=== PATIENT | male | born 2000 | race Caucasian/White ===

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

== ENCOUNTER 2022-10-23 01:16 | Emergency (ER) | payer BC ==
[2022-10-23 01:24] VITALS: TEMP 99.1
[2022-10-23] MEDS ORDERED: IBUPROFEN 400 MG TAB PO STA (02:36)
--- NOTE | 2022-10-23 02:42 | XR ---
EXAM: XR Right Hand Complete, 3 or More Views CLINICAL HISTORY: ITS.REASON XR Reason: pain TECHNIQUE: Frontal, lateral and oblique views of the right hand. COMPARISON: No relevant prior studies available. FINDINGS: Bones/joints: Transverse fracture of the proximal shaft of the first metacarpal with mild angulation. Soft tissues: Unremarkable. No radiopaque foreign body. IMPRESSION: Transverse fracture of the proximal shaft of the first metacarpal with mild angulation.
--- NOTE | 2022-10-23 03:04 | ED ---
Upper Extremity HPI - General Chief Complaint: Extremity Injury, Upper Stated Complaint: Right Hand Injury Time Seen by Provider: 10/23/22 02:26 Source: patient Mode of arrival: ambulatory - History of Present Illness Initial Comments: 22-year-old male presenting with chief complaint of right hand pain. Patient states that he was angry and punched a concrete wall. He is having pain at the base of the first metacarpal. No snuffbox tenderness. Pain with range of motion. He admits to swelling. - Related Data Allergies Allergy/AdvReac Type Severity Reaction Status Date / Time No Known Allergies Allergy Verified 10/23/22 01:24 Review of Systems ROS Statement: Those systems with pertinent positive or pertinent negative responses have been documented in the HPI. ROS Other: All systems not noted in ROS Statement are negative. Past Medical History Past Medical History: No Reported History History of Any Multi-Drug Resistant Organisms: None Reported Past Surgical History: No Surgical Hx Reported Past Psychological History: ADD/ADHD Smoking Status: Vaper Past Alcohol Use History: None Reported Past Drug Use History: None Reported General Exam Limitations: no limitations General appearance: alert, in no apparent distress Head exam: Present: atraumatic, normocephalic, normal inspection Eye exam: Present: normal appearance, EOMI Neck exam: Present: normal inspection, full ROM Right Forearm Wrist exam: Absent: tenderness over anatomical snuff box Hand Wrist exam: Present: full ROM, tenderness, swelling (base of the first metacarpal) Vascular: Absent: vascular compromise Neurological exam: Present: alert, oriented X3, CN II-XII intact Psychiatric exam: Present: normal affect, normal mood Skin exam: Present: warm, dry, intact, normal color. Absent: rash Course Vital Signs 10/23/22 10/23/22 01:22 03:16 Temperature 99.1 F Pulse Rate 71 75 Respiratory 16 18 Rate Blood Pressure 111/67 112/71 O2 Sat by Pulse 97 97 Oximetry Procedures - Orthopedic Splinting/Casting Injury #1 Side: right Upper Extremity Injury Location: hand Upper Extremity Immobilizer: thumb spica Medical Decision Making - Medical Decision Making Was pt. sent in by a medical professional or institution (, PA, NET TECHNICAL ARCHITECT, urgent care, hospital, or [place] [facility] facility...) When possible be specific @ -No Did you speak to anyone other than the patient for history (EMS, parent, family, police, friend...)? What history was obtained from this source @ -No Did you review nursing and triage notes (agree or disagree)? Why? @ -I reviewed and agree with nursing and triage notes Were old charts reviewed (outside hosp., previous admission, EMS record, old EKG, old radiological studies, urgent care reports/EKG's, [place] [facility] facility records)? Report findings @ -No old charts were reviewed Differential Diagnosis (chest pain, altered mental status, abdominal pain women, abdominal pain men, vaginal bleeding, weakness, fever, dyspnea, syncope, headache, dizziness, GI bleed, back pain, seizure, CVA, palpatations, mental health, musculoskeletal)? @ -Differential Musculoskeletal Muscular strain, contusion, ligament sprain, fracture, arthritis, septic arthr itis, bursitis, cellulitis, muscle spasm, nerve compression, DVT, arterial occlusion, herpes zoster, electrolyte abnormality, tumor.... This is not meant to be in all inclusive list EKG interpreted by me (3pts min.). @ -As above X-rays interpreted by me (1pt min.). @ -Transverse fracture of the proximal shaft of the first metacarpal with mild angulation CT interpreted by me (1pt min.). @ -None done U/S interpreted by me (1pt. min.). @ -None done What testing was considered but not performed or refused? (CT, X-rays, U/S, labs)? Why? @ -None What meds were considered but not given or refused? Why? @ -None Did you discuss the management of the patient with other professionals (professionals i.e. , PA, NET TECHNICAL ARCHITECT, lab, RT, psych nurse, social science instructor, diagnostic tech, teacher, corporate officer, employment evaluator/case manager)? Give summary @ -No Was smoking cessation discussed for >3mins.? @ -No Was critical care preformed (if so, how long)? @ -No Were there social determinants of health that impacted care today? How? (Homelessness, low income, unemployed, alcoholism, drug addiction, transportation, low edu. Level, literacy, decrease access to med. care, longterm, rehab)? @ -No Was there de-escalation of care discussed even if they declined (Discuss DNR or withdrawal of care, Hospice)? DNR status @ -No What co-morbidities impacted this encounter? (DM, HTN, Smoking, COPD, CAD, Cancer, CVA, ARF, Chemo, Hep., AIDS, mental health diagnosis, sleep apnea, morbid obesity)? @ -None Was patient admitted / discharged? Hospital course, mention meds given and route, prescriptions, significant lab abnormalities, going to OR and other pertinent info. @ -22-year-old male presenting with chief complaint of right hand pain after punching a wall out of anger. X-ray shows fracture at the base of the first metacarpal. Patient is placed in thumb spica splint and educated on supportive management. Instructed to follow up with orthopedics. Follow-up with PCP. Report back to ER with any new or worsening symptoms. Discussed return parameters and answered all questions. Patient conveyed verbal understanding and agreed to the plan. I discussed this case in detail with my attending Dr. Rankin Undiagnosed new problem with uncertain prognosis? @ -No Drug Therapy requiring intensive monitoring for toxicity (Heparin, Nitro, Insulin, Cardizem)? @ -No Were any procedures done? @ -Thumb spica splint applied Diagnosis/symptom? @ -Thumb fracture Acute, or Chronic, or Acute on Chronic? @ -Acute Uncomplicated (without systemic symptoms) or Complicated (systemic symptoms)? @ -Uncomplicated Side effects of treatment? @ -No Exacerbation, Progression, or Severe Exacerbation? @ -No Poses a threat to life or bodily function? How? (Chest pain, [place], [place], pneumonia, PE, COPD, DKA, ARF, appy, cholecystitis, CVA, Diverticulitis, Homicidal, Suicidal, threat to staff... and all critical care pts) @ -No Disposition Clinical Impression: First metacarpal bone fracture Disposition: HOME SELF-CARE Condition: Good Instructions (If sedation given, give patient instructions): Thumb Fracture (ED) Additional Instructions: Follow up with orthopedics. Report back to ER with any new or worsening symptoms. Take Motrin and Tylenol as needed for pain control. Is patient prescribed a controlled substance at d/c from ED?: No Referrals: Curt Maurer MD [Primary Care Provider] - 1-2 days Norberto Tate DO [Doctor of Osteopathic Medicine] - 1-2 days Time of Disposition: 03:04
[2022-10-23 03:17] VITALS: BP 112/71; PULSE 75; RESP 18
== END 2022-10-23 03:55 | disposition home or self-care (01) ==
LOC: EC 01:16
DX: S62.241A Displaced fracture of shaft of first metacarpal bone, right hand, initial encounter for closed fracture (principal); F17.290 Nicotine dependence, other tobacco product, uncomplicated; Z86.59 Personal history of other mental and behavioral disorders; W22.09XA Striking against other stationary object, initial encounter
CPT/HCPCS: 29125; 99283

== ENCOUNTER 2023-08-15 06:35 | Emergency (ER) | payer BC, OTHER ==
[2023-08-15] MEDS: SODIUM CHLORIDE 0.9% 1,000 ML IV STA (06:58)
[2023-08-15 07:00] VITALS: TEMP 98
[2023-08-15] MEDS: levETIRAcetam IV 500 MG/5 ML VIAL IVP STA (07:00)
--- NOTE | 2023-08-15 07:11 | ED ---
General Adult HPI - General Source: patient, RN notes reviewed, old records reviewed Mode of arrival: EMS Limitations: no limitations <Silvio Keith - Last Filed: 08/15/23 07:08> <Sidney Monroy - Last Filed: 08/15/23 09:03> - General Chief complaint: Seizure Stated complaint: Seizure Time Seen by Provider: 08/15/23 06:38 - History of Present Illness Initial comments: Patient is a 23-year-old male who presents emergency department for seizure. Apparently had 2 seizures at home this morning. Patient is a poor historian regarding this. He was postictal afterwards. He woke up "seizing in bed." He was violent at the scene initially but he is alert and oriented x 4 at this time. No history of seizures. No recent trauma. Is not on blood thinners. Endorses drinking alcohol last night as well as frequent marijuana use. No other drugs. Presents for further evaluation at this time.Denies any loss of bowel or bladder. Denies biting his tongue. (Silvio Keith) - Related Data Previous Rx's Medication Instructions Recorded levETIRAcetam [Keppra] 500 mg PO Q12HR #60 tab 08/15/23 Allergies Allergy/AdvReac Type Severity Reaction Status Date / Time red dye AdvReac inflammatio Verified 08/15/23 08:18 n Review of Systems ROS Other: All systems not noted in ROS Statement are negative. <Silvio Keith - Last Filed: 08/15/23 07:08> ROS Other: All systems not noted in ROS Statement are negative. <Sidney Monroy - Last Filed: 08/15/23 09:03> ROS Statement: Those systems with pertinent positive or pertinent negative responses have been documented in the HPI. Review of Systems: CONST: Denies fever EYES: Denies blurry vision ENT: Denies nasal congestion C/V: Denies Chest pain RESP: Denies shortness of breath GI: Denies abdominal pain : Denies dysuria SKIN: Denies rash. MSK: Denies joint pain. 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 HEAD: Normal with no signs of head trauma. EYES: PERRLA, EOMI, conjunctiva normal, no discharge. Pupils are 3 mm and equal bilaterally. ENT: Hearing grossly intact, normal oropharynx. RESPIRATORY: Clear breath sounds bilaterally. No wheezes, rales, or rhonchi. C/V: Regular rate and rhythm. S1 and S2 auscultated, no edema, peripheral pulses 2+ and intact throughout ABD: Abd is soft, nontender, nondistended EXT: Normal range of motion, no obvious deformity SKIN: No rashes or lesions observed on exposed skin. NEURO: Alert and oriented x 4. Cranial nerves II-XII intact. No focal sensory or strength deficits. GCS 15. NIH is 0. (Silvio Keith) Course Vital Signs 08/15/23 08/15/23 06:36 07:35 Temperature 98 F Pulse Rate 73 65 Respiratory 18 16 Rate Blood Pressure 117/74 112/78 O2 Sat by Pulse 96 97 Oximetry Medical Decision Making - EKG Data -: EKG Interpreted by Me <Silvio Keith - Last Filed: 08/15/23 07:08> - Lab Data Result diagrams: 08/15/23 06:55 08/15/23 06:55 <MonroySidney - Last Filed: 08/15/23 09:03> - Medical Decision Making Was pt. sent in by a medical professional or institution (, PA, AIRFLIGHT ATTENDANTS SUPERVISOR, urgent care, hospital, or residential...) When possible be specific @ -No Did you speak to anyone other than the patient for history (EMS, parent, family, police, friend...)? What history was obtained from this source @ -No Did you review nursing and triage notes (agree or disagree)? Why? @ -I reviewed and agree with nursing and triage notes Were old charts reviewed (outside hosp., previous admission, EMS record, old EKG, old radiological studies, urgent care reports/EKG's, residential records)? Report findings @ -No old charts were reviewed Differential Diagnosis (chest pain, altered mental status, abdominal pain women, abdominal pain men, vaginal bleeding, weakness, fever, dyspnea, syncope, headache, dizziness, GI bleed, back pain, seizure, CVA, palpatations, mental health, musculoskeletal)? @ -Differential Seizure: Recurrent seizure disorder, febrile seizure, alcohol withdrawal, stimulants, meningitis, encephalitis, intercranial hemorrhage, intracranial tumor, stroke, eclampsia, thyrotoxicosis, hypocalcemia, hyponatremia, hypernatremia, hypomagnesemia, psychogenic, this is not meant to be an all-inclusive list. EKG interpreted by me (3pts min.). @ -As above X-rays interpreted by me (1pt min.). @ -None done CT interpreted by me (1pt min.). @ -Pending U/S interpreted by me (1pt. min.). @ -None done What testing was considered but not performed or refused? (CT, X-rays, U/S, labs)? Why? @ -None What meds were considered but not given or refused? Why? @ -None Did you discuss the management of the patient with other professionals (professionals i.e. , PA, AIRFLIGHT ATTENDANTS SUPERVISOR, lab, RT, psych nurse, healthcare social worker, bartender manager, teacher, air defence officer, case investigator)? Give summary @ -No Was smoking cessation discussed for >3mins.? @ -No Was critical care preformed (if so, how long)? @ -No Were there social determinants of health that impacted care today? How? (Homelessness, low income, unemployed, alcoholism, drug addiction, trans portation, low edu. Level, literacy, decrease access to med. care, long-term, rehab)? @ -No Was there de-escalation of care discussed even if they declined (Discuss DNR or withdrawal of care, Hospice)? DNR status @ -No What co-morbidities impacted this encounter? (DM, HTN, Smoking, COPD, CAD, Cancer, CVA, ARF, Chemo, Hep., AIDS, mental health diagnosis, sleep apnea, morbid obesity)? @ -None Was patient admitted / discharged? Hospital course, mention meds given and route, prescriptions, significant lab abnormalities, going to OR and other pertinent info. @ -Patient presents with 2 seizures from home. Would be new onset seizure. Apparently witnessed in bed. Patient currently has no acute complaints is not postictal at this time but apparently was postictal at the scene. Presents for further evaluation. Vital signs currently within acceptable limits. Will obtain seizure workup including CT brain. Patient in agreement this plan. He is administered IV Keppra at this time as well. EKG shows no signs of acute ischemia. Remainder the workup pending at this time. Patient signed out to Dr. Monroy pending results of workup. Undiagnosed new problem with uncertain prognosis? @ -No Drug Therapy requiring intensive monitoring for toxicity (Heparin, Nitro, Insulin, Cardizem)? @ -No Were any procedures done? @ -No (Silvio Keith) CT brain interpreted by myself shows no acute process. Patient reevaluated. Patient is updated on results. Patient was recommended admission secondary to 2 seizures. Case was also discussed with neurology Dr. Vidal who agrees with admission secondary to second seizure. He will evaluate today. Patient was recommended admission for purposes of neurology evaluation and possible medication. Patient refuses this. Patient does demonstrate medical decision-making. Patient is alert and appropriate. Patient refuses admission and will leave AGAINST MEDICAL ADVICE. Patient is agreeable to follow-up with his doctor for neurology consult. Patient is made aware of state law of no driving 6 months Patient also advised on avoiding anything with potential injury at work. (Sidney Monroy) - Lab Data Lab Results 08/15/23 08/15/23 08/15/23 Range/Units 06:55 06:55 07:00 WBC 6.9 (3.8-10.6) k/uL RBC 4.93 (4.30-5.90) m/uL Hgb 15.3 (13.0-17.5) gm/dL Hct 45.8 (39.0-53.0) % MCV 93.0 (80.0-100.0) fL MCH 31.0 (25.0-35.0) pg MCHC 33.3 (31.0-37.0) g/dL RDW 11.7 (11.5-15.5) % Plt Count 261 (150-450) k/uL MPV 7.0 Neutrophils % 48 % Lymphocytes % 40 % Monocytes % 7 % Eosinophils % 2 % Basophils % 1 % Neutrophils # 3.3 (1.3-7.7) k/uL Lymphocytes # 2.8 (1.0-4.8) k/uL Monocytes # 0.5 (0-1.0) k/uL Eosinophils # 0.2 (0-0.7) k/uL Basophils # 0.0 (0-0.2) k/uL Sodium 139 (137-145) mmol/L Potassium 4.5 (3.5-5.1) mmol/L Chloride 108 H (98-107) mmol/L Carbon Dioxide 22 (22-30) mmol/L Anion Gap 9 mmol/L BUN 12 (9-20) mg/dL Creatinine 0.81 (0.66-1.25) mg/dL Est GFR (CKD-EPI)AfAm >90 (>60 ml/min/1.73 sqM) Est GFR (CKD-EPI)NonAf >90 (>60 ml/min/1.73 sqM) Glucose 93 (74-99) mg/dL Calcium 9.2 (8.4-10.2) mg/dL Magnesium 1.9 (1.6-2.3) mg/dL Total Bilirubin 0.5 (0.2-1.3) mg/dL AST 33 (17-59) U/L ALT 19 (4-49) U/L Alkaline Phosphatase 77 (38-126) U/L Total Protein 6.9 (6.3-8.2) g/dL Albumin 4.4 (3.5-5.0) g/dL Urine Color Yellow Urine Appearance Clear (Clear) Urine pH 5.5 (5.0-8.0) Ur Specific [place] 1.022 (1.001-1.035) Urine Protein Trace H (Negative) Urine Glucose (UA) Negative (Negative) Urine Ketones Trace H (Negative) Urine Blood Negative (Negative) Urine Nitrite Negative (Negative) Urine Bilirubin Negative (Negative) Urine Urobilinogen <2.0 (<2.0) mg/dL Ur Leukocyte Esterase Negative (Negative) Urine Opiates Screen Not Detected (NotDetected) Ur Oxycodone Screen Not Detected (NotDetected) Urine Methadone Screen Not Detected (NotDetected) Ur Barbiturates Screen Not Detected (NotDetected) U Tricyclic Antidepress Not Detected (NotDetected) Ur Phencyclidine Scrn Not Detected (NotDetected) Ur Amphetamines Screen Not Detected (NotDetected) U Methamphetamines Scrn Not Detected (NotDetected) U Benzodiazepines Scrn Not Detected (NotDetected) Urine Cocaine Screen Not Detected (NotDetected) U Marijuana (THC) Screen Detected H (NotDetected) Serum Alcohol <10 mg/dL - EKG Data EKG Comments: 12-lead Electrocardiogram Interpretation Note EKG was reviewed and interpreted by myself. 12-lead ECG performed at 0644 is interpreted by me as revealing normal sinus rhythm at a rate of 76 beats per minute. Constantia is normal. TN interval is 151 ms, QRS durations 99 ms, QTc is 447 ms.. There were no ST or T wave abnormalities to suggest myocardial ischemia or injury. R wave progression across the precordium was satisfactory. By my interpretation this EKG is non-diagnostic for acute ischemia. (Silvio Keith) Disposition <Silvio Keith - Last Filed: 08/15/23 07:08> Is patient prescribed a controlled substance at d/c from ED?: No Time of Disposition: 09:02 <Sidney Monroy - Last Filed: 08/15/23 09:03> Clinical Impression: New onset seizure Disposition: LEFT AGAINST MEDICAL ADVICE Instructions (If sedation given, give patient instructions): Seizure/Epilepsy Discharge Instructions & Follow-Up Additional Instructions: No driving until 6 months seizure-free. Please do follow-up with your primary care physician in the next day or 2 and consider neurology evaluation. Return for recurrent seizures, worsening symptoms or other concerns. Prescription sent to pharmacy Prescriptions: levETIRAcetam [Keppra] 500 mg PO Q12HR #60 tab Referrals: Curt Maurer MD [Primary Care Provider] - 1-2 days
[2023-08-15 07:15] LABS: Basophils % (A) 1 %; Eosinophils # (A) 0.2 k/uL (0-0.7); Eosinophils % (A) 2 %; HCT 45.8 % (39.0-53.0); HGB 15.3 gm/dL (13.0-17.5); Lymphocytes # (A) 2.8 k/uL (1.0-4.8); Lymphocytes % (A) 40 %; MCHC 33.3 g/dL (31.0-37.0); Monocytes # (A) 0.5 k/uL (0-1.0); Monocytes % (A) 7 %; Neutrophils # (A) 3.3 k/uL (1.3-7.7); Neutrophils % (A) 48 %; Platelet Count 261 k/uL (150-450); RBC 4.93 m/uL (4.30-5.90); RDW 11.7 % (11.5-15.5); WBC 6.9 k/uL (3.8-10.6)
[2023-08-15 07:27] LABS: Appearance,Urine Clear (Clear); Bilirubin,Urine Negative (Negative); Blood,Urine Negative (Negative); Color,Urine Yellow; Glucose,Urine (UA) Negative (Negative); Ketones,Urine Trace (Negative); Leukocyte Esterase,Urine Negative (Negative); Nitrite,Urine Negative (Negative); PH, Urine 5.5 (5.0-8.0); Protein,Urine Trace (Negative); Specific Gravity,Urine 1.022 (1.001-1.035); Urobilinogen,Urine <2.0 mg/dL (<2.0)
[2023-08-15 07:35] LABS: ALT 19 U/L (4-49); AST 33 U/L (17-59); African American GFR (CKD) >90 (>60 ml/min/1.73 sqM); Albumin 4.4 g/dL (3.5-5.0); Alcohol <10 mg/dL; Alkaline Phosphatase 77 U/L (38-126); Anion Gap 9 mmol/L; Blood Urea Nitrogen 12 mg/dL (9-20); Calcium 9.2 mg/dL (8.4-10.2); Carbon Dioxide 22 mmol/L (22-30); Chloride 108 mmol/L (98-107); Glucose 93 mg/dL (74-99); Magnesium 1.9 mg/dL (1.6-2.3); Non-African American GFR(CKD) >90 (>60 ml/min/1.73 sqM); Potassium 4.5 mmol/L (3.5-5.1); Sodium 139 mmol/L (137-145); Total Bilirubin 0.5 mg/dL (0.2-1.3); Total Protein 6.9 g/dL (6.3-8.2)
[2023-08-15 07:53] LABS: Amphetamine Screen,Urine Not Detected (NotDetected); Barbiturate Screen,Urine Not Detected (NotDetected); Benzodiazepines Screen,Urine Not Detected (NotDetected); Cocaine Screen,Urine Not Detected (NotDetected); Methadone Screen, Urine Not Detected (NotDetected); Opiate Screen,Urine Not Detected (NotDetected); Oxycodone Screen, Urine Not Detected (NotDetected); Phencyclidine Screen,Urine Not Detected (NotDetected); Tricyclic Antidepressant,Urine Not Detected (NotDetected); Urn Cannabinoid Scrn Detected (NotDetected)
--- NOTE | 2023-08-15 08:11 | CT ---
EXAMINATION TYPE: CT brain wo con DATE OF EXAM: 08/15/2023 COMPARISON: None INDICATION: Seizure activity DLP: 1064.4 mGycm, Automated exposure control for dose reduction was used. CONTRAST: None CT of the brain is performed utilizing 3 mm thick sections through the posterior fossa and 3 mm thick sections through the remaining calvarium. Study is performed within 24 hours of arrival to the hosp [place]. No abnormal hyperdensity is present to suggest an acute intracranial hemorrhage. No mass lesion is evident. No acute infarcts are evident. Ventricles and sulci are appropriate for the patient age. Paranasal sinuses and mastoid air cells within the [id number] are clear. IMPRESSION: 1. No acute intracranial process. MRI can be performed as clinically indicated.
[2023-08-15] MEDS ORDERED: levETIRAcetam 500 MG TAB PO STA (09:03)
[2023-08-15 09:43] VITALS: BP 114/75; PULSE 63; RESP 20
== END 2023-08-15 09:08 | disposition left against medical advice (07) ==
LOC: SUPCPDRO 06:35 → EC 06:35
DX: R56.9 Unspecified convulsions (principal); F17.290 Nicotine dependence, other tobacco product, uncomplicated; Z91.041 Radiographic dye allergy status; Z53.29 Procedure and treatment not carried out because of patient's decision for other reasons
CPT/HCPCS: 36415; 93005; 80053; 83735; 85025; 81003; 80306; 80320; 70450; 99285; 96374; 96361; J1953

== ENCOUNTER 2023-09-01 15:47 | Emergency (ER) | payer OTHER ==
[2023-09-01 15:53] VITALS: TEMP 98.9
--- NOTE | 2023-09-01 16:18 | ED ---
General Adult HPI - General Chief complaint: Shortness of Breath Stated complaint: L lung hurts Time Seen by Provider: 09/01/23 15:57 Source: patient Mode of arrival: ambulatory Limitations: no limitations - History of Present Illness Initial comments: Dictation was produced using orangutrans dictation software. please excuse any grammatical, word or spelling errors. Chief Complaint: 23-year-old male with rib pain History of Present Illness: 23-year-old male presents to the emergency department with left lateral rib pain. Patient states that his symptoms have been ongoing for the last couple days. He was cutting grass started to feel like he was having a allergic reaction to environmental allergens. States that it felt like his pain was worse then. Patient states it is worse when he takes a deep breath. Denies any fever. No shortness of breath. The ROS documented in this emergency department record has been reviewed and confirmed by me. Those systems with pertinent positive or negative responses have been documented in the HPI. All other systems are other negative and/or noncontributory. - Related Data Previous Rx's Medication Instructions Recorded levETIRAcetam [Keppra] 500 mg PO Q12HR #60 tab 08/15/23 Allergies Allergy/AdvReac Type Severity Reaction Status Date / Time red dye AdvReac inflammatio Verified 08/15/23 08:18 n Review of Systems ROS Statement: Those systems with pertinent positive or pertinent negative responses have been documented in the HPI. ROS Other: All systems not noted in ROS Statement are negative. Past Medical History Past Medical History: No Reported History, Seizure Disorder History of Any Multi-Drug Resistant Organisms: None Reported Past Surgical History: No Surgical Hx Reported Past Psychological History: ADD/ADHD Smoking Status: Vaper Past Alcohol Use History: None Reported Past Drug Use History: None Reported, Marijuana General Exam - General Exam Comments Initial Comments: PHYSICAL EXAM: General Impression: Alert and oriented x3, not in acute distress HEENT: Normocephalic atraumatic, extra-ocular movements intact, pupils equal and reactive to light bilaterally, mucous membranes moist. Cardiovascular: Heart regular rate and rhythm Chest: Able to complete full sentences, no retractions, no tachypnea, reproducible palpatory tenderness to the left lateral rib Abdomen: abdomen soft, non-tender, non-distended, no organomegaly Musculoskeletal: Pulses present and equal in all extremities, no peripheral edema Motor: no focal deficits noted Neurological: CN II-XII grossly intact, no focal motor or sensory deficits noted Skin: Intact with no visualized rashes Psych: Normal affect and mood Limitations: no limitations Course Vital Signs 09/01/23 09/01/23 09/01/23 15:50 16:47 17:30 Temperature 98.9 F Pulse Rate 58 L 62 Respiratory 20 16 16 Rate Blood Pressure 104/63 111/70 O2 Sat by Pulse 98 98 Oximetry Medical Decision Making - Medical Decision Making Was pt. sent in by a medical professional or institution (, SABINE, ROTOGRAVURE PRESS OPERATOR, urgent care, hospital, or fdc...) When possible be specific @ -No Did you speak to anyone other than the patient for history (EMS, parent, family, police, friend...)? What history was obtained from this source @ -No Did you review nursing and triage notes (agree or disagree)? Why? @ -I reviewed and agree with nursing and triage notes Were old charts reviewed (outside hosp., previous admission, EMS record, old EKG, old radiological studies, urgent care reports/EKG's, fdc records)? Report findings @ -No old charts were reviewed Differential Diagnosis (chest pain, altered mental status, abdominal pain women, abdominal pain men, vaginal bleeding, musculoskeletal, weakness, fever, dyspnea, syncope, headache, dizziness, GI bleed, back pain, seizure, CVA, palpatations, mental health)? @ -Differential Chest Pain: Stable Angina, Unstable Angina, STEMI, NSTEMI Aortic Dissection, Pneumothorax, Musculoskeletal, Esophageal Spasm GERD, Cholecystitis, Pancreatitis, Zoster, this is not meant to be an all-inclusive list. EKG interpreted by me (3pts min.). @ -None done X-rays interpreted by me (1pt min.). @ -Chest x-ray is nonacute CT interpreted by me (1pt min.). @ -None done U/S interpreted by me (1pt. min.). @ -None done What testing was considered but not performed or refused? (CT, X-rays, U/S, labs)? Why? @ -None What meds were considered but not given or refused? Why? @ -None Did you discuss the management of the patient with other professionals (professionals i.e. , SABINE, ROTOGRAVURE PRESS OPERATOR, lab, RT, psych nurse, social work nurse, commissioning specialist, teacher, lodge officer, case advocate)? Give summary @ -No Was smoking cessation discussed for >3mins.? @ -No Was critical care preformed (if so, how long)? @ -No Were there social determinants of health that impacted care today? How? (Homelessness, low income, unemployed, alcoholism, drug addiction, transportation, low edu. Level, literacy, decrease access to med. care, retirement, rehab)? @ -No Was there de-escalation of care discussed even if they declined (Discuss DNR or withdrawal of care, Hospice)? DNR status @ -No What co-morbidities impacted this encounter? (DM, HTN, Smoking, COPD, CAD, Cancer, CVA, ARF, Chemo, Hep., AIDS, mental health diagnosis, sleep apnea, morbid obesity)? @ -None Was patient admitted / discharged? Hospital course, mention meds given and route, prescriptions, significant lab abnormalities, going to OR and other pertinent info. @ -23-year-old male presents emergency department clinical presentation consistent with rib strain. Vital signs stable. Physical examination is benign. X-ray is nonacute. Patient given Lidoderm patch discharge told to take [id number] analgesics. Undiagnosed new problem with uncertain prognosis? @ -No Drug Therapy requiring intensive monitoring for toxicity (Heparin, Nitro, Insulin, Cardizem)? @ -No Were any procedures done? @ -No Diagnosis/symptom? Acute, or Chronic, or Acute on Chronic? Uncomplicated (w ithout systemic symptoms) or Complicated (systemic symptoms)? @ -Strain Side effects of treatment? @ -No Exacerbation, Progression, or Severe Exacerbation? @ -No Poses a threat to life or bodily function? How? (Chest pain, [place], [place], pneumonia, PE, COPD, DKA, ARF, appy, cholecystitis, CVA, Diverticulitis, Homicidal, Suicidal, threat to staff... and all critical care pts) @ -No Disposition Clinical Impression: Chest wall muscle strain Disposition: HOME SELF-CARE Condition: Good Instructions (If sedation given, give patient instructions): Chest Wall Pain (ED) Is patient prescribed a controlled substance at d/c from ED?: No Referrals: Curt Maurer MD [Primary Care Provider] - 1-2 days Time of Disposition: 18:02
[2023-09-01] MEDS: LIDOCAINE 4% PATCH TOPICAL ONE (16:34)
[2023-09-01 16:49] VITALS: RESP 16
[2023-09-01] MEDS: IBUPROFEN 600 MG TAB PO STA (17:49)
--- NOTE | 2023-09-01 18:05 | XR ---
EXAMINATION TYPE: XR chest 2V DATE OF EXAM: 09/01/2023 5:12 PM CLINICAL INDICATION:Male, 23 years old with history of rib pain; [facility] COMPARISON: None TECHNIQUE: XR chest 2V. Frontal and lateral views of the chest.. FINDINGS: Lines/Tubes/Devices: No indwelling lines are seen. Heart/mediastinum: Heart size is normal. Mediastinum appears normal. Pulmonary vascularity: Not increased, Lungs/Pleura: There is a small vague patch of opacity in the left midlung zone suggestive of small in filtrate. Lungs and pleural spaces are otherwise clear. Musculoskeletal: No acute osseous abnormality demonstrated in the limits of the exam. Other findings: None. IMPRESSION: Small focal opacity in the left midlung zone, may represent evolving pneumonia. Correlate clinically, and follow-up to resolution.
[2023-09-01 18:08] VITALS: BP 118/82; PULSE 91
== END 2023-09-01 18:07 | disposition home or self-care (01) ==
LOC: EC 15:47
DX: S29.011A Strain of muscle and tendon of front wall of thorax, initial encounter (principal); F17.290 Nicotine dependence, other tobacco product, uncomplicated; Z91.041 Radiographic dye allergy status; X58.XXXA Exposure to other specified factors, initial encounter
CPT/HCPCS: 71046; 99285

== ENCOUNTER 2023-09-09 20:46 | Emergency (ER) | payer OTHER ==
[2023-09-09 20:53] VITALS: RESP 18; TEMP 98.8
--- NOTE | 2023-09-09 21:12 | ED ---
Chest Pain HPI - General Source: patient, RN notes reviewed Mode of arrival: ambulatory Limitations: no limitations <Octavia Aguilar - Last Filed: 09/09/23 23:20> <Chong Desir - Last Filed: 09/10/23 15:32> - General Chief Complaint: Chest Pain Stated Complaint: Rib pain Time Seen by Provider: 09/09/23 21:06 - History of Present Illness Initial Comments: 23-year-old male with no significant past medical history presenting to the ER with chief complaint of left-sided chest pain x 1 week. Reports he was cutting the lawn last week when he started to feel the pain on the left side. He describes the pain as a 9 out of 10, sharp in quality, and he feels like he cannot take a full breath because the pain is so severe. He reports it feels as though there is something inside of his left lung that is preventing him from taking a deep breath. The pain radiates to the back. He was seen in the ER for this last week where a chest x-ray was performed and he was told he had a muscle strain. He has been taking ibuprofen and using the lidocaine patches with little relief. Denies midsternal chest pain, cough, wheezing, fever, nasal congestion, sore throat, abdominal pain, vomiting. He has never had this before. (Octavia Aguilar) - Related Data Home Medications Medication Instructions Recorded Confirmed Azithromycin [Zithromax] See Taper PO DIRECTED 09/10/23 09/10/23 Previous Rx's Medication Instructions Recorded traMADol HCl [Ultram] 50 mg PO Q6H PRN #12 tab 09/10/23 Allergies Allergy/AdvReac Type Severity Reaction Status Date / Time gluten AdvReac Unknown Verified 09/10/23 11:56 lactose AdvReac Diarrhea Verified 09/10/23 11:56 red dye AdvReac inflammatio Verified 09/10/23 11:56 n Review of Systems ROS Other: All systems not noted in ROS Statement are negative. <Octavia Aguilar - Last Filed: 09/09/23 23:20> ROS Other: All systems not noted in ROS Statement are negative. <Chong Desir - Last Filed: 09/10/23 15:32> ROS Statement: Those systems with pertinent positive or pertinent negative responses have been documented in the HPI. Past Medical History Past Medical History: No Reported History, Seizure Disorder History of Any Multi-Drug Resistant Organisms: None Reported Past Surgical History: No Surgical Hx Reported Past Psychological History: ADD/ADHD Smoking Status: Current every day smoker, Vaper Past Alcohol Use History: None Reported Past Drug Use History: None Reported <Octavia Aguilar - Last Filed: 09/09/23 23:20> General Exam Limitations: no limitations General appearance: alert, in no apparent distress Head exam: Present: atraumatic, normocephalic, normal inspection Eye exam: Present: normal appearance, PERRL, EOMI. Absent: scleral icterus, conjunctival injection, periorbital swelling ENT exam: Present: normal exam, mucous membranes moist Neck exam: Present: normal inspection. Absent: tenderness, meningismus, lymphadenopathy Respiratory exam: Present: normal lung sounds bilaterally, chest wall tenderness (Reproducible tenderness on lateral left ribs). Absent: respiratory distress, wheezes, rales, rhonchi, stridor Cardiovascular Exam: Present: regular rate, normal rhythm, normal heart sounds. Absent: systolic murmur, diastolic murmur, rubs, gallop, clicks GI/Abdominal exam: Present: soft, normal bowel sounds. Absent: distended, tenderness, guarding, rebound, rigid Extremities exam: Present: normal inspection, full ROM, normal capillary refill. Absent: tenderness, pedal edema, joint swelling, calf tenderness Back exam: Present: normal inspection Neurological exam: Present: alert, oriented X3, CN II-XII intact Psychiatric exam: Present: normal affect, normal mood Skin exam: Present: warm, dry, intact, normal color. Absent: rash <Octavia Aguilar - Last Filed: 09/09/23 23:20> Course Vital Signs 09/09/23 09/10/23 20:51 02:40 Temperature 98.8 F Pulse Rate 95 89 Respiratory 18 18 Rate Blood Pressure 126/75 118/69 O2 Sat by Pulse 97 97 Oximetry Chest Pain [facility] <Octavia Aguilar - Last Filed: 09/09/23 23:20> <Chong Desir - Last Filed: 09/10/23 15:32> - [facility] EKG reveals normal sinus rhythm with no ST changes. Ventricular rate 80 bpm, NV interval 125, QRS duration 94, QT/QTc 356/391. Was pt. sent in by a medical professional or institution (Dr., PA, FRUIT OR NUT GROWER, urgent care, hospital, or detention...) When possible be specific @ -[No] Did you speak to anyone other than the patient for history (EMS, parent, family, police, friend...)? What history was obtained from this source @ -[No] Did you review nursing and triage notes (agree or disagree)? Why? @ -[I reviewed and agree with nursing and triage notes] Were old charts reviewed (outside hosp., previous admission, EMS record, old EKG, old radiological studies, urgent care reports/EKG's, detention records)? Report findings @ -Previous ER visit from 1 week ago reviewed, patient was discharged with muscular strain at this time Differential Diagnosis (chest pain, altered mental status, abdominal pain women, abdominal pain men, vaginal bleeding, weakness, fever, dyspnea, syncope, headache, dizziness, GI bleed, back pain, seizure, CVA, palpatations, mental health, musculoskeletal)? @ -Differential Chest Pain: Stable Angina, Unstable Angina, STEMI, NSTEMI Aortic Dissection, Pneumothorax, Musculoskeletal, Esophageal Spasm GERD, Cholecystitis, Pancreatitis, Zoster, this is not meant to be an all-inclusive list. EKG interpreted by me (3pts min.). @ -[As above] X-rays interpreted by me (1pt min.). @ -Chest x-ray reveals new small left pleural effusion with scattered airspace opacities CT interpreted by me (1pt min.). @ -[None done] U/S interpreted by me (1pt. min.). @ -[None done] What testing was considered but not performed or refused? (CT, X-rays, U/S, labs)? Why? @ -[None] What meds were considered but not given or refused? Why? @ -[None] Did you discuss the management of the patient with other professionals (professionals i.e. SABINE Che, FRUIT OR NUT GROWER, lab, RT, psych nurse, social contact worker, internal controls analyst, teacher, gifts officer, hospice case manager)? Give summary @ -[No] Was smoking cessation discussed for >3mins.? @ -[No] Was critical care preformed (if so, how long)? @ -[No] Were there social determinants of health that impacted care today? How? (Homelessness, low income, unemployed, alcoholism, drug addiction, transportation, low edu. Level, literacy, decrease access to med. care, prison, rehab)? @ -[No] Was there de-escalation of care discussed even if they declined (Discuss DNR or withdrawal of care, Hospice)? DNR status @ -[No] What co-morbidities impacted this encounter? (DM, HTN, Smoking, COPD, CAD, Cancer, CVA, ARF, Chemo, Hep., AIDS, mental health diagnosis, sleep apnea, morbid obesity)? @ -[None] Was patient admitted / discharged? Hospital course, mention meds given and route, prescriptions, significant lab abnormalities, going to OR and other pertinent info. @ -Patient was seen and evaluated for left-sided rib pain x 1 week. Vitals upon arrival are unremarkable, heart rate is 95 bpm, he is afebrile, satting 97% on room air. Physical examination is remarkable for reproducible pain of left lateral ribs. Patient is given IM Toradol for pain. EKG was performed and reveals normal sinus rhythm with no ST changes. Chest x-ray reveals new small left pleural effusion with scattered airspace opacities. Lab work including CBC, CMP, troponin, magnesium is remarkable for white blood cell count of 14.4 with left shift, otherwise unremarkable. Case discussed with my attending Dr. Desir and decided to perform a D-dimer at this time to rule out PE. Upon reevaluation, patient is agreeable to the plan. Patient reports pain is unchanged since Toradol injection. Patient is given oral Tylenol. Case signed out to Dr. Desir at 11:15 PM pending D-dimer. (Octavia Aguilar) The patient's D-dimer was mildly elevated and he went for CT scan of the chest which I interpreted as showing presence of left-sided pleural effusion with suspected small infiltrate. There is no evident pulmonary embolism. These findings discussed with the patient and started antibiotics here. They are given follow-up with pulmonology, return parameters discussed Was patient admitted / discharged? Hospital course, mention meds given and route, prescriptions, significant lab abnormalities, going to OR and other pertinent info. @ -[hospital course] Undiagnosed new problem with uncertain prognosis? @ -[No] Drug Therapy requiring intensive monitoring for toxicity (Heparin, Nitro, Insulin, Cardizem)? @ -[No] Were any procedures done? @ -[No] Diagnosis/symptom? @ -[Acute pneumonia Acute pleural effusion Acute, or Chronic, or Acute on Chronic? @ -[Acute Uncomplicated (without systemic symptoms) or Complicated (systemic symptoms)? @ -[Pneumonia complicated by pleural effusion Side effects of treatment? @ -[No] Exacerbation, Progression, or Severe Exacerbation? @ -[No] Poses a threat to life or bodily function? How? (Chest pain, [place], [place], pneumonia, PE, COPD, DKA, ARF, appy, cholecystitis, CVA, Diverticulitis, Homicidal, Suicidal, threat to staff... and all critical care pts) @ -[Yes there is small threat, patient to have close follow-up with pulmonology and return parameters discussed (Chong Desir) Disposition <Octavia Aguilar - Last Filed: 09/09/23 23:20> Is patient prescribed a controlled substance at d/c from ED?: No <Chong Desir - Last Filed: 09/10/23 15:32> Clinical Impression: Pneumonia, Pleural effusion Disposition: HOME SELF-CARE Condition: Good Instructions (If sedation given, give patient instructions): Pleural Effusion (DC), Bacterial Pneumonia (DC) Prescriptions: traMADol HCl [Ultram] 50 mg PO Q6H PRN #12 tab PRN Reason: Pain Referrals: Curt Maurer MD [Primary Care Provider] - 1-2 days Nohemy Antunez MD [STAFF PHYSICIAN] - 1-2 days
--- NOTE | 2023-09-09 21:46 | XR ---
EXAMINATION TYPE: XR chest 2V DATE OF EXAM: 09/09/2023 9:32 PM CLINICAL INDICATION:Male, 23 years old with history of chest pain; [facility] COMPARISON: Chest radiographs from TECHNIQUE: XR chest 2V Frontal and lateral views of the chest. FINDINGS: Lungs/Pleura: New left blunting costophrenic angle. There our scattered airspace opacities in the lef t lung. There is no evidence of right pleural effusion, right focal consolidation, or pneumothorax. Pulmonary vascularity: Unremarkable. Heart/mediastinum: Cardiomediastinal silhouette is unremarkable. Musculoskeletal: No acute osseous pathology. Other findings: None IMPRESSION: New small left pleural effusion scattered airspace opacities. Correlate for pneumonia.
[2023-09-09] MEDS: KETOROLAC 15 MG/ML 1 ML VIAL IM STA (21:55)
[2023-09-09 22:08] LABS: ALT 20 U/L (4-49); AST 18 U/L (17-59); African American GFR (CKD) >90 (>60 ml/min/1.73 sqM); Albumin 4.2 g/dL (3.5-5.0); Alkaline Phosphatase 81 U/L (38-126); Anion Gap 8 mmol/L; Blood Urea Nitrogen 10 mg/dL (9-20); Carbon Dioxide 27 mmol/L (22-30); Chloride 103 mmol/L (98-107); Glucose 101 mg/dL (74-99); Magnesium 1.8 mg/dL (1.6-2.3); Non-African American GFR(CKD) >90 (>60 ml/min/1.73 sqM); Potassium 4.3 mmol/L (3.5-5.1); Sodium 138 mmol/L (137-145); Total Bilirubin 0.9 mg/dL (0.2-1.3)
[2023-09-09 22:45] LABS: Basophils % (A) 0 %; Eosinophils # (A) 0.1 k/uL (0-0.7); Eosinophils % (A) 1 %; HCT 44.9 % (39.0-53.0); HGB 14.9 gm/dL (13.0-17.5); Lymphocytes # (A) 0.8 k/uL (1.0-4.8); Lymphocytes % (A) 6 %; MCH 30.4 pg (25.0-35.0); MCHC 33.3 g/dL (31.0-37.0); MCV 91.3 fL (80.0-100.0); Mean Platelet Volume 7.3; Monocytes # (A) 1.2 k/uL (0-1.0); Monocytes % (A) 8 %; Neutrophils # (A) 12.2 k/uL (1.3-7.7); Neutrophils % (A) 84 %; Platelet Count 358 k/uL (150-450); RBC 4.92 m/uL (4.30-5.90); RDW 11.7 % (11.5-15.5); WBC 14.4 k/uL (3.8-10.6)
[2023-09-09] MEDS: ACETAMINOPHEN TAB 325 MG TAB PO STA (23:19)
--- NOTE | 2023-09-10 02:06 | CT ---
EXAM: CT Angiography Chest With Intravenous Contrast CLINICAL HISTORY: ITS.REASON CT Reason: pleuritic chest pain, possible PE TECHNIQUE: Axial computed tomographic angiography images of the chest with intravenous contrast. CTDI is 11 mGy and DLP is 265.4 mGy-cm. This CT exam was performed using one or more of the following dose reduction techniques: automated exposure control, adjustment of the mA and/or kV according to patient size, and/or use of iterative reconstruction technique. MIP reconstructed images were created and reviewed. COMPARISON: X-ray chest: 09/09/2023 FINDINGS: Motion-induced image degradation. Pulmonary arteries: Unremarkable. No pulmonary embolism. Aorta: No acute findings. No thoracic aortic aneurysm. Lungs: Lingular ill-defined nodular consolidation. Left lower lobe laterally a pleural-based triangular-shaped consolidation continuous posteriorly along the moderate volume left pleural effusion. Pleural space: There is also a loculated pleural fluid seen in the left lung fissure. No pneumothorax. Heart: Unremarkable. No cardiomegaly. No significant pericardial effusion. No evidence of RV dysfunction. Bones/joints: No acute fracture. No dislocation. Soft tissues: Unremarkable. Lymph nodes: Small subcarinal and hilar lymphadenopathy LT>RT. Other findings: Fatty hepatic infiltration.. IMPRESSION: No pulmonary embolism, aortic aneurysm or dissection. Moderate volume left pleural effusion. Loculated pleural fluid in the left lung fissure. Nodular consolidation of the lingula. In the left lower lobe laterally triangular-shaped pleural-based consolidation . Consolidation/atelectasis in the left lower lobe posteriorly adjacent to the pleural effusion. .
[2023-09-10] MEDS: cefTRIAXone 1,000 MG VIAL (IM USE) IM STA (02:30)
[2023-09-10] MEDS: cefTRIAXone IN SWFI 1,000 MG/10 ML SYRINGE IVP STA (02:33)
[2023-09-10] MEDS: AZITHROMYCIN 500 MG TAB PO STA (02:33)
[2023-09-10 02:41] VITALS: BP 118/69; PULSE 89
== END 2023-09-10 02:41 | disposition home or self-care (01) ==
LOC: EC 20:46
DX: J18.9 Pneumonia, unspecified organism (principal); J90 Pleural effusion, not elsewhere classified; F17.290 Nicotine dependence, other tobacco product, uncomplicated; Z91.041 Radiographic dye allergy status; Z91.018 Allergy to other foods; Z91.011 Allergy to milk products
CPT/HCPCS: 36415; 93005; 85379; 80053; 83735; 84484; 85025; 71046; 71275; 99285; 96374; 96372; J0696; J1885; Q9967

== ENCOUNTER 2023-09-10 11:36 | Inpatient (IN) | payer OTHER ==
--- NOTE | 2023-09-10 12:44 | ED ---
General Adult HPI - General Chief complaint: Shortness of Breath Stated complaint: Abd Pain Time Seen by Provider: 09/10/23 12:00 Source: patient, RN notes reviewed, old records reviewed Mode of arrival: wheelchair Limitations: no limitations - History of Present Illness Initial comments: 23-year-old male presents emergency department chief complaint increasing shortness of breath. Patient has had 2 prior ER visits for similar complaints symptoms are worsening. Patient has CT recently showing evidence of moderate effusion and probable pneumonia. Patient states he started on some antibiotics. Patient denies any significant nasal congestion, prior lung illness states he has no send past medical history no recent traveling. He states he has had night sweats, sweating episodes but is unsure of of known fever. Patient denies any trauma no rashes no GI symptoms. - Related Data Previous Rx's Medication Instructions Recorded levETIRAcetam [Keppra] 500 mg PO Q12HR #60 tab 08/15/23 Azithromycin [Zithromax] 0 mg PO DIRECTED #6 tab 09/10/23 traMADol HCl [Ultram] 50 mg PO Q6H PRN #12 tab 09/10/23 Allergies Allergy/AdvReac Type Severity Reaction Status Date / Time gluten AdvReac Unknown Verified 09/10/23 11:56 lactose AdvReac Diarrhea Verified 09/10/23 11:56 red dye AdvReac inflammatio Verified 09/10/23 11:56 n Review of Systems ROS Statement: Those systems with pertinent positive or pertinent negative responses have been documented in the HPI. ROS Other: All systems not noted in ROS Statement are negative. Past Medical History Past Medical History: No Reported History, Seizure Disorder History of Any Multi-Drug Resistant Organisms: None Reported Past Surgical History: No Surgical Hx Reported Past Psychological History: ADD/ADHD Smoking Status: Current every day smoker, Vaper Past Alcohol Use History: None Reported Past Drug Use History: None Reported General Exam General appearance: alert, in no apparent distress Head exam: Present: atraumatic, normocephalic, normal inspection Eye exam: Present: normal appearance, PERRL, EOMI. Absent: scleral icterus, conjunctival injection, periorbital swelling Respiratory exam: Present: decreased breath sounds (left). Absent: normal lung sounds bilaterally, respiratory distress, wheezes, rales, rhonchi, stridor Cardiovascular Exam: Present: regular rate, normal rhythm, normal heart sounds. Absent: systolic murmur, diastolic murmur, rubs, gallop, clicks GI/Abdominal exam: Present: soft, normal bowel sounds. Absent: distended, tenderness, guarding, rebound, rigid Back exam: Absent: CVA tenderness (R), CVA tenderness (L) Course Vital Signs 09/10/23 11:50 Temperature 98.5 F Pulse Rate 90 Respiratory 22 Rate Blood Pressure 113/64 O2 Sat by Pulse 95 Oximetry Medical Decision Making - Medical Decision Making Was pt. sent in by a medical professional or institution (, PA, TRAY SERVER, urgent care, hospital, or residential...) When possible be specific @ -No Did you speak to anyone other than the patient for history (EMS, parent, family, police, friend...)? What history was obtained from this source @ -No Did you review nursing and triage notes (agree or disagree)? Why? @ -I reviewed and agree with nursing and triage notes Were old charts reviewed (outside hosp., previous admission, EMS record, old EKG, old radiological studies, urgent care reports/EKG's, residential records)? Report findings @ -Reviewed CT angio from 09/08, prior chest x-ray of 09/07 and prior CBC and comp Differential Diagnosis (chest pain, altered mental status, abdominal pain women, abdominal pain men, vaginal bleeding, weakness, fever, dyspnea, syncope, headache, dizziness, GI bleed, back pain, seizure, CVA, palpatations, mental health, musculoskeletal)? @ -Differential Dyspnea: Coronary syndrome, arrhythmia, tamponade, asthma, COPD, pulmonary embolism, pneumonia, pneumothorax, pulmonary effusion, anaphylaxis, diabetic ketoacidosis, flailed chest, pulmonary contusion, diaphragmatic rupture, anemia, neuromuscular, this is not meant to be an all-inclusive list. EKG interpreted by me (3pts min.). @ -As above X-rays interpreted by me (1pt min.). @ -[Chest ray shows pneumonia, pleural effusion increasing compared to prior CT interpreted by me (1pt min.). @ -None done U/S interpreted by me (1pt. min.). @ -None done What testing was considered but not performed or refused? (CT, X-rays, U/S, labs)? Why? @ -None What meds were considered but not given or refused? Why? @ -None Did you discuss the management of the patient with other professionals (professionals i.e. , PA, TRAY SERVER, lab, RT, psych nurse, social group worker, certified first assistant, teacher, agricultural extension officer, clinical case manager)? Give summary @ -Dr. Maurer for admission for pneumonia, pleural effusion worsening on antibiotics requiring pulmonary and ID evaluation Was smoking cessation discussed for >3mins.? @ -No Was critical care preformed (if so, how long)? @ -No Were there social determinants of health that impacted care today? How? (Homelessness, low income, unemployed, alcoholism, drug addiction, transportation, low edu. Level, literacy, decrease access to med. care, detention, rehab)? @ -No Was there de-escalation of care discussed even if they declined (Discuss DNR or withdrawal of care, Hospice)? DNR status @ -No What co-morbidities impacted this encounter? (DM, HTN, Smoking, COPD, CAD, Cancer, CVA, ARF, Chemo, Hep., AIDS, mental health diagnosis, sleep apnea, mo rbid obesity)? @ -None Was patient admitted / discharged? Hospital course, mention meds given and ro lorraine, prescriptions, significant lab abnormalities, going to OR and other pertinent info. @ -Admitted patient found to have worsening pneumonia, pleural effusion was started on Rocephin, vancomycin for concerns for pneumonia, will have ID and pulmonary evaluation Undiagnosed new problem with uncertain prognosis? @ -No Drug Therapy requiring intensive monitoring for toxicity (Heparin, Nitro, Insulin, Cardizem)? @ -No Were any procedures done? @ -No Diagnosis/symptom? @ -Pneumonia, Pleural effusion Acute, or Chronic, or Acute on Chronic? @ -Acute Uncomplicated (without systemic symptoms) or Complicated (systemic symptoms)? @ -Complicated Side effects of treatment? @ -No Exacerbation, Progression, or Severe Exacerbation? @ -No Poses a threat to life or bodily function? How? (Chest pain, [place], [place], pneumonia, PE, COPD, DKA, ARF, appy, cholecystitis, CVA, Diverticulitis, Homicidal, Suicidal, threat to staff... and all critical care pts) @ -Yes pneumonia, possible respiratory failure - Lab Data Result diagrams: 09/10/23 12:46 09/10/23 12:46 Lab Results 09/10/23 09/10/23 09/10/23 Range/Units 12:46 12:46 12:46 WBC 20.7 H (3.8-10.6) k/uL RBC 4.76 (4.30-5.90) m/uL Hgb 14.8 (13.0-17.5) gm/dL Hct 43.7 (39.0-53.0) % MCV 91.9 (80.0-100.0) fL MCH 31.1 (25.0-35.0) pg MCHC 33.8 (31.0-37.0) g/dL RDW 11.5 (11.5-15.5) % Plt Count 364 (150-450) k/uL MPV 7.0 Neutrophils % 88 % Lymphocytes % 3 % Monocytes % 7 % Eosinophils % 1 % Basophils % 0 % Neutrophils # 18.3 H (1.3-7.7) k/uL Lymphocytes # 0.6 L (1.0-4.8) k/uL Monocytes # 1.5 H (0-1.0) k/uL Eosinophils # 0.2 (0-0.7) k/uL Basophils # 0.0 (0-0.2) k/uL PT 11.3 (10.0-12.5) sec INR 1.0 (<1.2) APTT 27.6 (22.0-30.0) sec Sodium 135 L (137-145) mmol/L Potassium 4.5 (3.5-5.1) mmol/L Chloride 104 (98-107) mmol/L Carbon Dioxide 21 L (22-30) mmol/L Anion Gap 10 mmol/L BUN 11 (9-20) mg/dL Creatinine 0.68 (0.66-1.25) mg/dL Est GFR (CKD-EPI)AfAm >90 (>60 ml/min/1.73 sqM) Est GFR (CKD-EPI)NonAf >90 (>60 ml/min/1.73 sqM) Glucose 113 H (74-99) mg/dL Plasma Lactic Acid Francois (0.7-2.0) mmol/L Calcium 9.2 (8.4-10.2) mg/dL Magnesium 1.7 (1.6-2.3) mg/dL Total Bilirubin 1.3 (0.2-1.3) mg/dL AST 58 (17-59) U/L ALT 49 (4-49) U/L Alkaline Phosphatase 84 (38-126) U/L Total Protein 7.1 (6.3-8.2) g/dL Albumin 4.2 (3.5-5.0) g/dL 09/10/23 Range/Units 12:46 WBC (3.8-10.6) k/uL RBC (4.30-5.90) m/uL Hgb (13.0-17.5) gm/dL Hct (39.0-53.0) % MCV (80.0-100.0) fL MCH (25.0-35.0) pg MCHC (31.0-37.0) g/dL RDW (11.5-15.5) % Plt Count (150-450) k/uL MPV Neutrophils % % Lymphocytes % % Monocytes % % Eosinophils % % Basophils % % Neutrophils # (1.3-7.7) k/uL Lymphocytes # (1.0-4.8) k/uL Monocytes # (0-1.0) k/uL Eosinophils # (0-0.7) k/uL Basophils # (0-0.2) k/uL PT (10.0-12.5) sec INR (<1.2) APTT (22.0-30.0) sec Sodium (137-145) mmol/L Potassium (3.5-5.1) mmol/L Chloride (98-107) mmol/L Carbon Dioxide (22-30) mmol/L Anion Gap mmol/L BUN (9-20) mg/dL Creatinine (0.66-1.25) mg/dL Est GFR (CKD-EPI)AfAm (>60 ml/min/1.73 sqM) Est GFR (CKD-EPI)NonAf (>60 ml/min/1.73 sqM) Glucose (74-99) mg/dL Plasma Lactic Acid Francois 1.0 (0.7-2.0) mmol/L Calcium (8.4-10.2) mg/dL Magnesium (1.6-2.3) mg/dL Total Bilirubin (0.2-1.3) mg/dL AST (17-59) U/L ALT (4-49) U/L Alkaline Phosphatase (38-126) U/L Total Protein (6.3-8.2) g/dL Albumin (3.5-5.0) g/dL Disposition Clinical Impression: Pneumonia, Pleural effusion Disposition: ADMITTED IP TO THIS HOSP Condition: Fair Referrals: Curt Maurer MD [Primary Care Provider] - 1-2 days Time of Disposition: 13:50
[2023-09-10 13:00] LABS: Basophils % (A) 0 %; Eosinophils # (A) 0.2 k/uL (0-0.7); Eosinophils % (A) 1 %; HCT 43.7 % (39.0-53.0); HGB 14.8 gm/dL (13.0-17.5); Lymphocytes # (A) 0.6 k/uL (1.0-4.8); Lymphocytes % (A) 3 %; MCH 31.1 pg (25.0-35.0); MCHC 33.8 g/dL (31.0-37.0); MCV 91.9 fL (80.0-100.0); Monocytes # (A) 1.5 k/uL (0-1.0); Monocytes % (A) 7 %; Neutrophils # (A) 18.3 k/uL (1.3-7.7); Neutrophils % (A) 88 %; Platelet Count 364 k/uL (150-450); RBC 4.76 m/uL (4.30-5.90); RDW 11.5 % (11.5-15.5); WBC 20.7 k/uL (3.8-10.6)
[2023-09-10 13:09] LABS: ALT 49 U/L (4-49); African American GFR (CKD) >90 (>60 ml/min/1.73 sqM); Albumin 4.2 g/dL (3.5-5.0); Anion Gap 10 mmol/L; Blood Urea Nitrogen 11 mg/dL (9-20); Calcium 9.2 mg/dL (8.4-10.2); Carbon Dioxide 21 mmol/L (22-30); Chloride 104 mmol/L (98-107); Glucose 113 mg/dL (74-99); Non-African American GFR(CKD) >90 (>60 ml/min/1.73 sqM); Partial Thromboplastin Time 27.6 sec (22.0-30.0); Prothrombin Time 11.3 sec (10.0-12.5); Sodium 135 mmol/L (137-145); Total Bilirubin 1.3 mg/dL (0.2-1.3); Total Protein 7.1 g/dL (6.3-8.2)
[2023-09-10 13:11] LABS: AST 58 U/L (17-59); Alkaline Phosphatase 84 U/L (38-126); Magnesium 1.7 mg/dL (1.6-2.3); Potassium 4.5 mmol/L (3.5-5.1)
--- NOTE | 2023-09-10 13:29 | XR ---
EXAMINATION TYPE: XR chest 2V DATE OF EXAM: 09/10/2023 COMPARISON: 09/09/2023 INDICATION: Difficulty breathing and short of breath TECHNIQUE: Frontal and lateral views of the chest are obtained. FINDINGS: The heart size is normal. The pulmonary vasculature is normal. Patchy infiltrates in the left lower lobe. Small left pleural effusion is present. Findings are worse kira from comparison. IMPRESSION: 1. Worsening left lower lobe infiltrate. Small left pleural effusion is present. Continued follow-up is recommended
[2023-09-10] MEDS ORDERED: VANCOMYCIN IV PER PHARMACY 1 EACH MISC MISCELLANE PRN (13:32)
[2023-09-10] MEDS ORDERED: PNEUMONIA PROTOCOL UTILIZED 1 EACH MISC PO PRN (13:43)
[2023-09-10 14:31] LABS: Amphetamine Screen,Urine Not Detected (NotDetected); Barbiturate Screen,Urine Not Detected (NotDetected); Benzodiazepines Screen,Urine Not Detected (NotDetected); Cocaine Screen,Urine Not Detected (NotDetected); Methadone Screen, Urine Not Detected (NotDetected); Opiate Screen,Urine Not Detected (NotDetected); Oxycodone Screen, Urine Not Detected (NotDetected); Phencyclidine Screen,Urine Not Detected (NotDetected); Tricyclic Antidepressant,Urine Not Detected (NotDetected); Urn Cannabinoid Scrn Detected (NotDetected)
[2023-09-10] MEDS: VANCOMYCIN 1,250 MG in SODIUM CHLORIDE 0.9% 250 ML IVPB ONE (14:39)
[2023-09-10] MEDS: ACETAMINOPHEN TAB 500 MG TAB PO PRN (14:45)
--- NOTE | 2023-09-10 16:31 | P.CNPUL ---
History of Present Illness Consult date: 09/10/23 Requesting physician: Curt Maurer Reason for consult: dyspnea, chest pain, pleural effusion, abnormal CXR/CT Chief complaint: Left-sided chest pain, shortness of breath History of present illness: This is a pleasant 23-year-old male patient with no significant medical history. He does smoke tobacco as well as smoking marijuana. He presented here to the emergency room yesterday with complaints of left-sided chest discomfort. Chest x-ray revealed a left-sided infiltrate/effusion. CT scan of the chest revealed a moderate volume left pleural effusion. Loculated pleural fluid in the left l sam fissure. Nodular consolidation of the lingula. Triangular shaped pleural- based consolidation in the left lower lobe. Consolidation/atelectasis in the left lower lobe posterior adjacent to the pleural effusion. He was treated with Toradol and antibiotics and discharged home. He presented back to the emergency room today with worsening left-sided chest discomfort. Chest x-ray does reveal worsening left lower lobe infiltrate. Small left pleural effusion. He did have a Tmax of 99.7. White count of 20.7. Hemoglobin 14.8. Platelets 364. Sodium 135. Potassium 4.5. Bicarb 21. BUN 11. Creatinine 0.68. Lactic acid 1.0. Urine drug screen positive for marijuana. He is seen today in consultation in the emergency room. He is currently sitting up on a stretcher. Awake and alert in no acute distress. He does have significant left-sided chest discomfort with minimal exertion and repositioning. He has pain on deep inhalation. He denies any significant cough. No phlegm. No hemoptysis. He denies any sick contacts. No recent travel. Review of Systems REVIEW OF SYSTEMS: CONSTITUTIONAL: Denies any recent significant weight loss or weight gain. EYES: Denies change in vision. EARS, NOSE, MOUTH, THROAT: Denies headaches, denies sore throat. CARDIOVASCULAR: Positive for left-sided chest pain, no palpitations or syncopal episodes. RESPIRATORY: Positive for shortness of breath, no cough, congestion or hemoptysis. GASTROINTESTINAL: Denies change in appetite, denies abdominal pain GENITOURINARY: Denies hematuria, denies infections. MUSKULOSKELETAL: Denies pain, denies swelling. INTEGUMENTARY: Denies rash, denies eczema. NEUROLOGICAL: Denies recent memory loss, no recent seizure activity. PSYCHIATRIC: Denies anxiety, denies depression. HEMATOLOGIC/LYMPHATIC: Denies anemia, denies enlarged lymph nodes. Past Medical History Past Medical History: No Reported History, Seizure Disorder History of Any Multi-Drug Resistant Organisms: None Reported Past Surgical History: No Surgical Hx Reported Past Psychological History: ADD/ADHD Smoking Status: Current every day smoker, Vaper Past Alcohol Use History: None Reported Past Drug Use History: None Reported Medications and Allergies Home Medications Medication Instructions Recorded Confirmed Type Azithromycin [Zithromax] See Taper PO DIRECTED 09/10/23 09/10/23 History traMADol HCl [Ultram] 50 mg PO Q6H PRN #12 tab 09/10/23 09/10/23 Rx Allergies Allergy/AdvReac Type Severity Reaction Status Date / Time gluten AdvReac Unknown Verified 09/10/23 11:56 lactose AdvReac Diarrhea Verified 09/10/23 11:56 red dye AdvReac inflammatio Verified 09/10/23 11:56 n Physical Exam Vitals: Vital Signs Temp Pulse Resp BP Pulse Ox 09/10/23 15:43 68 16 124/71 95 09/10/23 14:45 99.7 F H 09/10/23 14:05 99.5 F 82 17 113/64 96 09/10/23 11:50 98.5 F 90 22 113/64 95 Intake and Output 09/10/23 09/10/23 09/10/23 06:59 14:59 22:59 Other: Weight 63.503 kg GENERAL EXAM: Alert, pleasant 23-year-old male, on room air, fairly comfortable in no apparent distress. HEAD: Normocephalic. EYES: Normal reaction of pupils, equal size. NOSE: Clear with pink turbinates. THROAT: No erythema or exudates. NECK: No masses, no JVD. CHEST: No chest wall deformity. LUNGS: Equal air entry with crackles, rhonchi in the left lung base diminished. CVS: S1 and S2 normal with no audible murmur, regular rhythm. ABDOMEN: No hepatosplenomegaly, normal bowel sounds, no guarding or rigidity. SPINE: No scoliosis or deformity SKIN: No rashes CENTRAL NERVOUS SYSTEM: No focal deficits, tone is normal in all 4 extremities. EXTREMITIES: There is no peripheral edema. No clubbing, no cyanosis. Peripheral pulses are intact. Results - Laboratory Findings CBC and BMP: 09/10/23 12:46 09/10/23 12:46 PT/INR, D-dimer PT 11.3 sec (10.0-12.5) 09/10/23 12:46 INR 1.0 (<1.2) 09/10/23 12:46 Abnormal lab findings: Abnormal Labs 09/10/23 09/10/23 09/10/23 12:46 12:46 14:05 WBC 20.7 H Neutrophils # 18.3 H Lymphocytes # 0.6 L Monocytes # 1.5 H Sodium 135 L Carbon Dioxide 21 L Glucose 113 H U Marijuana (THC) Screen Detected H - Diagnostic Findings Chest x-ray: image reviewed CT scan - chest: image reviewed Assessment and Plan Assessment: Left-sided chest discomfort/pleurisy secondary to a left lower lobe infiltrate, effusion. Suspect community-acquired pneumonia Leukocytosis secondary to above Febrile illness secondary to above Urine drug screen positive for marijuana Chronic tobacco dependence Plan: The patient was seen and evaluated CT scan of the chest, chest x-rays, labs and medications reviewed Continue vancomycin and ceftriaxone Procalcitonin pending, C-reactive protein pending Add a Medrol Dosepak Ultrasound of the left chest May require thoracentesis if significant fluid Obtain a sputum culture if possible Add an incentive spirometer We will continue to follow and make further recommendations based on his clinical status I have personally seen and examined the patient, performed the documentation and the assessment and plan as written. Number of minutes spent on the visit: 20.
[2023-09-10] MEDS: methylPREDNISolone 4 MG TAB TAPER PO SCH (17:00)
--- NOTE | 2023-09-10 17:26 | US ---
EXAMINATION TYPE: US chest DATE OF EXAM: 09/10/2023 COMPARISON: CT CLINICAL INDICATION: Male, 23 years old with history of Left pleural effusion; left effusion TECHNIQUE: Targeted ultrasound of the posterior lower left hemithorax EXAM MEASUREMENTS: Left Pleural Effusion pocket size: 2.0 cm Left skin surface to fluid distance: 2.3 cm left chest scanned. fluid present but there is lung tissue close to the chest wall. Not marked for th oracentesis. Pulmonologists are able to review the images in the patient?s EMR. IMPRESSIONS: Small left pleural effusion.
[2023-09-10] MEDS: VANCOMYCIN 1,250 MG in SODIUM CHLORIDE 0.9% 250 ML IVPB SCH (23:38)
[2023-09-11] MEDS: IBUPROFEN 400 MG TAB PO STA (03:53)
--- NOTE | 2023-09-11 07:32 | P.CONS ---
History of Present Illness - Reason for Consult Consult date: 09/10/23 Pneumonia Requesting physician: Spencer Quiroga - Chief Complaint Left-sided chest pain shortness of breath x few days - History of Present Illness Patient is a 23-year-old male with a past medical history significant for seizure disorder ADHD current everyday smoker patient was brought into the hospital for evaluation of increasing shortness of breath patient symptom has been getting worse for about a week and also complaining of left-sided chest pain especially with taking a deep breath describing the pain to be mild to moderate intensity without limitation he did have a cough moderate intensity but not bring up any sputum denies having any significant URI symptoms no nausea no vomiting no abdominal pain or any diarrhea patient also have night sweats with the symptoms the patient has been evaluated on presentation to the hospital he did have a low-grade fever of 99.7 F patient was nontachycardic hypotensive or hypoxic and no need for supplemental oxygen he did have a white count of 20,000 with a left shift creatinine 0.68 liver enzymes are normal urine to screen is positive for marijuana influenza RSV COVID testing negative patient did have a chest x-ray left lower lobe infiltrate small left effusion subsequently did have a chest ultrasound left full effusion pocket size is 2 cm as there was lung tissue close to the chest wall thoracocentesis was not done patient has been started on ceftriaxone and vancomycin infectious disease has been consulted for further management of antibiotic therapy patient also have a CT angiogram of the chest on the previous ER visit we did shows moderate left effusion loculated pleural fluid in the left lung fissure noted consolidation of the lingula Review of Systems Positive point and negatives has been mentioned in the HPI, complete review of systems was performed and all other systems are negative Past Medical History Past Medical History: No Reported History, Seizure Disorder History of Any Multi-Drug Resistant Organisms: None Reported Past Surgical History: No Surgical Hx Reported Past Psychological History: ADD/ADHD Smoking Status: Current every day smoker, Vaper Past Alcohol Use History: None Reported Past Drug Use History: None Reported Medications and Allergies Home Medications Medication Instructions Recorded Confirmed Type cefUROXime axetiL [Ceftin] 500 mg PO BID 7 Days #14 tab 09/13/23 Rx methylPREDNISolone Dose Pack 16 mg PO DAILY 5 Days #1 pack 09/13/23 Rx [Medrol Dose Pack] Allergies Allergy/AdvReac Type Severity Reaction Status Date / Time gluten AdvReac Unknown Verified 09/10/23 11:56 lactose AdvReac Diarrhea Verified 09/10/23 11:56 red dye AdvReac inflammatio Verified 09/10/23 11:56 n Physical Exam Vitals: Vital Signs Temp Pulse Resp BP Pulse Ox 09/10/23 15:43 68 16 124/71 95 09/10/23 14:45 99.7 F H 09/10/23 14:05 99.5 F 82 17 113/64 96 09/10/23 11:50 98.5 F 90 22 113/64 95 Intake and Output 09/10/23 09/10/23 09/10/23 06:59 14:59 22:59 Other: Weight 63.503 kg GENERAL DESCRIPTION: Young male lying in bed, no distress. No tachypnea or accessory muscle of respiration use. HEENT: Shows Pallor , no scleral icterus. Oral mucous membrane is dry. No pharyngeal erythema or thrush NECK: Trachea central, no thyromegaly. LUNGS: Unlabored breathing. Decreased breath sounds left base HEART: S1, S2, regular rate and rhythm. No loud murmur ABDOMEN: Soft, no tenderness , guarding or rigidity, no organomegaly EXTREMITIES: No edema of feet. SKIN: No rash, no masses palpable. NEUROLOGICAL: The patient is awake, alert, oriented x3, mood and affect normal. Results CBC & Chem 7: 09/13/23 05:24 09/13/23 05:24 Labs: Abnormal Lab Results - Last 24 Hours (Table) 09/10/23 09/10/23 09/10/23 Range/Units 12:46 12:46 14:05 WBC 20.7 H (3.8-10.6) k/uL Neutrophils # 18.3 H (1.3-7.7) k/uL Lymphocytes # 0.6 L (1.0-4.8) k/uL Monocytes # 1.5 H (0-1.0) k/uL Sodium 135 L (137-145) mmol/L Carbon Dioxide 21 L (22-30) mmol/L Glucose 113 H (74-99) mg/dL U Marijuana (THC) Screen Detected H (NotDetected) Assessment and Plan (1) Pleural effusion Status: Acute Code(s): J90 - PLEURAL EFFUSION, NOT ELSEWHERE CLASSIFIED SNOMED Code(s): 25685349 (2) Pneumonia Status: Acute Code(s): J18.9 - PNEUMONIA, UNSPECIFIED ORGANISM SNOMED Code(s): 116047295 Plan: 1patient presented to hospital with increasing shortness of breath cough left- sided chest pain and this patient has been diagnosed with a left-sided pneumonia with a parapneumonic effusion with concern for possible loculated/empyema not entirely excluded, we will need to call for the community-acquired pathogen as well as resistant gram-positive 2-try to obtain a sputum for Gram stain culture check a CRP and a procalcitonin level 3-patient will be treated with Rocephin and vancomycin pending workup completion We will follow on clinical condition and cultures to further adjust medication if needed Thank you for this consultation we will follow the patient along with you Dictation was produced using [email or web address] dictation software. please excuse any grammatical, word or spelling errors. Time with Patient: Greater than 30
[2023-09-11 08:03] LABS: African American GFR (CKD) >90 (>60 ml/min/1.73 sqM); Non-African American GFR(CKD) >90 (>60 ml/min/1.73 sqM)
[2023-09-11 08:51] LABS: Basophils % (A) 0 %; Eosinophils % (A) 0 %; HCT 45.8 % (39.0-53.0); HGB 14.9 gm/dL (13.0-17.5); Lymphocytes % (A) 6 %; MCH 30.6 pg (25.0-35.0); MCHC 32.5 g/dL (31.0-37.0); MCV 94.2 fL (80.0-100.0); Mean Platelet Volume 7.2; Monocytes # (A) 1.6 k/uL (0-1.0); Monocytes % (A) 8 %; Neutrophils # (A) 15.9 k/uL (1.3-7.7); Neutrophils % (A) 85 %; Platelet Count 406 k/uL (150-450); RBC 4.86 m/uL (4.30-5.90); RDW 11.6 % (11.5-15.5); WBC 18.8 k/uL (3.8-10.6)
--- NOTE | 2023-09-11 09:05 | P.HPIM ---
History of Present Illness H&P Date: 09/11/23 Chief Complaint: pneumonia This is a 23 year old male who presented to the emergency room with complaints of shortness of breath. Patient had recently been in the ER twice for the same symptoms. Patient had apparently been on outpatient antibiotics. Patient reports recent night sweats, denies any nasal congestion. Chest XR on admission showed left sided inflitrate/effusion. Chest ultrasound showed small left pleural effusion which per pulmonary is not large enough for a thoracentesis. Infectious disease is also consulted and patient remains on rocephin and vancomycin. He is a current smoker and also was positive for marijuana on admission. Patient is seen this morning sitting up in bed, he reports he is starting to feel better. He is tolerating diet. Vitals are stable. Review of Systems Constitutional: Reports sweats, Denies chills, Denies fever Cardiovascular: Denies chest pain, Denies dyspnea on exertion Respiratory: Reports dyspnea, Denies congestion Musculoskeletal: Denies arm numbness/tingling, Denies leg numbness/tingling Neurological: Denies headaches, Denies weakness Past Medical History Past Medical History: No Reported History, Seizure Disorder History of Any Multi-Drug Resistant Organisms: None Reported Past Surgical History: No Surgical Hx Reported Past Anesthesia/Blood Transfusion Reactions: No Reported Reaction Past Psychological History: ADD/ADHD Smoking Status: Current every day smoker, Vaper Past Alcohol Use History: None Reported Past Drug Use History: None Reported Medications and Allergies Home Medications Medication Instructions Recorded Confirmed Type Azithromycin [Zithromax] See Taper PO DIRECTED 09/10/23 09/10/23 History traMADol HCl [Ultram] 50 mg PO Q6H PRN #12 tab 09/10/23 09/10/23 Rx Allergies Allergy/AdvReac Type Severity Reaction Status Date / Time gluten AdvReac Unknown Verified 09/10/23 11:56 lactose AdvReac Diarrhea Verified 09/10/23 11:56 red dye AdvReac inflammatio Verified 09/10/23 11:56 n Physical Exam Vitals: Vital Signs Temp Pulse Pulse Resp BP BP Pulse Ox 09/11/23 07:24 97.9 F 70 16 105/63 97 09/11/23 06:41 98.6 F 09/11/23 00:44 98.9 F 93 16 108/44 97 09/10/23 22:02 99.5 F 91 17 100/48 95 09/10/23 20:48 80 16 98 09/10/23 19:22 98.2 F 81 17 135/72 97 09/10/23 18:25 98.9 F 79 16 118/68 96 09/10/23 17:03 98.5 F 75 16 114/61 95 09/10/23 16:18 98.9 F 82 16 146/82 96 09/10/23 15:43 68 16 124/71 95 09/10/23 14:45 99.7 F H 09/10/23 14:05 99.5 F 82 17 113/64 96 09/10/23 13:30 18 09/10/23 11:50 98.5 F 90 22 113/64 95 Intake and Output 09/10/23 09/11/23 09/11/23 22:59 06:59 14:59 Other: Voiding Method Toilet # Voids 3 Weight 63.503 kg - Constitutional General appearance: cooperative, no acute distress - EENT Eyes: PERRLA - Neck Neck: no lymphadenopathy, normal ROM, no rigidity - Respiratory Respiratory: bilateral: rales - Cardiovascular Rhythm: regular Heart sounds: normal: S1, S2 - Gastrointestinal General gastrointestinal: soft, no tenderness - Integumentary Integumentary: normal, normal turgor - Psychiatric Psychiatric: A&O x's 3, appropriate affect, intact judgment & insight Results CBC & Chem 7: 09/10/23 12:46 09/11/23 07:02 Labs: Abnormal Lab Results - Last 24 Hours (Table) 09/10/23 09/10/23 09/10/23 Range/Units 12:46 12:46 12:46 WBC 20.7 H (3.8-10.6) k/uL Neutrophils # 18.3 H (1.3-7.7) k/uL Lymphocytes # 0.6 L (1.0-4.8) k/uL Monocytes # 1.5 H (0-1.0) k/uL Sodium 135 L (137-145) mmol/L Carbon Dioxide 21 L (22-30) mmol/L Glucose 113 H (74-99) mg/dL C-Reactive Protein 10.10 H (0.00-0.80) mg/dL Procalcitonin (0.02-0.09) ng/mL U Marijuana (THC) Screen (NotDetected) 09/10/23 09/10/23 Range/Units 12:46 14:05 WBC (3.8-10.6) k/uL Neutrophils # (1.3-7.7) k/uL Lymphocytes # (1.0-4.8) k/uL Monocytes # (0-1.0) k/uL Sodium (137-145) mmol/L Carbon Dioxide (22-30) mmol/L Glucose (74-99) mg/dL C-Reactive Protein (0.00-0.80) mg/dL Procalcitonin 0.32 H (0.02-0.09) ng/mL U Marijuana (THC) Screen Detected H (NotDetected) Thrombosis Risk Factor Assmnt - Choose All That Apply Any of the Below Risk Factors Present?: No Other Risk Factors: No Other congenital or acquired thrombophilia - If yes, enter type in comment: No Thrombosis Risk Factor Assessment Level: Very Low Risk Assessment and Plan (1) Pneumonia Current Visit: Yes Status: Acute Code(s): J18.9 - PNEUMONIA, UNSPECIFIED ORGANISM SNOMED Code(s): 631736964 (2) Currently smokes tobacco Current Visit: Yes Status: Acute Code(s): F17.200 - NICOTINE DEPENDENCE, UNSPECIFIED, UNCOMPLICATED SNOMED Code(s): 20240081 Plan: Continue IV antibiotics per infectious disease. Appreciate multiple consultants. Check CBC and CMP in the morning Patient seen and evaluated by nurse practitioner, physician in agreement with plan.
--- NOTE | 2023-09-11 12:11 | XR ---
EXAMINATION TYPE: XR chest 2V DATE OF EXAM: 09/11/2023 COMPARISON: 09/10/2023 INDICATION: Pneumonia TECHNIQUE: Frontal and lateral views of the chest are obtained. FINDINGS: The heart size is normal. The pulmonary vasculature is normal. There is a small left pleural effusion. Some mild adjacent atelectasis may be present. Findings are s imilar to comparison.. IMPRESSION: 1. Small stable left pleural effusion
--- NOTE | 2023-09-11 12:25 | P.PN ---
Subjective Progress Note Date: 09/11/23 This is a pleasant 23-year-old male patient with no significant medical history. He does smoke tobacco as well as smoking marijuana. He presented here to the emergency room yesterday with complaints of left-sided chest discomfort. Chest x-ray revealed a left-sided infiltrate/effusion. CT scan of the chest revealed a moderate volume left pleural effusion. Loculated pleural fluid in the left lung fissure. Nodular consolidation of the lingula. Triangular shaped pleural- based consolidation in the left lower lobe. Consolidation/atelectasis in the left lower lobe posterior adjacent to the pleural effusion. He was treated with Toradol and antibiotics and discharged home. He presented back to the emergency room today with worsening left-sided chest discomfort. Chest x-ray does reveal worsening left lower lobe infiltrate. Small left pleural effusion. He did have a Tmax of 99.7. White count of 20.7. Hemoglobin 14.8. Platelets 364. Sodium 135. Potassium 4.5. Bicarb 21. BUN 11. Creatinine 0.68. Lactic acid 1.0. Urine drug screen positive for marijuana. He is seen today in consultation in the emergency room. He is currently sitting up on a stretcher. Awake and alert in no acute distress. He does have significant left-sided chest discomfort with minimal exertion and repositioning. He has pain on deep inhalation. He denies any significant cough. No phlegm. No hemoptysis. He denies any sick contacts. No recent travel. The patient is seen today September 11, 2023 in follow-up on the regular medical floor. He is currently sitting up in bed. Awake and alert in no acute distress. Breathing quite a bit easier today compared to yesterday. Less pleuritic chest pain as well. Continues to maintain good O2 saturations in the 90s on room air. He has been afebrile. Hemodynamically stable. ReSound of the left chest revealed only a 2.0 cm pocket. No plans for thoracentesis. Today's chest x-ray reveals a small stable left pleural effusion with adjacent atelectasis. White count 18.8. Hemoglobin 14.9. Platelets 406. Creatinine 0.73. Influenza screen negative. RSV negative. COVID-19 negative. Urine Legionella antigen negative. Procalcitonin was 0.32. He is continued on vancomycin and ceftriaxone. Objective - Vital Signs Vital signs: Vital Signs Temp 97.9 F 06/18/24 07:24 Pulse 70 09/11/23 07:24 Resp 16 09/11/23 07:24 BP 105/63 09/11/23 07:24 Pulse Ox 97 09/11/23 07:24 FiO2 Intake & Output 09/10/23 09/11/23 09/11/23 18:59 06:59 18:59 Weight 63.503 kg 63.503 kg Other: Voiding Method Toilet Toilet # Voids 3 - Exam GENERAL EXAM: Alert, 23-year-old male, on room air, comfortable in no apparent distress. HEAD: Normocephalic. EYES: Normal reaction of pupils, equal size. NOSE: Clear with pink turbinates. THROAT: No erythema or exudates. NECK: No masses, no JVD. CHEST: No chest wall deformity. LUNGS: Equal air entry with crackles, rhonchi in the left lung base diminished. CVS: S1 and S2 normal with no audible murmur, regular rhythm. ABDOMEN: No hepatosplenomegaly, normal bowel sounds, no guarding or rigidity. SPINE: No scoliosis or deformity SKIN: No rashes CENTRAL NERVOUS SYSTEM: No focal deficits, tone is normal in all 4 extremities. EXTREMITIES: There is no peripheral edema. No clubbing, no cyanosis. Peripheral pulses are intact. - Labs CBC & Chem 7: 09/11/23 07:02 09/11/23 07:02 Labs: Abnormal Lab Results - Last 24 Hours (Table) 09/10/23 09/10/23 09/10/23 Range/Units 12:46 12:46 12:46 WBC 20.7 H (3.8-10.6) k/uL Neutrophils # 18.3 H (1.3-7.7) k/uL Lymphocytes # 0.6 L (1.0-4.8) k/uL Monocytes # 1.5 H (0-1.0) k/uL Sodium 135 L (137-145) mmol/L Carbon Dioxide 21 L (22-30) mmol/L Glucose 113 H (74-99) mg/dL C-Reactive Protein 10.10 H (0.00-0.80) mg/dL Procalcitonin (0.02-0.09) ng/mL U Marijuana (THC) Screen (NotDetected) 09/10/23 09/10/23 09/11/23 Range/Units 12:46 14:05 07:02 WBC 18.8 H (3.8-10.6) k/uL Neutrophils # 15.9 H (1.3-7.7) k/uL Lymphocytes # (1.0-4.8) k/uL Monocytes # 1.6 H (0-1.0) k/uL Sodium (137-145) mmol/L Carbon Dioxide (22-30) mmol/L Glucose (74-99) mg/dL C-Reactive Protein (0.00-0.80) mg/dL Procalcitonin 0.32 H (0.02-0.09) ng/mL U Marijuana (THC) Screen Detected H (NotDetected) Assessment and Plan Assessment: Left-sided chest discomfort/pleurisy secondary to a left lower lobe infiltrate, effusion. Suspect community-acquired pneumonia. Ultrasound of the left chest did not reveal a significant effusion for thoracentesis Leukocytosis secondary to above Febrile illness secondary to above Urine drug screen positive for marijuana Chronic tobacco dependence Plan: The patient was seen and evaluated Chest x-ray, labs and medications reviewed Ultrasound of the chest reviewed No significant fluid. No plans for thoracentesis Continue vancomycin and ceftriaxone Infectious disease is on the case Continue Medrol Dosepak Pleuritic pain is improved Continue to work with the incentive spirometer We will continue to follow I have personally seen and examined the patient, performed the documentation and the assessment and plan as written. Number of minutes spent on the visit: 10.
[2023-09-11] MEDS: VANCOMYCIN TROUGH DUE 1 EACH MISC MISCELLANE ONE (22:36)
[2023-09-12 08:41] LABS: BUN/Creat Ratio 9.14 Ratio (12.00-20.00); Blood Urea Nitrogen 6.4 mg/dL (9.0-27.0); Glucose 100 mg/dL (70-110)
[2023-09-12 08:42] LABS: ALT 53 U/L (10-49); AST 29 U/L (14-35); Albumin 3.6 g/dL (3.8-4.9); Albumin/Globulin Ratio 1.44 Ratio (1.60-3.17); Alkaline Phosphatase 85 U/L (41-126); Calcium 8.7 mg/dL (8.7-10.3); Carbon Dioxide 21.8 mmol/L (21.6-31.8); Chloride 106 mmol/L (96-109); Globulin 2.5 g/dL (1.6-3.3); Potassium 4.3 mmol/L (3.5-5.5); Sodium 142 mmol/L (135-145); Total Bilirubin 0.3 mg/dL (0.3-1.2); Total Protein 6.1 g/dL (6.2-8.2)
[2023-09-12 08:46] LABS: HCT 37.8 % (39.6-50.0); MCH 30.7 pg (27.0-32.0); MCHC 34.4 g/dL (32.0-37.0); MCV 89.4 FL (80.0-97.0); NRBC Per 100 WBC 0 X 10*3/uL (0.00-0.01); Platelet Count 360 X 10*3/uL (140-440); RBC 4.23 X 10*6/uL (4.40-5.60); RDW 11.6 % (11.5-14.5); WBC 14.34 X 10*3/uL (4.50-10.00)
--- NOTE | 2023-09-12 08:53 | P.PN ---
Subjective Progress Note Date: 09/12/23 Principal diagnosis: Pneumonia. Pleural effusion The patient is a 23-year-old white male who is admitted for left pleural effusion with pneumonia. He is significantly improved. Appreciate pulmonology and infectious disease consult. He states he is going through some legal issues related to the fact that his parents do not like relationship with his current friend and are seeking guardianship. He is going to have to do some type of family probate court hearing tomorrow. I do feel he is of sound mind. Objective - Vital Signs Vital signs: Vital Signs Temp 99.5 F 09/12/23 07:24 Pulse 94 09/12/23 07:24 Resp 16 09/12/23 07:24 BP 116/65 09/12/23 07:24 Pulse Ox 97 09/12/23 07:24 FiO2 Intake & Output 09/11/23 09/12/23 09/12/23 18:59 06:59 18:59 Intake Total 300 590 Output Total 700 Balance -400 590 Intake: Intake, IV Titration 300 Amount Vancomycin 1,250 mg In 250 Sodium Chloride 0.9% 250 ml @ 125 mls/hr IVPB Q8H [facility] Rx#:[id number] cefTRIAXone 2 gm In 50 Sodium Chloride 0.9% 50 ml @ 100 mls/hr IVPB Q24HR [facility] Rx#:[id number] Oral 590 Output: Urine 700 Other: Voiding Method Toilet Toilet # Voids 2 - Constitutional General appearance: Present: average body habitus, cooperative, no acute distr ess - EENT Eyes: Absent: abnormal pupil - Neck Neck: Absent: lymphadenopathy - Respiratory Respiratory: left: diminished - Cardiovascular Rhythm: regular Heart sounds: normal: S1, S2 Abnormal Heart Sounds: Absent: S3 Gallop - Gastrointestinal General gastrointestinal: Present: soft. Absent: tenderness - Integumentary Integumentary: Absent: cellulitis - Labs CBC & Chem 7: 09/12/23 05:31 09/12/23 05:31 Labs: Abnormal Lab Results - Last 24 Hours (Table) 09/11/23 09/12/23 09/12/23 Range/Units 07:02 05:31 05:31 WBC 18.8 H 14.34 H (3.8-10.6) k/uL RBC 4.23 L (4.40-5.60) X 10*6/uL Hct 37.8 L (39.6-50.0) % MPV 9.0 L (9.5-12.2) FL Neutrophils # 15.9 H (1.3-7.7) k/uL Monocytes # 1.6 H (0-1.0) k/uL Anion Gap 14.20 H (4.00-12.00) mmol/L BUN 6.4 L (9.0-27.0) mg/dL BUN/Creatinine Ratio 9.14 L (12.00-20.00) Ratio ALT 53 H (10-49) U/L Total Protein 6.1 L (6.2-8.2) g/dL Albumin 3.6 L (3.8-4.9) g/dL Albumin/Globulin Ratio 1.44 L (1.60-3.17) Ratio Microbiology - Last 24 Hours (Table) 09/10/23 12:46 Blood Culture - Preliminary Blood 09/10/23 12:40 Blood Culture - Preliminary Blood 09/10/23 13:49 Nasal Screen MRSA/MSSA - Final Nasal Swab Assessment and Plan (1) Pleural effusion Current Visit: Yes Status: Acute Code(s): J90 - PLEURAL EFFUSION, NOT ELSEWHERE CLASSIFIED SNOMED Code(s): 12627102 (2) Pneumonia Current Visit: Yes Status: Acute Code(s): J18.9 - PNEUMONIA, UNSPECIFIED ORGANISM SNOMED Code(s): 909625720 Plan: Check CBC and CMP in the a.m. Continue current regimen of antibiotics. Anticipate discharge in next 24-48 hours if his leukocytosis is resolved. Family stress. Time with Patient: Greater than 30
[2023-09-12 09:57] LABS: Basophils # (A) 0.02 X 10*3/uL (0.00-0.10); Basophils % (A) 0.1 %; Eosinophils % (A) 0.7 %; Lymphocytes # (A) 1.66 X 10*3/uL (0.90-5.00); Lymphocytes % (A) 11.6 %; Monocytes # (A) 1.56 X 10*3/uL (0.20-1.00); Monocytes % (A) 10.9 %; Neutrophils # (A) 10.92 X 10*3/uL (1.80-7.70); Neutrophils % (A) 76.1 %
[2023-09-12 09:58] LABS: RBC Morphology Normal (Normal)
--- NOTE | 2023-09-12 11:06 | P.PN ---
Subjective Progress Note Date: 09/12/23 This is a pleasant 23-year-old male patient with no significant medical history. He does smoke tobacco as well as smoking marijuana. He presented here to the emergency room yesterday with complaints of left-sided chest discomfort. Chest x-ray revealed a left-sided infiltrate/effusion. CT scan of the chest revealed a moderate volume left pleural effusion. Loculated pleural fluid in the left lung fissure. Nodular consolidation of the lingula. Triangular shaped pleural- based consolidation in the left lower lobe. Consolidation/atelectasis in the left lower lobe posterior adjacent to the pleural effusion. He was treated with Toradol and antibiotics and discharged home. He presented back to the emergency room today with worsening left-sided chest discomfort. Chest x-ray does reveal worsening left lower lobe infiltrate. Small left pleural effusion. He did have a Tmax of 99.7. White count of 20.7. Hemoglobin 14.8. Platelets 364. Sodium 135. Potassium 4.5. Bicarb 21. BUN 11. Creatinine 0.68. Lactic acid 1.0. Urine drug screen positive for marijuana. He is seen today in consultation in the emergency room. He is currently sitting up on a stretcher. Awake and alert in no acute distress. He does have significant left-sided chest discomfort with minimal exertion and repositioning. He has pain on deep inhalation. He denies any significant cough. No phlegm. No hemoptysis. He denies any sick contacts. No recent travel. The patient is seen today September 11, 2023 in follow-up on the regular medical floor. He is currently sitting up in bed. Awake and alert in no acute distress. Breathing quite a bit easier today compared to yesterday. Less pleuritic chest pain as well. Continues to maintain good O2 saturations in the 90s on room air. He has been afebrile. Hemodynamically stable. ReSound of the left chest revealed only a 2.0 cm pocket. No plans for thoracentesis. Today's chest x-ray reveals a small stable left pleural effusion with adjacent atelectasis. White count 18.8. Hemoglobin 14.9. Platelets 406. Creatinine 0.73. Influenza screen negative. RSV negative. COVID-19 negative. Urine Legionella antigen negative. Procalcitonin was 0.32. He is continued on vancomycin and ceftriaxone. The patient is seen today September 12, 2023 in follow-up on the regular medical floor. He is awake and alert in no acute distress. Denies any worsening shor tness of breath, cough or congestion. Denies any left-sided chest discomfort this morning. Maintaining O2 saturations in the 90s on room air. He did develop another fever last night with a temperature of 101.9. Currently 99.5. White count 14.3. Hemoglobin 13.0. Platelets 360. Sodium 142. Potassium 4.3. Bicarb 22. BUN 6. Creatinine 0.7. Glucose 100. Vancomycin trough 11.3. Blood cultures revealed no growth. He is continued on vancomycin and ceftriaxone currently. Remains on a Medrol Dosepak. Objective - Vital Signs Vital signs: Vital Signs Temp 99.5 F 09/12/23 07:24 Pulse 94 09/12/23 07:24 Resp 16 09/12/23 07:24 BP 116/65 09/12/23 07:24 Pulse Ox 97 09/12/23 07:24 FiO2 Intake & Output 09/11/23 09/12/23 09/12/23 18:59 06:59 18:59 Intake Total 300 590 Output Total 700 Balance -400 590 Intake: Intake, IV Titration 300 Amount Vancomycin 1,250 mg In 250 Sodium Chloride 0.9% 250 ml @ 125 mls/hr IVPB Q8H [facility] Rx#:[id number] cefTRIAXone 2 gm In 50 Sodium Chloride 0.9% 50 ml @ 100 mls/hr IVPB Q24HR [facility] Rx#:[id number] Oral 590 Output: Urine 700 Other: Voiding Method Toilet Toilet # Voids 2 - Exam GENERAL EXAM: Alert, pleasant 23-year-old male, on room air, ambulating in room, in no apparent distress. HEAD: Normocephalic. EYES: Normal reaction of pupils, equal size. NOSE: Clear with pink turbinates. THROAT: No erythema or exudates. NECK: No masses, no JVD. CHEST: No chest wall deformity. LUNGS: Equal air entry with crackles, rhonchi in the left lung base diminished. CVS: S1 and S2 normal with no audible murmur, regular rhythm. ABDOMEN: No hepatosplenomegaly, normal bowel sounds, no guarding or rigidity. SPINE: No scoliosis or deformity SKIN: No rashes CENTRAL NERVOUS SYSTEM: No focal deficits, tone is normal in all 4 extremities. EXTREMITIES: There is no peripheral edema. No clubbing, no cyanosis. Perip heral pulses are intact. - Labs CBC & Chem 7: 09/12/23 05:31 09/12/23 05:31 Labs: Abnormal Lab Results - Last 24 Hours (Table) 09/12/23 09/12/23 Range/Units 05:31 05:31 WBC 14.34 H (4.50-10.00) X 10*3/uL RBC 4.23 L (4.40-5.60) X 10*6/uL Hct 37.8 L (39.6-50.0) % MPV 9.0 L (9.5-12.2) FL Immature Gran # 0.08 H (0.00-0.04) X 10*3/uL Neutrophils # 10.92 H (1.80-7.70) X 10*3/uL Monocytes # 1.56 H (0.20-1.00) X 10*3/uL Anion Gap 14.20 H (4.00-12.00) mmol/L BUN 6.4 L (9.0-27.0) mg/dL BUN/Creatinine Ratio 9.14 L (12.00-20.00) Ratio ALT 53 H (10-49) U/L Total Protein 6.1 L (6.2-8.2) g/dL Albumin 3.6 L (3.8-4.9) g/dL Albumin/Globulin Ratio 1.44 L (1.60-3.17) Ratio Microbiology - Last 24 Hours (Table) 09/10/23 12:46 Blood Culture - Preliminary Blood 09/10/23 12:40 Blood Culture - Preliminary Blood 09/10/23 13:49 Nasal Screen MRSA/MSSA - Final Nasal Swab Assessment and Plan Assessment: Left-sided chest discomfort/pleurisy secondary to a left lower lobe infiltrate, effusion. Suspect community-acquired pneumonia. Ultrasound of the left chest did not reveal a significant effusion for thoracentesis Leukocytosis secondary to above, trending down Febrile illness secondary to above Urine drug screen positive for marijuana Chronic tobacco dependence Plan: The patient was seen and evaluated Labs and medications reviewed Continue vancomycin and ceftriaxone Continue Medrol Dosepak Pleuritic pain is improved Follow-up chest x-ray in a.m. Possible discharge in a.m. We will continue to follow I have personally seen and examined the patient, performed the documentation and the assessment and plan as written. Number of minutes spent on the visit: 10.
[2023-09-12] MEDS ORDERED: VANCOMYCIN 1,500 MG in SODIUM CHLORIDE 0.9% 500 ML 500 ML IVPB SCH (15:00)
[2023-09-13 06:26] LABS: African American GFR (CKD) >90 (>60 ml/min/1.73 sqM); Non-African American GFR(CKD) >90 (>60 ml/min/1.73 sqM)
[2023-09-13 07:32] VITALS: BP 129/76; PULSE 80; RESP 17; TEMP 99
--- NOTE | 2023-09-13 08:32 | P.DS ---
Providers Date of admission: 09/10/23 13:32 Attending physician: Curt Maurer Consults: 09/10/23 13:43 Consult Physician Routine Consulting Provider: Aida Rodriguez Consult Reason/Comments: Pneumonia, pleural effusion Do you want consulting provider notified?: Yes 09/10/23 13:44 Consult Physician Routine Consulting Provider: Brayan Thomson Consult Reason/Comments: Pneumonia Do you want consulting provider notified?: Yes Primary care physician: Curt Maurer - Discharge Diagnosis(es) (1) Pleural effusion Current Visit: Yes Status: Acute (2) Pneumonia Current Visit: Yes Status: Acute Hospital Course: The patient is a 23-year-old white male essentially admitted for pneumonia refractory to outpatient treatment. The patient is stabilized. Pulmonology was consulted. He was placed on appropriate antibiotic treatment and is now improving. We will DC in stable condition to follow-up in about a week. Patient Condition at Discharge: Fair Plan - Discharge Summary Discharge Rx Participant: No New Discharge Prescriptions: New methylPREDNISolone Dose Pack [Medrol Dose Pack] 16 mg PO DAILY 5 Days #1 pack cefUROXime axetiL [Ceftin] 500 mg PO BID 7 Days #14 tab Discontinued traMADol HCl [Ultram] 50 mg PO Q6H PRN #12 tab PRN Reason: Pain Azithromycin [Zithromax] See Taper PO DIRECTED Discharge Medication List cefUROXime axetiL [Ceftin] 500 mg PO BID 7 Days #14 tab 09/13/23 [Rx] methylPREDNISolone Dose Pack [Medrol Dose Pack] 16 mg PO DAILY 5 Days #1 pack 09/13/23 [Rx] Follow up Appointment(s)/Referral(s): Curt Maurer MD [Primary Care Provider] - 3 Days Discharge Disposition: HOME SELF-CARE
[2023-09-13 08:51] LABS: Basophils # (A) 0.05 X 10*3/uL (0.00-0.10); Basophils % (A) 0.4 %; Eosinophils % (A) 1.5 %; HCT 38.5 % (39.6-50.0); HGB 12.7 g/dL (13.0-17.0); Lymphocytes # (A) 2.56 X 10*3/uL (0.90-5.00); MCH 30.4 pg (27.0-32.0); MCV 92.1 FL (80.0-97.0); Mean Platelet Volume 8.9 FL (9.5-12.2); Monocytes # (A) 1.36 X 10*3/uL (0.20-1.00); Monocytes % (A) 10.1 %; NRBC Per 100 WBC 0 X 10*3/uL (0.00-0.01); Neutrophils # (A) 9.24 X 10*3/uL (1.80-7.70); Neutrophils % (A) 68.6 %; Platelet Count 378 X 10*3/uL (140-440); RBC 4.18 X 10*6/uL (4.40-5.60); RDW 11.7 % (11.5-14.5); WBC 13.46 X 10*3/uL (4.50-10.00)
--- NOTE | 2023-09-13 16:00 | P.PN ---
Subjective Progress Note Date: 09/11/23 Principal diagnosis: Reason for follow-up is pneumonia Patient is a 23-year-old male with a past medical history significant for seizure disorder ADHD current everyday smoker patient was brought into the hospital for evaluation of increasing shortness of breath and left-sided chest pain has been diagnosed with pneumonia concerning for possible parapneumonic effusion. On today's evaluation that is 09/11/2023, Patient is afebrile patient is currently on room air and denies having any shortness of breath, the patient left-sided chest chest pain and cough has decreased intensity remains to be dry in nature, the patient denies any nausea vomiting did not have any abdominal pain and no diarrhea. Patient white count is down to 18.8 creatinine 0.73, cultures pending Objective - Vital Signs Vital signs: Vital Signs Temp 98.5 F 09/11/23 12:12 Pulse 79 09/11/23 12:12 Resp 16 09/11/23 12:12 BP 126/70 09/11/23 12:12 Pulse Ox 95 09/11/23 12:12 FiO2 Intake & Output 09/10/23 09/11/23 09/11/23 18:59 06:59 18:59 Output Total 700 Balance -700 Weight 63.503 kg 63.503 kg Output: Urine 700 Other: Voiding Method Toilet Toilet # Voids 3 - Exam GENERAL DESCRIPTION: Young male lying in bed in no distress RESPIRATORY SYSTEM: Unlabored breathing , decreased breath sounds at left base no wheeze HEART: S1 S2 regular rate and rhythm , ABDOMEN: Soft , no tenderness EXTREMITIES: No edema feet - Labs CBC & Chem 7: 09/13/23 05:24 09/13/23 05:24 Labs: Abnormal Lab Results - Last 24 Hours (Table) 09/10/23 09/10/23 09/10/23 Range/Units 12:46 12:46 14:05 WBC (3.8-10.6) k/uL Neutrophils # (1.3-7.7) k/uL Monocytes # (0-1.0) k/uL C-Reactive Protein 10.10 H (0.00-0.80) mg/dL Procalcitonin 0.32 H (0.02-0.09) ng/mL U Marijuana (THC) Screen Detected H (NotDetected) 06/18/24 Range/Units 07:02 WBC 18.8 H (3.8-10.6) k/uL Neutrophils # 15.9 H (1.3-7.7) k/uL Monocytes # 1.6 H (0-1.0) k/uL C-Reactive Protein (0.00-0.80) mg/dL Procalcitonin (0.02-0.09) ng/mL U Marijuana (THC) Screen (NotDetected) Assessment and Plan (1) Pneumonia Status: Acute Code(s): J18.9 - PNEUMONIA, UNSPECIFIED ORGANISM SNOMED Code(s): 701238723 Plan: 1patient presented to hospital with increasing shortness of breath cough left- sided chest pain and this patient has been diagnosed with a left-sided pneumonia with a parapneumonic effusion with concern for possible loculated/empyema not entirely excluded, we will need to call for the community-acquired pathogen as well as resistant gram-positive 2-try to obtain a sputum for Gram stain culture. 3-patient did have some clinical improvement will be treated with Rocephin and vancomycin while waiting for the culture to finalize Dictation was produced using [employer] dictation software. please excuse any grammatical, word or spelling errors. Time with Patient: Less than 30
--- NOTE | 2023-09-13 16:01 | P.PN ---
Subjective Progress Note Date: 09/12/23 Principal diagnosis: Reason for follow-up is pneumonia Patient is a 23-year-old male with a past medical history significant for seizure disorder ADHD current everyday smoker patient was brought into the hospital for evaluation of increasing shortness of breath and left-sided chest pain has been diagnosed with pneumonia concerning for possible parapneumonic effusion. On today's evaluation that is 09/12/2023, patient has been afebrile, patient is breathing comfortably and is currently on room air, patient cough is decreased in intensity denies any left-sided chest pain no nausea vomiting no abdominal pain and no diarrhea feeling better. Patient white count is 14.34 creatinine 0.7 MRSA nasal screen came back negative sputum culture pending Objective - Vital Signs Vital signs: Vital Signs Temp 99.5 F 09/12/23 07:24 Pulse 94 09/12/23 07:24 Resp 16 09/12/23 07:24 BP 116/65 09/12/23 07:24 Pulse Ox 97 09/12/23 07:24 FiO2 Intake & Output 09/11/23 09/12/23 09/12/23 18:59 06:59 18:59 Intake Total 300 590 Output Total 700 Balance -400 590 Intake: Intake, IV Titration 300 Amount Vancomycin 1,250 mg In 250 Sodium Chloride 0.9% 250 ml @ 125 mls/hr IVPB Q8H [facility] Rx#:[id number] cefTRIAXone 2 gm In 50 Sodium Chloride 0.9% 50 ml @ 100 mls/hr IVPB Q24HR [facility] Rx#:[id number] Oral 590 Output: Urine 700 Other: Voiding Method Toilet Toilet # Voids 2 - Exam GENERAL DESCRIPTION: Young male lying in bed in no distress RESPIRATORY SYSTEM: Unlabored breathing , decreased breath sounds at left base no wheeze HEART: S1 S2 regular rate and rhythm , ABDOMEN: Soft , no tenderness EXTREMITIES: No edema feet - Labs CBC & Chem 7: 09/13/23 05:24 09/13/23 05:24 Labs: Abnormal Lab Results - Last 24 Hours (Table) 09/12/23 09/12/23 Range/Units 05:31 05:31 WBC 14.34 H (4.50-10.00) X 10*3/uL RBC 4.23 L (4.40-5.60) X 10*6/uL Hct 37.8 L (39.6-50.0) % MPV 9.0 L (9.5-12.2) FL Anion Gap 14.20 H (4.00-12.00) mmol/L BUN 6.4 L (9.0-27.0) mg/dL BUN/Creatinine Ratio 9.14 L (12.00-20.00) Ratio ALT 53 H (10-49) U/L Total Protein 6.1 L (6.2-8.2) g/dL Albumin 3.6 L (3.8-4.9) g/dL Albumin/Globulin Ratio 1.44 L (1.60-3.17) Ratio Microbiology - Last 24 Hours (Table) 09/10/23 12:46 Blood Culture - Preliminary Blood 09/10/23 12:40 Blood Culture - Preliminary Blood 09/10/23 13:49 Nasal Screen MRSA/MSSA - Final Nasal Swab Assessment and Plan (1) Pneumonia Status: Acute Code(s): J18.9 - PNEUMONIA, UNSPECIFIED ORGANISM SNOMED Code(s): 853691194 Plan: 1patient presented to hospital with increasing shortness of breath cough left- sided chest pain and this patient has been diagnosed with a left-sided pneumonia with a parapneumonic effusion with concern for possible loculated/empyema not entirely excluded, we will need to call for the community-acquired pathogen as well as resistant gram-positive 2-sputum culture obtained this morning blood cultures are pending MRSA nasal swab negative 3-patient to continue with Rocephin however discontinue vancomycin as less risk of MRSA pneumonia with the MRSA nasal swab negative Dictation was produced using [employer] dictation software. please excuse any grammatical, word or spelling errors. Time with Patient: Less than 30
== END 2023-09-13 10:51 | disposition home or self-care (01) | DRG 194 ==
LOC: EC 11:36 → 4SSUR 13:32 → 5NMEDONC 19:35
PROVIDERS: ADMIT Family Medicine; ATTEND Family Medicine
DX: J18.9 Pneumonia, unspecified organism (principal); J90 Pleural effusion, not elsewhere classified; J98.11 Atelectasis; Z28.310 Unvaccinated for COVID-19; F90.9 Attention-deficit hyperactivity disorder, unspecified type; Z28.21 Immunization not carried out because of patient refusal; F17.290 Nicotine dependence, other tobacco product, uncomplicated; Z20.822 Contact with and (suspected) exposure to COVID-19; G40.909 Epilepsy, unspecified, not intractable, without status epilepticus
CPT/HCPCS: 36415; 71046; 76604; 80053; 80202; 80306; 82565; 83605; 83735; 84145; 85025; 85610; 85730; 86140; 87040; 87070; 87205; 87449; 87636; 93005; 96365; 96366; 96367; 99285

== ENCOUNTER 2023-11-18 00:27 | Emergency (ER) | payer OTHER ==
[2023-11-18] MEDS ORDERED: ACETAMINOPHEN TAB 500 MG TAB ONE (01:38)
--- NOTE | 2023-12-27 18:04 | XR ---
EXAM: XR Right Forearm, 2 Views CLINICAL HISTORY: fell off ruiz of truck while fixing engine TECHNIQUE: Frontal and lateral views of the right forearm. COMPARISON: No relevant prior studies available. FINDINGS: Bones/joints:Unremarkable. No acute fracture. No dislocation. Soft tissues:Unremarkable. IMPRESSION: Normal right forearm x-rays. EXAM: XR Right Hand Complete, 3 or More Views CLINICAL HISTORY: fell off ruiz of truck while fixing engine TECHNIQUE: Frontal, lateral and oblique views of the right hand. COMPARISON: No relevant prior studies available. FINDINGS: Bones/joints:Unremarkable. No acute fracture. No dislocation. Soft tissues:Unremarkable. No radiopaque foreign body. IMPRESSION: Normal right hand x-rays. Radiologist: Aldo Rice MD Electronically Signed: 11/18/23 03:39 Study first marked ready to read at 01:33, study last marked ready to read at 01:33, initial results transmitted at 03:39 [facility]
== END 2023-11-18 01:38 | disposition home or self-care (01) ==
LOC: EC 00:27
CPT/HCPCS: 99283

== ENCOUNTER 2023-11-26 08:32 | Emergency (ER) | payer OTHER ==
[2023-11-26 08:40] VITALS: TEMP 97.8
--- NOTE | 2023-11-26 08:43 | ED ---
General Adult HPI - General Chief complaint: Seizure Stated complaint: Seizure Time Seen by Provider: 11/26/23 08:40 Source: patient, EMS, RN notes reviewed, old records reviewed Mode of arrival: EMS Limitations: no limitations - History of Present Illness Initial comments: This is a 23-year-old male who presents to the emergency department planing of h aving a seizure. According to the witness he shook for about 5 minutes and then according to EMS he was postictal for about 10 minutes. Patient states he had a seizure back in July and that was his first 1. Patient states he followed up with a neurologist he was not put on any medications and he was given an EEG and he was told it was normal. Patient states he did not drink last night he did no t do any drugs except marijuana. Patient states last night he was upset but today he was not and he was up and around and felt fine. Patient denies any recent illness denies any fever chills or cough denies any chest pain shortness of breath or difficulty breathing. Patient denies any nausea vomiting diarrhea - Related Data Previous Rx's Medication Instructions Recorded cefUROXime axetiL [Ceftin] 500 mg PO BID 7 Days #14 tab 09/13/23 methylPREDNISolone Dose Pack 16 mg PO DAILY 5 Days #1 pack 09/13/23 [Medrol Dose Pack] Allergies Allergy/AdvReac Type Severity Reaction Status Date / Time gluten AdvReac Unknown Verified 11/26/23 08:40 lactose AdvReac Diarrhea Verified 11/26/23 08:40 red dye AdvReac inflammatio Verified 11/26/23 08:40 n Review of Systems ROS Statement: Those systems with pertinent positive or pertinent negative responses have been documented in the HPI. ROS Other: All systems not noted in ROS Statement are negative. Past Medical History Past Medical History: No Reported History, Seizure Disorder History of Any Multi-Drug Resistant Organisms: None Reported Past Surgical History: No Surgical Hx Reported Past Anesthesia/Blood Transfusion Reactions: No Reported Reaction Past Psychological History: ADD/ADHD Smoking Status: Current every day smoker, Vaper Past Alcohol Use History: None Reported Past Drug Use History: None Reported General Exam - General Exam Comments Initial Comments: GENERAL: Patient is well-developed and well-nourished. Patient is nontoxic and well- hydrated and is in no acute distress. ENT: Neck is soft and supple. No significant lymphadenopathy is noted. Oropharynx is clear. Moist mucous membranes. Neck has full range of motion without eliciting any pain. EYES: The sclera were anicteric and conjunctiva were pink and moist. Extraocular movements were intact and pupils were equal round and reactive to light. Eyelids were unremarkable. PULMONARY: Unlabored respirations. Good breath sounds bilaterally. No audible rales rhonchi or wheezing was noted. CARDIOVASCULAR: There is a regular rate and rhythm without any murmurs gallops or rubs. ABDOMEN: Soft and nontender with normal bowel sounds. SKIN: Skin is clear with no lesions or rashes and otherwise unremarkable. NEUROLOGIC: Patient is alert and oriented x3. Cranial nerves II through XII are grossly intact. Motor and sensory are also intact. Normal speech, volume and content. Symmetrical smile. MUSCULOSKELETAL: Normal extremities with adequate strength and full range of motion. LYMPHATICS: No significant lymphadenopathy is noted PSYCHIATRIC: Normal psychiatric evaluation. Limitations: no limitations Course Vital Signs 11/26/23 08:38 Temperature 97.8 F Pulse Rate 79 Respiratory 20 Rate Blood Pressure 129/74 O2 Sat by Pulse 99 Oximetry Medical Decision Making - Medical Decision Making Was pt. sent in by a medical professional or institution (, PA, [employer], urgent care, hospital, or prison...) When possible be specific @ -No Did you speak to anyone other than the patient for history (EMS, parent, family, police, friend...)? What history was obtained from this source @ -Patient's significant other gave us some of the past medical history of prior seizures Did you review nursing and triage notes (agree or disagree)? Why? @ -I reviewed and agree with nursing and triage notes Were old charts reviewed (outside hosp., previous admission, EMS record, old EKG, old radiological studies, urgent care reports/EKG's, prison records)? Report findings @ -I reviewed the patient's prior chart in July and the CAT scan results which showed no acute abnormality on the CT. Differential Diagnosis? @ -Differential Seizure: Recurrent seizure disorder, febrile seizure, alcohol withdrawal, stimulants, meningitis, encephalitis, intercranial hemorrhage, intracranial tumor, stroke, eclampsia, thyrotoxicosis, hypocalcemia, hyponatremia, hypernatremia, hypomagnesemia, psychogenic, this is not meant to be an all-inclusive list. EKG interpreted by me (3pts min.). @ -As above X-rays interpreted by me (1pt min.). @ -None done CT interpreted by me (1pt min.). @ -None done U/S interpreted by me (1pt. min.). @ -None done What testing was considered but not performed or refused? (CT, X-rays, U/S, labs)? Why? @ -None What meds were considered but not given or refused? Why? @ -None Did you discuss the management of the patient with other professionals (professionals i.e. , PA, [employer], lab, RT, psych nurse, social studies teacher, seafood clerk, teacher, chief media officer, pillowcase turner)? Give summary @ -No Was smoking cessation discussed for >3mins.? @ -No Was critical care preformed (if so, how long)? @ -No Were there social determinants of health that impacted care today? How? (Homelessness, low income, unemployed, alcoholism, drug addiction, transportati on, low edu. Level, literacy, decrease access to med. care, snf, rehab)? @ -No Was there de-escalation of care discussed even if they declined (Discuss DNR or withdrawal of care, Hospice)? DNR status @ -No What co-morbidities impacted this encounter? (DM, HTN, Smoking, COPD, CAD, Cancer, CVA, ARF, Chemo, Hep., AIDS, mental health diagnosis, sleep apnea, morbid obesity)? @ -None Was patient admitted / discharged? Hospital course, mention meds given and route, prescriptions, significant lab abnormalities, going to OR and other pertinent info. @ -Patient was alert and oriented x 4 the whole time he was in the emergency department he did complain of a little bit of a headache. Patient was given Motrin for the headache. Patient did not want to stay for lab work or further evaluation however he did agree to wait for the lab work to come back eventually. Patient then was requesting to be discharged. Patient states he will follow-up with neurology Undiagnosed new problem with uncertain prognosis? @ -No Drug Therapy requiring intensive monitoring for toxicity (Heparin, Nitro, Insulin, Cardizem)? @ -No Were any procedures done? @ -No Diagnosis/symptom? @ -Generalized seizure Acute, or Chronic, or Acute on Chronic? @ -Acute Uncomplicated (without systemic symptoms) or Complicated (systemic symptoms)? @ -Complicated Side effects of treatment? @ -No Exacerbation, Progression, or Severe Exacerbation? @ -No Poses a threat to life or bodily function? How? (Chest pain, [place], [place], pneumonia, PE, COPD, DKA, ARF, appy, cholecystitis, CVA, Diverticulitis, Homicidal, Suicidal, threat to staff... and all critical care pts) @ -No - Lab Data Result diagrams: 11/26/23 08:49 11/26/23 08:49 Lab Results 11/26/23 11/26/23 11/26/23 Range/Units 08:49 08:49 08:49 WBC 5.2 (3.8-10.6) k/uL RBC 5.12 (4.30-5.90) m/uL Hgb 15.8 (13.0-17.5) gm/dL Hct 46.7 (39.0-53.0) % MCV 91.2 (80.0-100.0) fL MCH 30.8 (25.0-35.0) pg MCHC 33.8 (31.0-37.0) g/dL RDW 12.4 (11.5-15.5) % Plt Count 263 (150-450) k/uL MPV 6.9 Neutrophils % 53 % Lymphocytes % 34 % Monocytes % 7 % Eosinophils % 3 % Basophils % 1 % Neutrophils # 2.8 (1.3-7.7) k/uL Lymphocytes # 1.8 (1.0-4.8) k/uL Monocytes # 0.4 (0-1.0) k/uL Eosinophils # 0.2 (0-0.7) k/uL Basophils # 0.0 (0-0.2) k/uL Sodium 139 (137-145) mmol/L Potassium 4.3 (3.5-5.1) mmol/L Chloride 109 H (98-107) mmol/L Carbon Dioxide 21 L (22-30) mmol/L Anion Gap 9 mmol/L BUN 9 (9-20) mg/dL Creatinine 0.81 (0.66-1.25) mg/dL Est GFR (CKD-EPI)AfAm >90 (>60 ml/min/1.73 sqM) Est GFR (CKD-EPI)NonAf >90 (>60 ml/min/1.73 sqM) Glucose 113 H (74-99) mg/dL Calcium 9.4 (8.4-10.2) mg/dL Magnesium 1.9 (1.6-2.3) mg/dL Total Bilirubin 0.5 (0.2-1.3) mg/dL AST 30 (17-59) U/L ALT 19 (4-49) U/L Alkaline Phosphatase 82 (38-126) U/L Total Protein 6.8 (6.3-8.2) g/dL Albumin 4.3 (3.5-5.0) g/dL Urine Opiates Screen Not Detected (NotDetected) Ur Oxycodone Screen Not Detected (NotDetected) Urine Methadone Screen Not Detected (NotDetected) Ur Barbiturates Screen Not Detected (NotDetected) U Tricyclic Antidepress Not Detected (NotDetected) Ur Phencyclidine Scrn Not Detected (NotDetected) Ur Amphetamines Screen Not Detected (NotDetected) U Methamphetamines Scrn Not Detected (NotDetected) U Benzodiazepines Scrn Not Detected (NotDetected) Urine Cocaine Screen Not Detected (NotDetected) U Marijuana (THC) Screen Detected H (NotDetected) Disposition Clinical Impression: Generalized seizure Disposition: HOME SELF-CARE Condition: Good Instructions (If sedation given, give patient instructions): Seizure/Epilepsy Discharge Instructions & Follow-Up Additional Instructions: Patient is not allowed to drive until he is cleared by neurology Is patient prescribed a controlled substance at d/c from ED?: No Referrals: Curt Maurer MD [Primary Care Provider] - 1-2 days Time of Disposition: 10:44
[2023-11-26 09:11] LABS: Basophils % (A) 1 %; Eosinophils # (A) 0.2 k/uL (0-0.7); Eosinophils % (A) 3 %; HCT 46.7 % (39.0-53.0); HGB 15.8 gm/dL (13.0-17.5); Lymphocytes # (A) 1.8 k/uL (1.0-4.8); Lymphocytes % (A) 34 %; MCH 30.8 pg (25.0-35.0); MCHC 33.8 g/dL (31.0-37.0); MCV 91.2 fL (80.0-100.0); Mean Platelet Volume 6.9; Monocytes # (A) 0.4 k/uL (0-1.0); Monocytes % (A) 7 %; Neutrophils # (A) 2.8 k/uL (1.3-7.7); Neutrophils % (A) 53 %; Platelet Count 263 k/uL (150-450); RBC 5.12 m/uL (4.30-5.90); RDW 12.4 % (11.5-15.5); WBC 5.2 k/uL (3.8-10.6)
[2023-11-26 09:23] LABS: ALT 19 U/L (4-49); AST 30 U/L (17-59); African American GFR (CKD) >90 (>60 ml/min/1.73 sqM); Albumin 4.3 g/dL (3.5-5.0); Alkaline Phosphatase 82 U/L (38-126); Anion Gap 9 mmol/L; Blood Urea Nitrogen 9 mg/dL (9-20); Calcium 9.4 mg/dL (8.4-10.2); Carbon Dioxide 21 mmol/L (22-30); Chloride 109 mmol/L (98-107); Glucose 113 mg/dL (74-99); Magnesium 1.9 mg/dL (1.6-2.3); Non-African American GFR(CKD) >90 (>60 ml/min/1.73 sqM); Potassium 4.3 mmol/L (3.5-5.1); Sodium 139 mmol/L (137-145); Total Bilirubin 0.5 mg/dL (0.2-1.3); Total Protein 6.8 g/dL (6.3-8.2)
[2023-11-26 09:28] LABS: Amphetamine Screen,Urine Not Detected (NotDetected); Barbiturate Screen,Urine Not Detected (NotDetected); Benzodiazepines Screen,Urine Not Detected (NotDetected); Cocaine Screen,Urine Not Detected (NotDetected); Methadone Screen, Urine Not Detected (NotDetected); Opiate Screen,Urine Not Detected (NotDetected); Oxycodone Screen, Urine Not Detected (NotDetected); Phencyclidine Screen,Urine Not Detected (NotDetected); Tricyclic Antidepressant,Urine Not Detected (NotDetected); Urn Cannabinoid Scrn Detected (NotDetected)
[2023-11-26] MEDS: IBUPROFEN 600 MG TAB PO STA (10:48)
[2023-11-26 10:52] VITALS: BP 124/84; PULSE 74; RESP 18
== END 2023-11-26 10:52 | disposition home or self-care (01) ==
LOC: EC 08:32
CPT/HCPCS: 36415; 80053; 80306; 83735; 85025; 99283

== ENCOUNTER 2023-11-26 13:25 | Observation (INO) | payer OTHER ==
--- NOTE | 2023-11-26 14:04 | ED ---
General Adult HPI - General Chief complaint: Seizure Stated complaint: seizure Time Seen by Provider: 11/26/23 13:30 Source: patient, EMS, RN notes reviewed, old records reviewed Mode of arrival: EMS Limitations: no limitations - History of Present Illness Initial comments: This is a 23-year-old male who complains that he had another seizure. According to the patient he was here earlier today after having had a seizure and about a 10-minute postictal period. Patient was seen in the emergency department and he was asymptomatic and was requesting to leave so patient was discharged home to follow-up with his neurologist. Patient went home was in his bedroom and had nothing to eat or drink. Patient states he did not do any drugs or doing drinking and according to his roommate he had a seizure that lasted about 2 minutes and then he was postictal for about 10 minutes according to EMS. Patient currently is complaining of a mild headache he denies any numbness or weakness. Patient [place] any fever chills. Patient has any chest pain or shortness of breath or patient has abdominal pain patient has nausea vomiting. - Related Data Previous Rx's Medication Instructions Recorded cefUROXime axetiL [Ceftin] 500 mg PO BID 7 Days #14 tab 09/13/23 methylPREDNISolone Dose Pack 16 mg PO DAILY 5 Days #1 pack 09/13/23 [Medrol Dose Pack] Allergies Allergy/AdvReac Type Severity Reaction Status Date / Time gluten AdvReac Unknown Verified 11/26/23 13:31 lactose AdvReac Diarrhea Verified 11/26/23 13:31 red dye AdvReac inflammatio Verified 11/26/23 13:31 n Review of Systems ROS Statement: Those systems with pertinent positive or pertinent negative responses have been documented in the HPI. ROS Other: All systems not noted in ROS Statement are negative. Past Medical History Past Medical History: No Reported History, Seizure Disorder History of Any Multi-Drug Resistant Organisms: None Reported Past Surgical History: No Surgical Hx Reported Past Anesthesia/Blood Transfusion Reactions: No Reported Reaction Past Psychological History: ADD/ADHD Smoking Status: Current every day smoker, Vaper Past Alcohol Use History: None Reported Past Drug Use History: Marijuana General Exam - General Exam Comments Initial Comments: GENERAL: Patient is well-developed and well-nourished. Patient is nontoxic and well- hydrated and is in mild distress. ENT: Neck is soft and supple. No significant lymphadenopathy is noted. Oropharynx is clear. Moist mucous membranes. Neck has full range of motion without eliciting any pain. EYES: The sclera were anicteric and conjunctiva were pink and moist. Extraocular movements were intact and pupils were equal round and reactive to light. Eyelids were unremarkable. PULMONARY: Unlabored respirations. Good breath sounds bilaterally. No audible rales rhonchi or wheezing was noted. CARDIOVASCULAR: There is a regular rate and rhythm without any murmurs gallops or rubs. ABDOMEN: Soft and nontender with normal bowel sounds. SKIN: Skin is clear with no lesions or rashes and otherwise unremarkable. NEUROLOGIC: Patient is alert and oriented x3. Cranial nerves II through XII are grossly intact. Motor and sensory are also intact. Normal speech, volume and content. Symmetrical smile. MUSCULOSKELETAL: Normal extremities with adequate strength and full range of motion. LYMPHATICS: No significant lymphadenopathy is noted PSYCHIATRIC: Normal psychiatric evaluation. Limitations: no limitations Course Vital Signs 11/26/23 13:27 Temperature 98.5 F Pulse Rate 85 Respiratory 16 Rate Blood Pressure 139/71 O2 Sat by Pulse 95 Oximetry Medical Decision Making - Medical Decision Making EKG is interpreted by myself but EKG shows a sinus rhythm at 73 bpm [place] 146 QRS 103 QT interval is 4 6 QTc is 431. Patient's EKG shows no ST segment ovation or depression. Was pt. sent in by a medical professional or institution (SABINE Che, ENTRY ANALYST, urgent care, hospital, or alf...) When possible be specific @ -No Did you speak to anyone other than the patient for history (EMS, parent, family, police, friend...)? What history was obtained from this source @ -No Did you review nursing and triage notes (agree or disagree)? Why? @ -I reviewed and agree with nursing and triage notes Were old charts reviewed (outside hosp., previous admission, EMS record, old EKG, old radiological studies, urgent care reports/EKG's, alf records)? Report findings @ -No old charts were reviewed Differential Diagnosis? @ -Differential Seizure: Recurrent seizure disorder, febrile seizure, alcohol withdrawal, stimulants, meningitis, encephalitis, intercranial hemorrhage, intracranial tumor, stroke, eclampsia, thyrotoxicosis, hypocalcemia, hyponatremia, hypernatremia, hypomagnesemia, psychogenic, this is not meant to be an all-inclusive list. EKG interpreted by me (3pts min.). @ -As above X-rays interpreted by me (1pt min.). @ -None done CT interpreted by me (1pt min.). @ -CT scan showed no acute abnormality U/S interpreted by me (1pt. min.). @ -None done What testing was considered but not performed or refused? (CT, X-rays, U/S, labs)? Why? @ -None What meds were considered but not given or refused? Why? @ -None Did you discuss the management of the patient with other professionals (professionals i.e. , PA, ENTRY ANALYST, lab, RT, psych nurse, social service manager, insecticide supervisor, teacher, chairman and chief executive officer, case reviewer)? Give summary @ -I spoke with Dr. Pierson he agreed to admit the patient Was smoking cessation discussed for >3mins.? @ -No Was critical care preformed (if so, how long)? @ -No Were there social determinants of health that impacted care today? How? (Homelessness, low income, unemployed, alcoholism, drug addiction, transportation, low edu. Level, literacy, decrease access to med. care, long term, rehab)? @ -No Was there de-escalation of care discussed even if they declined (Discuss DNR or withdrawal of care, Hospice)? DNR status @ -No What co-morbidities impacted this encounter? (DM, HTN, Smoking, COPD, CAD, Cancer, CVA, ARF, Chemo, Hep., AIDS, mental health diagnosis, sleep apnea, morbid obesity)? @ -None Was patient admitted / discharged? Hospital course, mention meds given and route, prescriptions, significant lab abnormalities, going to OR and other pertinent info. @ -Patient had no further seizures in the emergency department. Patient will be admitted to Dr. Joiner with a consult to the neurologist. Undiagnosed new problem with uncertain prognosis? @ -No Drug Therapy requiring intensive monitoring for toxicity (Heparin, Nitro, Insulin, Cardizem)? @ -No Were any procedures done? @ -No Diagnosis/symptom? @ -Generalized seizure Acute, or Chronic, or Acute on Chronic? @ -Acute Uncomplicated (without systemic symptoms) or Complicated (systemic symptoms)? @ -Complicated Side effects of treatment? @ -No Exacerbation, Progression, or Severe Exacerbation? @ -No Poses a threat to life or bodily function? How? (Chest pain, [place], [place], pneumonia, PE, COPD, DKA, ARF, appy, cholecystitis, CVA, Diverticulitis, Homicidal, Suicidal, threat to staff... and all critical care pts) @ -Yes this can lead to prolonged seizures and status epilepticus Disposition Clinical Impression: Generalized seizure Disposition: ADMITTED IP TO THIS [facility] Instructions (If sedation given, give patient instructions): Seizure/Epilepsy Discharge Instructions & Follow-Up Referrals: Curt Maurer MD [Primary Care Provider] - 1-2 days Time of Disposition: 14:59
--- NOTE | 2023-11-26 14:05 | CT ---
EXAMINATION TYPE: CT brain wo con DATE OF EXAM: 11/26/2023 COMPARISON: 08/15/2023 INDICATION: Seizures x 2 DLP: 1095.4 mGycm, Automated exposure control for dose reduction was used. CONTRAST: None CT of the brain is performed utilizing 3 mm thick sections through the posterior fossa and 3 mm thick sections through the remaining calvarium. Study is performed within 24 hours of arrival to the hosp ital. No abnormal hyperdensity is present to suggest an acute intracranial hemorrhage. No mass lesion is evident. No acute infarcts are evident. Ventricles and sulci are appropriate for the patient age. Paranasal sinuses and mastoid air cells within the [id number] are clear. IMPRESSION: 1. No acute intracranial process. Follow up MRI can be performed as clinically indicated.
[2023-11-26] MEDS: ACETAMINOPHEN TAB 500 MG TAB PO STA (14:07)
[2023-11-26] MEDS ORDERED: LORazepam 2 MG/ML INJ IV PRN (15:02)
[2023-11-26] MEDS: SODIUM CHLORIDE 0.9% 1,000 ML IV ONE (15:09)
--- NOTE | 2023-11-26 16:24 | P.HPIM ---
History of Present Illness This is a pleasant 23 years old male with no significant past medical history Presents because of seizure-like activity Information was obtained from his partner at bedside. 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 Patient came to the emergency room and had workup including CT of the brain which was unremarkable. He was discharged home, at home he was asleep again and his partner noticed a second episode similar to above but this time lasted for about a minute followed by confusion, patient woke up in the hospital He had similar episode about few months ago. Total he had 3 this year. He is not on antiseizure medication at home He denies any headache dizziness weakness or numbness. No chest pain or dyspnea. No GI/ symptoms no fever or chills He vapes and he was counseled to quit the nicotine but he declines. No alcohol or illicit drugs Review of Systems Review of systems CONSTITUTIONAL: No fever, no malaise, no fatigue. HEENT: No recent visual problems or hearing problems. Denied any sore throat. CARDIOVASCULAR: No orthopnea, PND, no palpitations, no syncope. PULMONARY: No shortness of breath, no cough, no hemoptysis. GASTROINTESTINAL: No diarrhea, no nausea, no vomiting, no abdominal pain. Normoactive bowel sounds. NEUROLOGICAL: No headaches, no weakness, no numbness. HEMATOLOGICAL: Denies any bleeding or petechiae. GENITOURINARY: Denies any burning micturition, frequency, or urgency. MUSCULOSKELETAL/RHEUMATOLOGICAL: Denies any joint pain, swelling, or any muscle pain. ENDOCRINE: Denies any polyuria or polydipsia. Past Medical History Past Medical History: No Reported History, Seizure Disorder History of Any Multi-Drug Resistant Organisms: None Reported Past Surgical History: No Surgical Hx Reported Past Anesthesia/Blood Transfusion Reactions: No Reported Reaction Past Psychological History: ADD/ADHD Smoking Status: Current every day smoker, Vaper Past Alcohol Use History: None Reported Additional Past Alcohol Use History / Comment(s): patient vapes, and occassionally smokes ciggarettes. Past Drug Use History: Marijuana Medications and Allergies Home Medications Medication Instructions Recorded Confirmed Type No Known Home Medications 11/26/23 11/26/23 History Allergies Allergy/AdvReac Type Severity Reaction Status Date / Time gluten AdvReac Unknown Verified 11/26/23 15:25 lactose AdvReac Diarrhea Verified 11/26/23 15:25 red dye AdvReac inflammatio Verified 11/26/23 15:25 n Physical Exam Vitals: Vital Signs Temp Pulse Resp BP Pulse Ox 11/26/23 15:46 51 L 16 94/52 96 11/26/23 13:27 98.5 F 85 16 139/71 95 Intake and Output 11/26/23 11/26/23 11/26/23 06:59 14:59 22:59 Other: Weight 63.503 kg 63.503 kg GENERAL: The patient is alert and oriented x3, not in any acute distress. Well developed, well nourished. HEENT: Pupils are round and equally reacting to light. EOMI. No scleral icterus. No conjunctival pallor. Normocephalic, atraumatic. No pharyngeal erythema. No thyromegaly. CARDIOVASCULAR: S1 and S2 present. No murmurs, rubs, or gallops. PULMONARY: Chest is clear to auscultation, no wheezing , no crackles. ABDOMEN: Soft, nontender, nondistended, normoactive bowel sounds. No palpable organomegaly. MUSCULOSKELETAL: No joint swelling or deformity. EXTREMITIES: No cyanosis, clubbing, or pedal edema. NEUROLOGICAL: Gross neurological examination did not reveal any focal deficits. SKIN: No rashes. no petechiae. Thrombosis Risk Factor Assmnt - Choose All That Apply Any of the Below Risk Factors Present?: No Other Risk Factors: No Thrombosis Risk Factor Assessment Level: Very Low Risk Assessment and Plan Assessment: Seizure x 2 present on admission Nicotine dependence Plan: [facility] Continue seizure precautions Neurology consult Patient was counseled to quit smoking but he Is not ready Low risk for DVT. No need for anticoagulation.
[2023-11-26] MEDS: ACETAMINOPHEN TAB 325 MG TAB PO PRN (20:57)
--- NOTE | 2023-11-27 09:15 | P.PN ---
Subjective Progress Note Date: 11/27/23 This is a 23-year-old male who presented to the emergency department with complaints of seizure-like activity. Patient was sleeping and had a witnessed possible seizure by his partner in which he was grunting and clenching his jaw and foaming at the mouth. Patient denies any history of seizures. He is seen this morning sitting up in bed. He denies any further seizure-like activity overnight. Neurology has been consulted. Objective - Vital Signs Vital signs: Vital Signs Temp 97.9 F 11/27/23 06:50 Pulse 65 11/27/23 06:50 Resp 15 11/27/23 06:50 BP 120/65 11/27/23 06:50 Pulse Ox 97 11/27/23 06:50 FiO2 Intake & Output 11/26/23 11/27/23 11/27/23 18:59 06:59 18:59 Weight 63.503 kg Other: # Voids 3 - Constitutional General appearance: Present: cooperative, no acute distress - EENT Eyes: Present: PERRLA - Neck Neck: Present: normal ROM. Absent: lymphadenopathy, rigidity - Respiratory Respiratory: bilateral: CTA - Cardiovascular Rhythm: regular Heart sounds: normal: S1, S2 - Gastrointestinal General gastrointestinal: Present: soft. Absent: tenderness - Integumentary Integumentary: Present: normal, normal turgor - Psychiatric Psychiatric: Present: A&O x's 3 Assessment and Plan (1) Generalized seizure Current Visit: Yes Status: Acute Code(s): R56.9 - UNSPECIFIED CONVULSIONS SNOMED Code(s): 438526650 (2) Currently smokes tobacco Current Visit: No Status: Acute Code(s): F17.200 - NICOTINE DEPENDENCE, UNSPECIFIED, UNCOMPLICATED SNOMED Code(s): 74124987 Plan: Await recommendations from neurology. Patient seen and evaluated by nurse practitioner, physician in agreement with plan
[2023-11-27 10:25] LABS: BUN/Creat Ratio 11.78 Ratio (12.00-20.00); Blood Urea Nitrogen 10.6 mg/dL (9.0-27.0); Calcium 8.6 mg/dL (8.7-10.3); Carbon Dioxide 23.5 mmol/L (21.6-31.8); Chloride 106 mmol/L (96-109); Glucose 100 mg/dL (70-110); Potassium 4.1 mmol/L (3.5-5.5); Sodium 139 mmol/L (135-145)
[2023-11-27 12:46] VITALS: BP 114/66; PULSE 75; RESP 16; TEMP 98.3
--- NOTE | 2023-11-27 13:33 | P.CNNES ---
History of Present Illness Consult date: 11/27/23 Requesting physician: Panda Melchor Reason for Consult: Seizure x 2 History of Present Illness: Patient is a 23-year-old right-handed male came to the hospital by ambulance yesterday at 1:25 PM for a seizure. Patient's significant other was also present and they provided with a history. 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 It lasted for about 20 seconds. There was no tongue bite or loss of control of urine. Patient's caregiver called the ambulance. As per EMS flowsheet, when they arrived, patient was laying in bed altered. Patient was hot to touch, flushed and diaphoretic. Patient was mildly combative. Patient was noted to have a to adeel-clonic seizure. Patient was postictal when EMS arrived. Patient noted to have previous had a seizure just over a month ago. Patient's blood pressure was 122/76. Patient was brought to the hospital, evaluated by ED, underwent CT of the head which was normal. Patient was noted to be alert and oriented, complaining of mild headache. Patient was given Motrin for the headache. Patient was sent home, but had another seizure at around 1 PM yesterday. This time it lasted for about 1 to 2 minutes. EMS was again called and was brought to the hospital. Patient's blood pressure was 128/65 pulse rate 90 respiration 20. Saturation 92%. Blood sugar 109. He was postictal. Vital signs arrival blood pressure 139/71, pulse 85, temperature is 98.5. Blood test shows normal electrolytes, and renal functions. CBC is normal. Urine drug screen positive for marijuana. Hepatic panel normal. CBC is normal. CT head showed no acute intracranial process. I personally reviewed CT head, agree with the findings. EKG showed sinus rhythm. Patient states that he had history of seizure about a month ago. Patient had 2 seizures at home. On reviewing records, it was actually on 08/15/2023. He did not bite his tongue with any of his seizures. Patient was recommended neurological evaluation, but he signed out AGAINST MEDICAL ADVICE. Patient states that he subsequently was seen by Dr. Matute, who performed an EEG and MRI brain was normal. He was not placed on any seizure medication. There is no family history of epilepsy. Patient states that when he was age [age] years of age, he had a possible concussion, when he ran under a tire swing, and he was knocked out. He was checked out at the hospital. No history of childhood seizures or febrile seizures. No history of meningitis, encephalitis. Patient vapes nicotine and vapes marijuana. Patient states that he does drink high energy monster drink almost every day. He does not do any other drugs or any alcohol. Patient admits to being under a lot of stress. Patient denies headache. Patient and his significant other believes that he is back to baseline. No evidence of altered mental status. Review of Systems All pertinent positive and negatives mentioned in HPI. Past Medical History Past Medical History: No Reported History, Seizure Disorder History of Any Multi-Drug Resistant Organisms: None Reported Past Surgical History: No Surgical Hx Reported Past Anesthesia/Blood Transfusion Reactions: No Reported Reaction Past Psychological History: ADD/ADHD Smoking Status: Current every day smoker, Vaper Past Alcohol Use History: None Reported Additional Past Alcohol Use History / Comment(s): patient vapes, and occassionally smokes ciggarettes. Past Drug Use History: Marijuana Medications and Allergies Home Medications Medication Instructions Recorded Confirmed Type No Known Home Medications 11/26/23 11/26/23 History Allergies Allergy/AdvReac Type Severity Reaction Status Date / Time gluten AdvReac Unknown Verified 11/26/23 15:25 lactose AdvReac Diarrhea Verified 11/26/23 15:25 red dye AdvReac inflammatio Verified 11/26/23 15:25 n Physical Examination - Vital Signs Vital Signs: Vital Signs Temp Pulse Pulse Resp BP BP Pulse Ox 11/27/23 06:50 97.9 F 65 15 120/65 97 11/27/23 02:34 97.9 F 55 L 15 93/51 97 11/26/23 20:00 98.5 F 69 16 105/58 98 11/26/23 16:16 97.8 F 54 L 18 108/68 97 11/26/23 15:46 51 L 16 94/52 96 11/26/23 13:27 98.5 F 85 16 139/71 95 Intake and Output 11/26/23 11/27/23 11/27/23 22:59 06:59 14:59 Intake Total 240 Balance 240 Intake: Oral 240 Other: # Voids 3 Weight 63.503 kg Patient is a young male, in no acute distress. Patient is alert awake oriented to time place and person. Speech and language functions are normal. Patient can name and repeat very well. No aphasia or dysarthria. Attention, concentration and fund of knowledge is adequate. On cranial nerve examination, pupils are equal, round and reacting to light, visual [place] are full on confrontation, with no neglect on double simultaneous stimulation. Extraocular muscles are intact with no nystagmus. Face is symm etric, tongue protrudes to the midline. Palatal elevation and sensation normal, hearing and shoulder shrug normal, facial sensation normal. On muscle strength testing, there is no pronator drift and the strength is normal in arms and legs distally and proximally. Deep tendon reflexes are symmetric 2+ all over and plantars downgoing. Sensory to touch is equal with no neglect on double simultaneous stimulation. Cerebellar function showed no ataxia for hgrpxi-no-[id number] testing. No dysdiadocho kinesia. No ataxia for dhsw-xa-wbye testing on either side. Tone and bulk of muscles normal. Gait deferred.. On general examination, there is no carotid bruit or murmur, S1-S2 audible. Chest is clear on consultation. Abdomen is soft nontender. No organomegaly, bowel sounds present. Peripheral pulses are present. No peripheral edema. Neck is supple. Results - Laboratory Findings CBC and BMP: 11/27/23 05:32 Abnormal Lab Findings: Abnormal Labs 11/27/23 05:32 BUN/Creatinine Ratio 11.78 L Calcium 8.6 L Assessment and Plan Assessment: * New onset seizures. Patient had seizure x 2 on 08/15/2023, and now have presented with 2 seizures yesterday. Patient does vape nicotine and vapes marijuana, and consumes high energy drinks. Uncertain if seizure provoked from these factors, or unprovoked. Patient denies any alcoholism. * Marijuana use Plan: * EEG evaluate for any epileptiform activity. * Patient claims he had MRI performed as an outpatient, probably not in this facility. * Patient will be started on antiepileptic medication, likely Keppra. * Patient will follow up with Dr. Matute, whom he has seen in the past. If MRI not done, then it can be done as an outpatient. * Patient informed of [place] state law of no driving unless seizure-free for 6 months, climbing ladders, operating dangerous machinery or unsupervised swimming. * Thank you for the consultation. Addendum: EEG was performed, which was normal awake and drowsy. No definitive focal, lateralized or epileptiform activity was seen. Recommend prolonged EEG as an outpatient. We will start Keppra, we will give Keppra 1000 mg IV x 1 dose followed by 500 mg twice daily. Patient to follow-up with Dr. Mtaute in 1 to 2 weeks. We discussed about possibility for lumbar puncture. Patient has no headache, no signs of infection at this time. Patient and caregiver believes that his mentation is back to normal, therefore no indication for LP. Patient was recommended to undergo MRI of the brain with and without contrast, if not performed in the past. Patient desperate to go home. Therefore he will have MRI as an outpatient, if not done in the past. Neurologically clear for discharge. Time with Patient: Greater than 30
[2023-11-27] MEDS: levETIRAcetam IV 500 MG/5 ML VIAL IVP STA (15:57)
--- NOTE | 2023-11-27 19:54 | EEG ---
ELECTROENCEPHALOGRAM REPORT PREAMBLE: This is a 23-year-old male with new onset seizures. EEG FINDINGS: This is a 21-channel digital EEG recorded with video component, utilizing 10/20 international system with referential and bipolar montages. Background consists of well developed, well regulated moderate voltage activity in 9 hertz alpha. Background is posterior dominant and is reactive to eye opening and closing. Photic driving response was not clearly seen. Drowsiness was seen with appearance of bilaterally symmetric theta frequency rhythm. Some sporadic disorganized background was seen during drowsiness with some sharply contoured waves, but was not reproducible during the rest of the study. More deeper stages of sleep were not clearly seen. No focal or generalized epileptiform activity was seen. IMPRESSION: This is probably a normal awake and drowsy EEG. Normal EEG does not rule out seizure disorder. If your suspicion for seizure is high, suggest prolonged, sleep- deprived EEG. MMJOHNNIEL / KARINAN: [id number] / MTDD
[2023-11-27] MEDS ORDERED: levETIRAcetam 500 MG TAB PO SCH (21:00)
== END 2023-11-27 17:02 | disposition left against medical advice (07) ==
LOC: EC 13:25 → INTOOBSV 15:00 → 4SSUR 15:00 → 5NMEDONC 15:26
PROVIDERS: ADMIT Family Medicine; ATTEND Family Medicine
DX: R56.9 Unspecified convulsions (principal); R41.0 Disorientation, unspecified; R61 Generalized hyperhidrosis; R51.9 Headache, unspecified; F43.9 Reaction to severe stress, unspecified; F12.90 Cannabis use, unspecified, uncomplicated; F17.210 Nicotine dependence, cigarettes, uncomplicated; F17.290 Nicotine dependence, other tobacco product, uncomplicated; Z71.6 Tobacco abuse counseling
CPT/HCPCS: 70450; 80048; 93005; 95816; 96361; 96374; 99285

== ENCOUNTER 2023-12-12 21:04 | Emergency (ER) | payer OTHER ==
[2023-12-12 21:10] VITALS: RESP 16
--- NOTE | 2023-12-12 21:29 | ED ---
Alcohol HPI - General Chief Complaint: Seizure Stated Complaint: poss seizure Time Seen by Provider: 12/12/23 21:19 Source: patient, family, RN notes reviewed, old records reviewed Mode of arrival: wheelchair Limitations: no limitations - History of Present Illness Initial Comments: This is a 23-year-old male to the ER for evaluation today. Patient [facility] for evaluation of significant alcohol intoxication suspect seizure activity with history of seizures and recent inpatient hospital admission for seizures. Patient is actively nauseous vomiting here in the ER and mildly somnolent. 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) Previous Visits for Alcohol Intoxication?: Yes Recent Trauma: Yes Associated Symptoms: nausea, vomiting Treatments Prior to Arrival: none Chronic Alcohol Use: No - Related Data Home Medications Medication Instructions Recorded Confirmed No Known Home Medications 11/26/23 11/26/23 Allergies Allergy/AdvReac Type Severity Reaction Status Date / Time gluten AdvReac Unknown Verified 12/12/23 21:11 lactose AdvReac Diarrhea Verified 12/12/23 21:11 red dye AdvReac inflammatio Verified 12/12/23 21:11 n Review of Systems ROS Statement: Those systems with pertinent positive or pertinent negative responses have been documented in the HPI. ROS Other: All systems not noted in ROS Statement are negative. Past Medical History Past Medical History: Seizure Disorder History of Any Multi-Drug Resistant Organisms: None Reported Past Surgical History: No Surgical Hx Reported Past Anesthesia/Blood Transfusion Reactions: No Reported Reaction Past Psychological History: ADD/ADHD Smoking Status: Current every day smoker, Vaper Past Alcohol Use History: None Reported Past Drug Use History: Marijuana General Exam Limitations: altered mental status, physical limitation General appearance: alert, appears intoxicated, anxious Head exam: Present: atraumatic, normocephalic, normal inspection Eye exam: Present: normal appearance, PERRL, EOMI. Absent: scleral icterus, conjunctival injection, periorbital swelling ENT exam: Present: normal exam, mucous membranes moist Neck exam: Present: normal inspection. Absent: tenderness, meningismus, lymphadenopathy Respiratory exam: Present: normal lung sounds bilaterally. Absent: respiratory distress, wheezes, rales, rhonchi, stridor Cardiovascular Exam: Present: regular rate, normal rhythm, normal heart sounds. Absent: systolic murmur, diastolic murmur, rubs, gallop, clicks GI/Abdominal exam: Present: soft, normal bowel sounds. Absent: distended, tenderness, guarding, rebound, rigid Extremities exam: Present: normal inspection, full ROM, normal capillary refill. Absent: tenderness, pedal edema, joint swelling, calf tenderness Back exam: Present: normal inspection Neurological exam: Present: alert, oriented X3, CN II-XII intact Psychiatric exam: Present: normal affect, normal mood Skin exam: Present: warm, dry, intact, normal color. Absent: rash Course Vital Signs 12/12/23 12/13/23 12/13/23 21:06 00:09 02:06 Temperature 97.8 F 96.9 F L Pulse Rate 81 67 73 Respiratory 16 16 16 Rate Blood Pressure 112/73 103/64 106/76 O2 Sat by Pulse 98 99 Oximetry - Reevaluation(s) Reevaluation #1: 12/12/23 21:51 Medical records reviewed Reevaluation #2: 12/12/23 21:51 Patient symptoms improving Patient able to ambulate without difficulty alert and awake here in the ER Reevaluation #3: Patient informed of results and questions answered Reevaluation #4: Was pt. sent in by a medical professional or institution (, PA, MORTGAGE LOAN COUNSELOR, urgent care, hospital, or senior living...) When possible be specific @ -no Did you speak to anyone other than the patient for history (EMS, parent, family, police, friend...)? What history was obtained from this source @ -no Did you review nursing and triage notes (agree or disagree)? Why? @ -agree Are old charts reviewed (outside hosp., previous admission, EMS record, old EKG, old radiological studies, urgent care reports/EKG's, senior living records)? Report findings @ -yes Differential Diagnosis (chest pain, altered mental status, abdominal pain women, abdominal pain men, vaginal bleeding, weakness, fever, dyspnea, syncope, headache, dizziness, GI bleed, back pain, seizure, CVA, palpatations, mental health, musculoskeletal)? @ -prior EKG interpreted by me (3pts min.). @ -no X-rays interpreted by me (1pt min.). @ -no CT interpreted by me (1pt min.). @ -no U/S interpreted by me (1pt. min.). @ -no What testing was considered but not performed or refused? (CT, X-rays, U/S, labs)? Why? @ -none What meds were considered but not given or refused? Why? @ -none Did you discuss the management of the patient with other professionals (professionals i.e. , PA, MORTGAGE LOAN COUNSELOR, lab, RT, psych nurse, social professionals, sales vendor, teacher, asset protection officer, rn case manager)? Give summary @ -no Was smoking cessation discussed for >3mins.? @ -no Was critical care preformed (if so, how long)? @ -no Were there social determinants of health that impacted care today? How? (Homelessness, low income, unemployed, alcoholism, drug addiction, transportation, low edu. Level, literacy, decrease access to med. care, snf, rehab)? @ -none Was there de-escalation of care discussed even if they declined (Discuss DNR or withdrawal of care, Hospice)? DNR status @ -no What co-morbidities impacted this encounter? (DM, HTN, Smoking, COPD, CAD, Cancer, CVA, ARF, Chemo, Hep., AIDS, mental health diagnosis, sleep apnea, morbid obesity)? @ -none Was patient admitted / discharged? Hospital course, mention meds given and route, prescriptions, significant lab abnormalities, going to OR and other pertinent info. @ - 23-year-old male to the ER for postictal state likely with complemented by alcohol intoxication. Patient awake alert feels comfortable going home with family Discharge alcohol intoxication Undiagnosed new problem with uncertain prognosis? @ -no Drug Therapy requiring intensive monitoring for toxicity (Heparin, Nitro, Insulin, Cardizem)? @ -no Were any procedures done? @ -no Diagnosis/symptom? @ - Acute, or Chronic, or Acute on Chronic? @ -Acute Uncomplicated (without systemic symptoms) or Complicated (systemic symptoms)? @ -Complicated Side effects of treatment? @ -no Exacerbation, Progression, or Severe Exacerbation? @ -exacerbation Poses a threat to life or bodily function? How? (Chest pain, [place], [place], pneumonia, PE, COPD, DKA, ARF, appy, cholecystitis, CVA, Diverticulitis, Homicidal, Suicidal, threat to staff... and all critical care pts) @ -yes Reevaluation #5: Differential Altered Mental Status: Hypoglycemia, DKA, hypercapnia, ETOH, overdose, CO poisoning, trauma, myxedema coma, HTN encephalopathy, infection, encephalitis, psychosis, intercranial hemorrhage, hepatic encephalopathy, meningitis, CVA, this is not meant to be an all-inclusive list Medical Decision Making - Medical Decision Making 23-year-old male to the ER for postictal state likely with complemented by alco hol intoxication. Patient awake alert feels comfortable going home with family - Lab Data Result diagrams: 12/12/23 21:46 12/12/23 21:46 Lab Results 12/12/23 12/12/23 Range/Units 21:46 21:46 WBC 6.3 (3.8-10.6) k/uL RBC 4.87 (4.30-5.90) m/uL Hgb 15.0 (13.0-17.5) gm/dL Hct 43.7 (39.0-53.0) % MCV 89.7 (80.0-100.0) fL MCH 30.8 (25.0-35.0) pg MCHC 34.3 (31.0-37.0) g/dL RDW 12.1 (11.5-15.5) % Plt Count 294 (150-450) k/uL MPV 6.8 Neutrophils % 61 % Lymphocytes % 31 % Monocytes % 5 % Eosinophils % 1 % Basophils % 1 % Neutrophils # 3.9 (1.3-7.7) k/uL Lymphocytes # 1.9 (1.0-4.8) k/uL Monocytes # 0.3 (0-1.0) k/uL Eosinophils # 0.0 (0-0.7) k/uL Basophils # 0.0 (0-0.2) k/uL Sodium 142 (137-145) mmol/L Potassium 3.8 (3.5-5.1) mmol/L Chloride 106 (98-107) mmol/L Carbon Dioxide 21 L (22-30) mmol/L Anion Gap 15 mmol/L BUN 10 (9-20) mg/dL Creatinine 0.78 (0.66-1.25) mg/dL Est GFR (CKD-EPI)AfAm >90 (>60 ml/min/1.73 sqM) Est GFR (CKD-EPI)NonAf >90 (>60 ml/min/1.73 sqM) Glucose 78 (74-99) mg/dL Calcium 9.5 (8.4-10.2) mg/dL Phosphorus 4.3 (2.5-4.5) mg/dL Magnesium 1.8 (1.6-2.3) mg/dL Total Bilirubin 0.5 (0.2-1.3) mg/dL AST 28 (17-59) U/L ALT 15 (4-49) U/L Alkaline Phosphatase 63 (38-126) U/L Total Protein 7.2 (6.3-8.2) g/dL Albumin 4.9 (3.5-5.0) g/dL Lipase 228 (23-300) U/L Serum Alcohol 126 mg/dL Disposition Clinical Impression: Alcohol intoxication, Generalized seizure Disposition: HOME SELF-CARE Condition: Fair Instructions (If sedation given, give patient instructions): Seizure/Epilepsy Discharge Instructions & Follow-Up Is patient prescribed a controlled substance at d/c from ED?: No Referrals: Curt Maurer MD [Primary Care Provider] - 1-2 days Time of Disposition: 22:40
[2023-12-12] MEDS: ONDANSETRON 4 MG/2 ML VIAL IVP STA (21:41)
[2023-12-12] MEDS: PANTOPRAZOLE 40 MG/10 ML VIAL IV STA (21:41)
[2023-12-12] MEDS: LORazepam 2 MG/ML INJ IV STA (21:42)
[2023-12-12] MEDS: SODIUM CHLORIDE 0.9% 500 ML 500 ML IV STA (21:42)
[2023-12-12] MEDS: SODIUM CHLORIDE 0.9% 1,000 ML IV STA (21:42)
[2023-12-12 22:17] LABS: Basophils % (A) 1 %; Eosinophils % (A) 1 %; HCT 43.7 % (39.0-53.0); Lymphocytes # (A) 1.9 k/uL (1.0-4.8); Lymphocytes % (A) 31 %; MCH 30.8 pg (25.0-35.0); MCHC 34.3 g/dL (31.0-37.0); MCV 89.7 fL (80.0-100.0); Mean Platelet Volume 6.8; Monocytes # (A) 0.3 k/uL (0-1.0); Monocytes % (A) 5 %; Neutrophils # (A) 3.9 k/uL (1.3-7.7); Neutrophils % (A) 61 %; Platelet Count 294 k/uL (150-450); RBC 4.87 m/uL (4.30-5.90); RDW 12.1 % (11.5-15.5); WBC 6.3 k/uL (3.8-10.6)
[2023-12-12 22:40] LABS: ALT 15 U/L (4-49); AST 28 U/L (17-59); African American GFR (CKD) >90 (>60 ml/min/1.73 sqM); Albumin 4.9 g/dL (3.5-5.0); Alkaline Phosphatase 63 U/L (38-126); Anion Gap 15 mmol/L; Blood Urea Nitrogen 10 mg/dL (9-20); Calcium 9.5 mg/dL (8.4-10.2); Carbon Dioxide 21 mmol/L (22-30); Chloride 106 mmol/L (98-107); Glucose 78 mg/dL (74-99); Lipase 228 U/L (23-300); Magnesium 1.8 mg/dL (1.6-2.3); Non-African American GFR(CKD) >90 (>60 ml/min/1.73 sqM); Phosphorus 4.3 mg/dL (2.5-4.5); Potassium 3.8 mmol/L (3.5-5.1); Sodium 142 mmol/L (137-145); Total Bilirubin 0.5 mg/dL (0.2-1.3); Total Protein 7.2 g/dL (6.3-8.2)
[2023-12-12 22:45] LABS: Alcohol 126 mg/dL
[2023-12-13 02:08] VITALS: BP 106/76; PULSE 73; TEMP 96.9
== END 2023-12-13 02:16 | disposition home or self-care (01) ==
LOC: EC 21:04
CPT/HCPCS: 36415; 80053; 80320; 83690; 83735; 84100; 85025; 96361; 96374; 96375; 99283

== ENCOUNTER 2024-01-27 16:12 | Emergency (ER) | payer OTHER ==
[2024-01-27] MEDS: SODIUM CHLORIDE 0.9% 1,000 ML IV STA (16:37)
[2024-01-27 16:48] LABS: Basophils % (A) 0 %; Eosinophils # (A) 0.2 k/uL (0-0.7); Eosinophils % (A) 2 %; HGB 15.9 gm/dL (13.0-17.5); Lymphocytes # (A) 1.9 k/uL (1.0-4.8); Lymphocytes % (A) 23 %; MCH 30.7 pg (25.0-35.0); MCHC 33.9 g/dL (31.0-37.0); MCV 90.6 fL (80.0-100.0); Mean Platelet Volume 6.7; Monocytes # (A) 0.4 k/uL (0-1.0); Monocytes % (A) 5 %; Neutrophils # (A) 5.6 k/uL (1.3-7.7); Neutrophils % (A) 68 %; Platelet Count 275 k/uL (150-450); RBC 5.19 m/uL (4.30-5.90); WBC 8.3 k/uL (3.8-10.6)
[2024-01-27 16:53] LABS: Partial Thromboplastin Time 24.2 sec (22.0-30.0); Prothrombin Time 11.3 sec (10.0-12.5)
[2024-01-27 16:54] LABS: ALT 17 U/L (4-49); AST 30 U/L (17-59); African American GFR (CKD) >90 (>60 ml/min/1.73 sqM); Albumin 4.9 g/dL (3.5-5.0); Alcohol <10 mg/dL; Alkaline Phosphatase 77 U/L (38-126); Anion Gap 11 mmol/L; Blood Urea Nitrogen 14 mg/dL (9-20); Calcium 9.2 mg/dL (8.4-10.2); Carbon Dioxide 21 mmol/L (22-30); Chloride 107 mmol/L (98-107); Glucose 96 mg/dL (74-99); Magnesium 1.9 mg/dL (1.6-2.3); Non-African American GFR(CKD) >90 (>60 ml/min/1.73 sqM); Phosphorus 3.1 mg/dL (2.5-4.5); Potassium 3.7 mmol/L (3.5-5.1); Sodium 139 mmol/L (137-145); Total Bilirubin 0.6 mg/dL (0.2-1.3); Total Protein 7.4 g/dL (6.3-8.2)
[2024-01-27] MEDS: LORazepam 2 MG/ML INJ IV STA (16:57)
[2024-01-27] MEDS: MORPHINE SULFATE 4 MG/ML SYRINGE IV STA (17:01)
--- NOTE | 2024-01-27 17:01 | ED ---
Seizure HPI - General Chief Complaint: Fall Stated Complaint: Seizure, fall Time Seen by Provider: 01/27/24 16:21 Source: patient, EMS, RN notes reviewed, old records reviewed Mode of arrival: EMS Limitations: no limitations - History of Present Illness Initial Comments: This is a 23-year-old male to the ER for evaluation today. Patient presents today for evaluation of a seizure that led to a fall off of the deck or a porch on the ground grass ground patient does have pain to the back of his head. Patient has not been taking seizure medications as prescribed which he states because he was out of medication. Patient has no complaints currently aside from back of the head and headache pain MD Complaint: seizure -: minutes(s) Description of Episode: loss of consciousness, tonic-clonic movement -: second(s) Witnessed: yes - by bystander Seizure History: known seizure disorder Place: home Possible Precipitating Event: head injury Associated Symptoms: denies other symptoms - Related Data Previous Rx's Medication Instructions Recorded levETIRAcetam [Keppra] 500 mg PO Q12HR #60 tab 01/27/24 Allergies Allergy/AdvReac Type Severity Reaction Status Date / Time gluten AdvReac Unknown Verified 12/12/23 21:11 lactose AdvReac Diarrhea Verified 12/12/23 21:11 red dye AdvReac inflammatio Verified 12/12/23 21:11 n Review of Systems ROS Statement: Those systems with pertinent positive or pertinent negative responses have been documented in the HPI. ROS Other: All systems not noted in ROS Statement are negative. Past Medical History Past Medical History: Seizure Disorder History of Any Multi-Drug Resistant Organisms: None Reported Past Surgical History: No Surgical Hx Reported Past Anesthesia/Blood Transfusion Reactions: No Reported Reaction Past Psychological History: ADD/ADHD Smoking Status: Current every day smoker, Vaper Past Alcohol Use History: None Reported Past Drug Use History: Marijuana General Exam Limitations: no limitations General appearance: alert, in no apparent distress Head exam: Present: atraumatic, normocephalic, normal inspection Eye exam: Present: normal appearance, PERRL, EOMI. Absent: scleral icterus, conjunctival injection, periorbital swelling ENT exam: Present: normal exam, mucous membranes moist Neck exam: Present: normal inspection. Absent: tenderness, meningismus, lymphadenopathy Respiratory exam: Present: normal lung sounds bilaterally. Absent: respiratory distress, wheezes, rales, rhonchi, stridor Cardiovascular Exam: Present: regular rate, normal rhythm, normal heart sounds. Absent: systolic murmur, diastolic murmur, rubs, gallop, clicks GI/Abdominal exam: Present: soft, normal bowel sounds. Absent: distended, tenderness, guarding, rebound, rigid Extremities exam: Present: normal inspection, full ROM, normal capillary refill. Absent: tenderness, pedal edema, joint swelling, calf tenderness Back exam: Present: normal inspection Neurological exam: Present: alert, oriented X3, CN II-XII intact Psychiatric exam: Present: normal affect, normal mood Skin exam: Present: warm, dry, intact, normal color. Absent: rash Course Vital Signs 01/27/24 01/27/24 01/27/24 16:14 17:04 17:53 Temperature 98.8 F 98.2 F Pulse Rate 78 76 63 Respiratory 19 17 17 Rate Blood Pressure 106/66 112/68 113/56 O2 Sat by Pulse 97 97 97 Oximetry - Reevaluation(s) Reevaluation #1: 01/27/24 17:01 Medical records reviewed Reevaluation #2: 01/27/24 18:10 Patient has no recurrent seizure here in the ER Reevaluation #3: 01/27/24 18:11 Patient informed of results and questions answered Reevaluation #4: Was pt. sent in by a medical professional or institution ([facility], [facility], urgent care, hospital, or [facility]...) When possible be specific @ -no Did you speak to anyone other than the patient for history (EMS, parent, family, police, friend...)? What history was obtained from this source @ -no Did you review nursing and triage notes (agree or disagree)? Why? @ -agree Are old charts reviewed (outside hosp., previous admission, EMS record, old EKG, old radiological studies, urgent care reports/EKG's, [facility] records)? Report findings @ -yes Differential Diagnosis (chest pain, altered mental status, abdominal pain women, abdominal pain men, vaginal bleeding, weakness, fever, dyspnea, syncope, headache, dizziness, GI bleed, back pain, seizure, CVA, palpatations, mental health, musculoskeletal)? @ -prior EKG interpreted by me (3pts min.). @ -yes X-rays interpreted by me (1pt min.). @ -no CT interpreted by me (1pt min.). @ -yes negative for acute disease U/S interpreted by me (1pt. min.). @ -no What testing was considered but not performed or refused? (CT, X-rays, U/S, labs)? Why? @ -none What meds were considered but not given or refused? Why? @ -none Did you discuss the management of the patient with other professionals (professionals i.e. , PA, [facility], lab, RT, psych nurse, drug abuse social worker, lathe setup operator, teacher, civil preparedness officer, caser in)? Give summary @ -no Was smoking cessation discussed for >3mins.? @ -no Was critical care preformed (if so, how long)? @ -no Were there social determinants of health that impacted care today? How? (Homelessness, low income, unemployed, alcoholism, drug addiction, tra nsportation, low edu. Level, literacy, decrease access to med. care, shelter, rehab)? @ -none Was there de-escalation of care discussed even if they declined (Discuss DNR or withdrawal of care, Hospice)? DNR status @ -no What co-morbidities impacted this encounter? (DM, HTN, Smoking, COPD, CAD, Cance r, CVA, ARF, Chemo, Hep., AIDS, mental health diagnosis, sleep apnea, morbid obesity)? @ -none Was patient admitted / discharged? Hospital course, mention meds given and route, prescriptions, significant lab abnormalities, going to OR and other pertinent info. @ - 23 male to ER for evaluation of seizure activity which resulted in fall and head injury. CT scan is negative testing is normal patient can be discharged home Discharge Undiagnosed new problem with uncertain prognosis? @ -no Drug Therapy requiring intensive monitoring for toxicity (Heparin, Nitro, Insulin, Cardizem)? @ -no Were any procedures done? @ -no Diagnosis/symptom? @ -Recurrent seizure Acute, or Chronic, or Acute on Chronic? @ -Acute Uncomplicated (without systemic symptoms) or Complicated (systemic symptoms)? @ -Complicated Side effects of treatment? @ -no Exacerbation, Progression, or Severe Exacerbation? @ -exacerbation Poses a threat to life or bodily function? How? (Chest pain, [place], [place], pneumonia, PE, COPD, DKA, ARF, appy, cholecystitis, CVA, Diverticulitis, Homicidal, Suicidal, threat to staff... and all critical care pts) @ -yes seizure activity Reevaluation #5: Differential Seizure: Recurrent seizure disorder, febrile seizure, alcohol withdrawal, stimulants, meningitis, encephalitis, intercranial hemorrhage, intracranial tumor, stroke, eclampsia, thyrotoxicosis, hypocalcemia, hyponatremia, hypernatremia, hypomagnesemia, psychogenic, this is not meant to be an all-inclusive list. Medical Decision Making - Medical Decision Making 23 male to ER for evaluation of seizure activity which resulted in fall and head injury. CT scan is negative testing is normal patient can be discharged home - Lab Data Result diagrams: 01/27/24 16:36 01/27/24 16:36 Lab Results 01/27/24 01/27/24 01/27/24 Range/Units 16:36 16:36 16:36 WBC 8.3 (3.8-10.6) k/uL RBC 5.19 (4.30-5.90) m/uL Hgb 15.9 (13.0-17.5) gm/dL Hct 47.0 (39.0-53.0) % MCV 90.6 (80.0-100.0) fL MCH 30.7 (25.0-35.0) pg MCHC 33.9 (31.0-37.0) g/dL RDW 12.0 (11.5-15.5) % Plt Count 275 (150-450) k/uL MPV 6.7 Neutrophils % 68 % Lymphocytes % 23 % Monocytes % 5 % Eosinophils % 2 % Basophils % 0 % Neutrophils # 5.6 (1.3-7.7) k/uL Lymphocytes # 1.9 (1.0-4.8) k/uL Monocytes # 0.4 (0-1.0) k/uL Eosinophils # 0.2 (0-0.7) k/uL Basophils # 0.0 (0-0.2) k/uL PT 11.3 (10.0-12.5) sec INR 1.0 (<1.2) APTT 24.2 (22.0-30.0) sec Sodium 139 (137-145) mmol/L Potassium 3.7 (3.5-5.1) mmol/L Chloride 107 (98-107) mmol/L Carbon Dioxide 21 L (22-30) mmol/L Anion Gap 11 mmol/L BUN 14 (9-20) mg/dL Creatinine 0.91 (0.66-1.25) mg/dL Est GFR (CKD-EPI)AfAm >90 (>60 ml/min/1.73 sqM) Est GFR (CKD-EPI)NonAf >90 (>60 ml/min/1.73 sqM) Glucose 96 (74-99) mg/dL Calcium 9.2 (8.4-10.2) mg/dL Phosphorus 3.1 (2.5-4.5) mg/dL Magnesium 1.9 (1.6-2.3) mg/dL Total Bilirubin 0.6 (0.2-1.3) mg/dL AST 30 (17-59) U/L ALT 17 (4-49) U/L Alkaline Phosphatase 77 (38-126) U/L Troponin I (0.000-0.034) ng/mL Total Protein 7.4 (6.3-8.2) g/dL Albumin 4.9 (3.5-5.0) g/dL Serum Alcohol <10 mg/dL 01/27/24 Range/Units 16:36 WBC (3.8-10.6) k/uL RBC (4.30-5.90) m/uL Hgb (13.0-17.5) gm/dL Hct (39.0-53.0) % MCV (80.0-100.0) fL MCH (25.0-35.0) pg MCHC (31.0-37.0) g/dL RDW (11.5-15.5) % Plt Count (150-450) k/uL MPV Neutrophils % % Lymphocytes % % Monocytes % % Eosinophils % % Basophils % % Neutrophils # (1.3-7.7) k/uL Lymphocytes # (1.0-4.8) k/uL Monocytes # (0-1.0) k/uL Eosinophils # (0-0.7) k/uL Basophils # (0-0.2) k/uL PT (10.0-12.5) sec INR (<1.2) APTT (22.0-30.0) sec Sodium (137-145) mmol/L Potassium (3.5-5.1) mmol/L Chloride (98-107) mmol/L Carbon Dioxide (22-30) mmol/L Anion Gap mmol/L BUN (9-20) mg/dL Creatinine (0.66-1.25) mg/dL Est GFR (CKD-EPI)AfAm (>60 ml/min/1.73 sqM) Est GFR (CKD-EPI)NonAf (>60 ml/min/1.73 sqM) Glucose (74-99) mg/dL Calcium (8.4-10.2) mg/dL Phosphorus (2.5-4.5) mg/dL Magnesium (1.6-2.3) mg/dL Total Bilirubin (0.2-1.3) mg/dL AST (17-59) U/L ALT (4-49) U/L Alkaline Phosphatase (38-126) U/L Troponin I <0.012 (0.000-0.034) ng/mL Total Protein (6.3-8.2) g/dL Albumin (3.5-5.0) g/dL Serum Alcohol mg/dL - EKG Data -: EKG Interpreted by Me (EKG is sinus 71 NE 146 QRS 102 QTc 438) - Radiology Data Radiology results: report reviewed (CT brain C-spine negative for acute disease), image reviewed Disposition Clinical Impression: Fall, Recurrent seizures, Head injury Disposition: HOME SELF-CARE Condition: Good Instructions (If sedation given, give patient instructions): Head Injury (ED), Recurrent Seizures in Adults (ED) Prescriptions: levETIRAcetam [Keppra] 500 mg PO Q12HR #60 tab Is patient prescribed a controlled substance at d/c from ED?: No Referrals: Curt Maurer MD [Primary Care Provider] - 1-2 days Time of Disposition: 18:00
[2024-01-27] MEDS: levETIRAcetam IV 500 MG/5 ML VIAL IVP STA (17:04)
[2024-01-27 17:06] VITALS: RESP 17
[2024-01-27 17:59] VITALS: BP 113/56; PULSE 63; TEMP 98.2
--- NOTE | 2024-01-27 18:00 | CT ---
EXAMINATION TYPE: CT brain cspine wo con DATE OF EXAM: 01/27/2024 COMPARISON: 11/26/2023 HISTORY: Fall/Seizure CT DLP: 1292.7 mGycm, Automated exposure control for dose reduction was used. CONTRAST: Patient injected with 0 mL of Isovue 300. CT of the brain is performed utilizing 3 mm thick sections through the posterior fossa and 3 mm thick sections through the remaining calvarium. Study is performed within 24 hours of arrival to the hospital. No abnormal hyperdensity is present to suggest an acute intracranial hemorrhage. No mass lesion is evident. No acute infarcts are evident. Ventricles and sulci are appropriate for the patient age. Paranasal sinuses and mastoid air cells within the [id number] are clear. IMPRESSIONS: 1. No acute intracranial process. Follow-up MRI can be performed as clinically indicated. 2. No significant interval change from comparison study. CT cervical spine. COMPARISON: None CT of the cervical spine is performed in the axial plane at 2 mm thick sections. Reconstructed image s in the coronal, and sagittal plane are reviewed on the computer. No acute fractures are evident. Vertebral body alignment is normal. Disc heights are preserved. Vertebral body heights are preserved. No spinal canal stenosis is evident. No neural foraminal stenosis is evident. IMPRESSION: 1. Normal CT cervical spine. [facility], Workstation: [facility], 01/27/2024 5:57 PM
== END 2024-01-27 18:20 | disposition home or self-care (01) ==
LOC: EC 16:12
DX: S09.90XA Unspecified injury of head, initial encounter (principal); R56.9 Unspecified convulsions; F17.290 Nicotine dependence, other tobacco product, uncomplicated; Z91.011 Allergy to milk products; Z91.018 Allergy to other foods; Z91.041 Radiographic dye allergy status; W19.XXXA Unspecified fall, initial encounter; Y92.007 Garden or yard of unspecified non-institutional (private) residence as the place of occurrence of the external cause
CPT/HCPCS: 99285; 96374; 96361; 36415; 93005; 80053; 83735; 84100; 84484; 85025; 85610; 85730; 72125; 70450; 96375 ×2; G0480; J2060; J2270; J1953; 80320

== ENCOUNTER 2024-04-03 06:54 | Emergency (ER) | payer OTHER ==
--- NOTE | 2024-04-03 07:20 | ED ---
Seizure HPI - General Chief Complaint: Seizure Stated Complaint: Seizure Time Seen by Provider: 04/03/24 06:57 Source: patient, family, RN notes reviewed Mode of arrival: wheelchair Limitations: no limitations - History of Present Illness Initial Comments: This is a 24-year-old male who presents to the emergency department for a seizure. Patient was just diagnosed with a seizure disorder in July of last year. He had initially followed up with neurology, however they wanted to do a bunch of additional testing and due to insurance issues he has not yet been able to complete this. He has had CT scans of the brain and an EEG which have all been normal. He was initially having seizures several once every couple of months, however over the last week he seems to be having them almost every day. Denies any known triggers. He typically has these in his sleep, but when he is awake he sometimes gets an aura before a seizure. States that when he gets an aura, he just feels strange, but is unsure how to describe it. Denies sustaining any injuries during these recent seizures. Currently complains of a headache and nausea, which is how he feels after every seizure. He is on Keppra 500 mg twice daily and denies any missed doses. His most recent seizure was at 5:30 AM today. He did have one yesterday as well. His mother witnessed these and states that they lasted for about a minute. He was postictal for around 10 minutes afterwards. Complaint: seizure - Related Data Previous Rx's Medication Instructions Recorded levETIRAcetam [Keppra] 500 mg PO Q12HR #60 tab 01/27/24 diazePAM [Valtoco] 15 mg NASAL ONCE PRN #2 each 04/03/24 levETIRAcetam [Keppra] 750 mg PO Q12H #60 tab 04/03/24 Allergies Allergy/AdvReac Type Severity Reaction Status Date / Time gluten Allergy Unknown Verified 04/03/24 09:07 lactose AdvReac Diarrhea Verified 04/03/24 09:07 red dye AdvReac inflammatio Verified 04/03/24 09:07 n Review of Systems ROS Statement: Those systems with pertinent positive or pertinent negative responses have been documented in the HPI. ROS Other: All systems not noted in ROS Statement are negative. Past Medical History Past Medical History: Seizure Disorder History of Any Multi-Drug Resistant Organisms: None Reported Past Surgical History: No Surgical Hx Reported Past Anesthesia/Blood Transfusion Reactions: No Reported Reaction Past Psychological History: ADD/ADHD Smoking Status: Current every day smoker, Vaper Past Alcohol Use History: None Reported Past Drug Use History: Marijuana General Exam Limitations: no limitations General appearance: alert, in no apparent distress Head exam: Present: atraumatic, normocephalic, normal inspection Eye exam: Present: normal appearance, PERRL, EOMI. Absent: scleral icterus, conjunctival injection, periorbital swelling Respiratory exam: Present: normal lung sounds bilaterally. Absent: respiratory distress, wheezes, rales, rhonchi, stridor Neurological exam: Present: alert, oriented X3, CN II-XII intact Psychiatric exam: Present: normal affect, normal mood Skin exam: Present: warm, dry, intact, normal color. Absent: rash Course Vital Signs 04/03/24 04/03/24 06:55 08:23 Temperature 97.4 F L Pulse Rate 70 58 L Respiratory 18 18 Rate Blood Pressure 115/78 105/64 O2 Sat by Pulse 100 96 Oximetry Medical Decision Making - Medical Decision Making This is a 24-year-old male who presents to the emergency department for a seizure. Was pt. sent in by a medical professional or institution? @ -No Did you speak to anyone other than the patient for history? @ -This mother provided the majority of the history. Did you review nursing and triage notes? @ -Yes, and I agree, it is accurate with regards to the patient's symptoms. Were old charts reviewed? @ -No Differential Diagnosis? @ -Differential Seizure: Recurrent seizure disorder, febrile seizure, alcohol withdrawal, stimulants, meningitis, encephalitis, intercranial hemorrhage, intracranial tumor, stroke, eclampsia, thyrotoxicosis, hypocalcemia, hyponatremia, hypernatremia, hypomagnesemia, psychogenic, this is not meant to be an all-inclusive list. EKG interpreted by me (3pts min.)? @ -EKG interpreted by me demonstrating the following: Sinus bradycardia. Ventricular rate 56 bpm, WV interval 137 ms, QRS duration 106 ms, QTc 409 ms. X-rays interpreted by me (1pt min.)? @ -Not obtained CT interpreted by me (1pt min.)? @ -Not obtained U/S interpreted by me (1pt. min.)? @ -Not obtained What testing was considered but not performed? (CT, X-rays, U/S, labs)? Why? @ -None What meds were considered but not given? Why? @ -None Did you discuss the management of the patient with other professionals? @ -No Did you reconcile home meds? @ -No Was smoking cessation discussed for >3mins.? @ -No Was critical care preformed (if so, how long)? @ -No Were there social determinants of health that impacted care today? How? (Homelessness, low income, unemployed, alcoholism, drug addiction, transportation, low edu. Level, literacy, decrease access to med. care, alf, rehab)? @ -No Was there de-escalation of care discussed even if they declined? (Discuss DNR or withdrawal of care, Hospice)? @ -No What co-morbidities impacted this encounter? (DM, HTN, Smoking, COPD, CAD, Cancer, CVA, Hep., AIDS, mental health diagnosis, sleep apnea, morbid obesity)? @ -Seizure disorder Was patient admitted / discharged? @ -Discharged. Lab work unremarkable. Lactic acid negative. Keppra level was ordered, but pending at the time of discharge. He did have blood work done with his PCP a couple of days ago. We contacted their office to try to get the results, however they had also not gotten the results back yet. Discussed that he is on the lowest dosage of Keppra and this can be increased. Keppra dosage increased from 500 mg twice daily to 750 mg twice daily to see if this reduces the seizures. In the emergency department he was given a liter bolus of IV fluids as well as medication to help with his pain and nausea. He was also given a loading dose of Keppra, 1000 mg. Advised he make sure he is compliant with his medication. Intranasal diazepam prescribed as well to be used as needed for a rescue medication. Advised he make sure he becomes established with a neurologist for ongoing care and further testing if needed. Patient discharged home in stable condition. Case discussed with ED attending Dr. Calderón. Undiagnosed new problem with uncertain prognosis? @ -None Drug Therapy requiring intensive monitoring for toxicity (Heparin, Nitro, Insulin, Cardizem)? @ -None Were any procedures done? @ -None Diagnosis/symptom? @ -Generalized seizure Acute, or Chronic, or Acute on Chronic? @ -Acute Uncomplicated (without systemic symptoms) or Complicated (systemic symptoms)? @ -Uncomplicated Side effects of treatment? @ -None Exacerbation, Progression, or Severe Exacerbation] @ -Not applicable Poses a threat to life or bodily function? @ -Unlikely - Lab Data Result diagrams: 04/03/24 07:19 04/03/24 07:19 Lab Results 04/03/24 04/03/24 04/03/24 Range/Units 07:19 07:19 07:19 WBC 6.0 (3.8-10.6) k/uL RBC 4.76 (4.30-5.90) m/uL Hgb 14.9 (13.0-17.5) gm/dL Hct 43.2 (39.0-53.0) % MCV 90.7 (80.0-100.0) fL MCH 31.3 (25.0-35.0) pg MCHC 34.5 (31.0-37.0) g/dL RDW 11.9 (11.5-15.5) % Plt Count 245 (150-450) k/uL MPV 6.6 Neutrophils % 60 % Lymphocytes % 24 % Monocytes % 6 % Eosinophils % 8 % Basophils % 1 % Neutrophils # 3.6 (1.3-7.7) k/uL Lymphocytes # 1.4 (1.0-4.8) k/uL Monocytes # 0.4 (0-1.0) k/uL Eosinophils # 0.5 (0-0.7) k/uL Basophils # 0.0 (0-0.2) k/uL Sodium 139 (137-145) mmol/L Potassium 4.2 (3.5-5.1) mmol/L Chloride 104 (98-107) mmol/L Carbon Dioxide 27 (22-30) mmol/L Anion Gap 8 mmol/L BUN 13 (9-20) mg/dL Creatinine 0.96 (0.66-1.25) mg/dL Est GFR (CKD-EPI)AfAm >90 (>60 ml/min/1.73 sqM) Est GFR (CKD-EPI)NonAf >90 (>60 ml/min/1.73 sqM) Glucose 96 (74-99) mg/dL Plasma Lactic Acid Francois 1.6 (0.7-2.0) mmol/L Calcium 9.4 (8.4-10.2) mg/dL Magnesium 2.1 (1.6-2.3) mg/dL Total Bilirubin 0.5 (0.2-1.3) mg/dL AST 29 (17-59) U/L ALT 19 (4-49) U/L Alkaline Phosphatase 70 (38-126) U/L Total Protein 6.8 (6.3-8.2) g/dL Albumin 4.6 (3.5-5.0) g/dL Serum Alcohol <10 mg/dL Disposition Clinical Impression: Generalized seizure Disposition: HOME SELF-CARE Instructions (If sedation given, give patient instructions): Seizure/Epilepsy Discharge Instructions & Follow-Up, Diazepam (Into the nose) Additional Instructions: Return to the emergency department with any new, worsening, or concerning symptoms. Increase the Keppra dosage to 750 mg twice daily. Review the information provided on how to use the intranasal diazepam. This is a rescue medication that can be given if you feel a seizure coming on or as soon as it starts. Make sure you follow-up with neurology for further evaluation and with your primary care provider. Prescriptions: levETIRAcetam [Keppra] 750 mg PO Q12H #60 tab diazePAM [Valtoco] 15 mg NASAL ONCE PRN #2 each PRN Reason: Seizures Is patient prescribed a controlled substance at d/c from ED?: Yes When asked, does pt state using other controlled substances?: No If prescribed controlled substance>3 days was MAPS reviewed?: Prescribed <3 Days Referrals: Curt Maurer MD [Primary Care Provider] - 1-2 days Alcon Wong MD [Medical Doctor] - 1-2 days Cheikh Ashford DO [STAFF PHYSICIAN] - 1-2 days Time of Disposition: 09:26
[2024-04-03] MEDS: SODIUM CHLORIDE 0.9% 1,000 ML IV STA (07:32)
[2024-04-03] MEDS: levETIRAcetam IV 500 MG/5 ML VIAL IVP STA (07:32)
[2024-04-03 07:35] LABS: Basophils % (A) 1 %; Eosinophils # (A) 0.5 k/uL (0-0.7); Eosinophils % (A) 8 %; HCT 43.2 % (39.0-53.0); HGB 14.9 gm/dL (13.0-17.5); Lymphocytes # (A) 1.4 k/uL (1.0-4.8); Lymphocytes % (A) 24 %; MCH 31.3 pg (25.0-35.0); MCHC 34.5 g/dL (31.0-37.0); MCV 90.7 fL (80.0-100.0); Mean Platelet Volume 6.6; Monocytes # (A) 0.4 k/uL (0-1.0); Monocytes % (A) 6 %; Neutrophils # (A) 3.6 k/uL (1.3-7.7); Neutrophils % (A) 60 %; Platelet Count 245 k/uL (150-450); RBC 4.76 m/uL (4.30-5.90); RDW 11.9 % (11.5-15.5)
[2024-04-03] MEDS: ONDANSETRON 4 MG/2 ML VIAL IVP STA (07:36)
[2024-04-03] MEDS: KETOROLAC 15 MG/ML 1 ML VIAL IVP STA ×2 (07:36→08:26)
[2024-04-03 08:16] LABS: ALT 19 U/L (4-49); AST 29 U/L (17-59); African American GFR (CKD) >90 (>60 ml/min/1.73 sqM); Albumin 4.6 g/dL (3.5-5.0); Alcohol <10 mg/dL; Alkaline Phosphatase 70 U/L (38-126); Anion Gap 8 mmol/L; Blood Urea Nitrogen 13 mg/dL (9-20); Calcium 9.4 mg/dL (8.4-10.2); Carbon Dioxide 27 mmol/L (22-30); Chloride 104 mmol/L (98-107); Glucose 96 mg/dL (74-99); Magnesium 2.1 mg/dL (1.6-2.3); Non-African American GFR(CKD) >90 (>60 ml/min/1.73 sqM); Potassium 4.2 mmol/L (3.5-5.1); Sodium 139 mmol/L (137-145); Total Bilirubin 0.5 mg/dL (0.2-1.3); Total Protein 6.8 g/dL (6.3-8.2)
[2024-04-03] MEDS: ACETAMINOPHEN TAB 500 MG TAB PO STA (08:22)
[2024-04-03] MEDS: HYDROmorphone 0.5 MG/0.5 ML SYRINGE IVP STA (08:22)
[2024-04-03] MEDS: ACET/COD 300 MG/30 MG STARTER PACK 6 TAB BTL PO STA (09:30)
[2024-04-03] MEDS: IBUPROFEN 600 MG STARTER PACK 4 TAB BTL PO STA (09:30)
[2024-04-03] MEDS: ONDANSETRON 4 MG ODT STARTER PACK 2 TAB BTL PO STA (09:30)
[2024-04-03 09:34] VITALS: BP 104/68; PULSE 71; RESP 16; TEMP 98.1
== END 2024-04-03 09:36 | disposition home or self-care (01) ==
LOC: EC 06:54
DX: G40.409 Other generalized epilepsy and epileptic syndromes, not intractable, without status epilepticus (principal); F17.290 Nicotine dependence, other tobacco product, uncomplicated; Z91.018 Allergy to other foods
CPT/HCPCS: 36415; 93005; 80053; 80177; 83605; 83735; 85025; 99284; 96374; 96375; 96361; G0480; J2405; J1953; J1885; S0119; J1171; 80320

== ENCOUNTER → 2024-04-10 | Outpatient (CLI) | payer OTHER | END | disposition home or self-care (01) | LOC: LABWHC1 14:39 | PROVIDERS: ATTEND Family Medicine | DX: R56.9 Unspecified convulsions (principal) | CPT/HCPCS: 36415; 80177 ==

== ENCOUNTER 2024-04-21 12:36 | Inpatient (IN) | payer MEDICAID, OTHER ==
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
[2024-04-21] MEDS ORDERED: ACETAMINOPHEN TAB 325 MG TAB PO PRN (16:26)
[2024-04-21] MEDS ORDERED: IBUPROFEN 600 MG TAB PO PRN (16:26)
[2024-04-21] MEDS ORDERED: MAG HYDROX/AL HYDROX/SIMETH 355 ML BOTTLE PO PRN (16:26)
[2024-04-21] MEDS ORDERED: LORazepam 2 MG/ML INJ IM PRN (16:26)
[2024-04-21] MEDS ORDERED: HALOPERIDOL LACTATE 5 MG/ML 1 ML VIAL IM PRN (16:26)
[2024-04-21] MEDS ORDERED: MAGNESIUM HYDROXIDE 2,400 MG/30 ML CUP PO PRN (16:26)
[2024-04-21] MEDS: LORazepam 1 MG TAB PO PRN (16:41)
[2024-04-21] MEDS: haloperidoL 5 MG TAB PO PRN (16:41)
[2024-04-21] MEDS: NICOTINE 14MG/24HR PATCH TRANSDERM STA (18:13)
[2024-04-22] MEDS: NICOTINE 14MG/24HR PATCH TRANSDERM SCH (04:03)
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
[2024-04-22] MEDS: risperiDONE 0.5 MG TAB PO SCH (11:35)
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
[2024-04-22] MEDS: NICOTINE GUM (POLACRILEX) 2 MG GUM BUCCAL PRN (16:41)
[2024-04-23 10:09] LABS: Basophils % (A) 1 %; Eosinophils # (A) 0.1 k/uL (0-0.7); Eosinophils % (A) 1 %; HCT 47.7 % (39.0-53.0); HGB 16.2 gm/dL (13.0-17.5); Lymphocytes # (A) 1.4 k/uL (1.0-4.8); Lymphocytes % (A) 23 %; MCH 31.1 pg (25.0-35.0); MCHC 33.9 g/dL (31.0-37.0); MCV 91.6 fL (80.0-100.0); Mean Platelet Volume 6.9; Monocytes # (A) 0.5 k/uL (0-1.0); Monocytes % (A) 7 %; Neutrophils # (A) 4.2 k/uL (1.3-7.7); Neutrophils % (A) 67 %; Platelet Count 270 k/uL (150-450); RBC 5.21 m/uL (4.30-5.90); RDW 11.7 % (11.5-15.5); WBC 6.3 k/uL (3.8-10.6)
[2024-04-23 10:23] LABS: ALT 19 U/L (4-49); AST 33 U/L (17-59); African American GFR (CKD) >90 (>60 ml/min/1.73 sqM); Albumin 5.2 g/dL (3.5-5.0); Alkaline Phosphatase 66 U/L (38-126); Anion Gap 14 mmol/L; Bilirubin,Unconjugated 0.9 mg/dL (0.0-1.1); Blood Urea Nitrogen 11 mg/dL (9-20); Calcium 10.1 mg/dL (8.4-10.2); Carbon Dioxide 24 mmol/L (22-30); Chloride 100 mmol/L (98-107); Glucose 188 mg/dL (74-99); Non-African American GFR(CKD) >90 (>60 ml/min/1.73 sqM); Potassium 4.6 mmol/L (3.5-5.1); Sodium 138 mmol/L (137-145); Total Bilirubin 0.9 mg/dL (0.2-1.3); Total Protein 7.8 g/dL (6.3-8.2)
--- NOTE | 2024-04-23 10:38 | P.PN ---
Progress Note - Text Progress Note Date: 04/23/24 Interval History: Patient was seen in bed and was directable and agreeable to speak with automobile service writer in the room. He states feeling "sleepy" due to not sleeping well. He states he forgot to take as needed trazodone last night however he does not wish to have this scheduled. He reports some unsteadiness on his feet but was encouraged to increase his fluid intake. He claims that he spoke to his family and things are better between them today. He was encouraged to attend groups however he states having social anxiety and is not a social person at baseline. At this time patient denies any suicidal or homicidal ideations, intent or plan. Patient denies any auditory, visual hallucinations and denies any paranoia or delusions. Patient denies any side effects from the medications and has been compliant with meds. Mental Status Exam: General Appearance: Patient appears to be stated age is alert, directable, and cooperative. Patient has poor grooming Behavior: Patient is calmly seated without any agitated behavior. Speech: Patient's speech is fluent and nonpressured. Mood/Affect: Mood is improving mildly, affect is congruent and blunted but reactive. Suicidality/Homicidality: Patient denies having any suicidal or homicidal ideation intent or plan. Perceptions: Patient denies any visual hallucinations and denies any auditory hallucinations Though content/process: There is no evidence of any delusional thought content and thought process is linear and goal-directed. Memory and concentration: AOX3, grossly intact for the purposes of this session Judgment and insight: Improving mildly Assessment Unspecified bipolar and related disorder Rule out intermittent explosive disorder Social anxiety disorder Autism spectrum disorder Cannabis use disorder Nicotine dependence Plan: -Patient continues to meet criteria for inpatient psychiatric admission for symptom stabilization and safety. Patient has signed adult voluntary form and medication consent and was placed in patient's chart. -Medications: Increase Risperdal to 1 mg twice daily for bipolar disorder, continue trazodone 50 mg as needed at bedtime for insomnia -When necessary Ativan and Haldol for agitation/aggression. -Labs: Reviewed -NRT -nicotine patch -SW on board for discharge planning. Encouraged the patient to participate in milieu. Anticipate discharge home later this week to family
[2024-04-23 15:29] LABS: Chol/HDL Ratio 3.25 Ratio; LDL Cholesterol,Calculated 114.4 mg/dL (0.0-131.0)
[2024-04-23] MEDS: risperiDONE 1 MG TAB PO SCH (20:04)
[2024-04-23] MEDS: traZODone HCL 50 MG TAB PO PRN (20:04)
--- NOTE | 2024-04-24 14:02 | P.PN ---
Progress Note - Text Progress Note Date: 04/24/24 Interval History: Patient was seen laying in bed and was directable and agreeable to speak with creative services writer in the room. Patient received as needed Haldol/Ativan yesterday to which she states he became upset after a phone call with his mom yesterday. He claims that things are better between them today and that she is on board with him returning home. He mentions feeling tired today. He states being unsure if his emotions and anger regulation was discussed with the patient today with coping skills sheet provided so that patient is able to better identify triggers for his underlying anger. He does mention less mood swings on the Risperdal. Environmental Control Administrator contacted mother who states patient displays anger 1 phone call but then calm and more encouraging the next. She expressed no concerns with him returning home with her and was thankful for his outpatient appointment being set up for next week for close follow-up. At this time patient denies any suicidal or homicidal ideations, intent or plan. Patient denies any auditory, visual hallucinations and denies any paranoia or delusions. Patient denies any side effects from the medications and has been compliant with meds. Mental Status Exam: General Appearance: Patient appears to be stated age is alert, directable, and cooperative. He has poor grooming Behavior: Patient is calmly seated without any agitated behavior. Speech: Patient's speech is fluent and nonpressured. Mood/Affect: Mood is improving mildly, affect is congruent and blunted but reactive. Suicidality/Homicidality: Patient denies having any suicidal or homicidal ideation intent or plan. Perceptions: Patient denies any visual hallucinations and denies any auditory hallucinations Though content/process: There is no evidence of any delusional thought content and thought process is linear and goal-directed. Memory and concentration: AOX3, grossly intact for the purposes of this session Judgment and insight: Improving mildly Assessment Unspecified bipolar and related disorder Rule out intermittent explosive disorder Social anxiety disorder Autism spectrum disorder Cannabis use disorder Nicotine dependence Plan: -Patient continues to meet criteria for inpatient psychiatric admission for symptom stabilization and safety. Patient has signed adult voluntary form and medication consent and was placed in patient's chart. -Medications: Continue Risperdal 1 mg twice daily for bipolar disorder/mood stabilization, trazodone 50 mg as needed at bedtime for insomnia -When necessary Ativan and Haldol for agitation/aggression. -Labs: Reviewed -NRT -nicotine patch -SW on board for discharge planning. Encouraged the patient to participate in milieu. Anticipate discharge back home with parents tomorrow
[2024-04-25 06:18] VITALS: BP 119/76; PULSE 90; RESP 16; TEMP 97.9
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
== END 2024-04-25 10:51 | disposition home or self-care (01) | DRG 753 ==
LOC: EC 12:36 → 3MHU 16:24
PROVIDERS: ADMIT Psychiatry & Neurology Psychiatry; ATTEND Psychiatry & Neurology Psychiatry
DX: F31.9 Bipolar disorder, unspecified (principal); F12.10 Cannabis abuse, uncomplicated; F17.290 Nicotine dependence, other tobacco product, uncomplicated; F22 Delusional disorders; F40.10 Social phobia, unspecified; F84.0 Autistic disorder; G40.909 Epilepsy, unspecified, not intractable, without status epilepticus; S09.90XA Unspecified injury of head, initial encounter; Z56.0 Unemployment, unspecified; Z79.899 Other long term (current) drug therapy; Z71.51 Drug abuse counseling and surveillance of drug abuser; G47.00 Insomnia, unspecified
CPT/HCPCS: 70450; 80053; 80061; 82075; 82248; 83036; 84443; 85025; 87635; 99285

== ENCOUNTER → 2024-05-26 | Outpatient (CLI) | payer OTHER ==
[2024-05-26 16:17] LABS: ALT 16 U/L (10-49); AST 23 U/L (14-35); Albumin 4.6 g/dL (3.8-4.9); Alkaline Phosphatase 87 U/L (41-126); BUN/Creat Ratio 12.67 Ratio (12.00-20.00); Blood Urea Nitrogen 11.4 mg/dL (9.0-27.0); Calcium 9.6 mg/dL (8.7-10.3); Carbon Dioxide 25.4 mmol/L (21.6-31.8); Chloride 106 mmol/L (96-109); Globulin 2.3 g/dL (1.6-3.3); Glucose 82 mg/dL (70-110); Potassium 4.4 mmol/L (3.5-5.5); Sodium 142 mmol/L (135-145); Total Bilirubin 0.4 mg/dL (0.3-1.2); Total Protein 6.9 g/dL (6.2-8.2)
[2024-05-26 17:02] LABS: Basophils # (A) 0.06 X 10*3/uL (0.00-0.10); Basophils % (A) 0.9 %; Eosinophils # (A) 0.41 X 10*3/uL (0.04-0.35); Eosinophils % (A) 6.3 %; HCT 47.8 % (39.6-50.0); HGB 16.3 g/dL (13.0-17.0); Lymphocytes # (A) 1.75 X 10*3/uL (0.90-5.00); Lymphocytes % (A) 26.9 %; MCH 31.2 pg (27.0-32.0); MCHC 34.1 g/dL (32.0-37.0); MCV 91.6 FL (80.0-97.0); Mean Platelet Volume 9.8 FL (9.5-12.2); Monocytes # (A) 0.61 X 10*3/uL (0.20-1.00); Monocytes % (A) 9.4 %; NRBC Per 100 WBC 0 X 10*3/uL (0.00-0.01); Neutrophils # (A) 3.65 X 10*3/uL (1.80-7.70); Neutrophils % (A) 56.2 %; Platelet Count 273 X 10*3/uL (140-440); RBC 5.22 X 10*6/uL (4.40-5.60); RDW 11.8 % (11.5-14.5)
== END | disposition home or self-care (01) ==
LOC: LABWHC1 08:28
PROVIDERS: ATTEND Nurse Practitioner Acute Care
DX: Z51.81 Encounter for therapeutic drug level monitoring (principal); R56.9 Unspecified convulsions
CPT/HCPCS: 36415; 80053; 80177; 85025

== ENCOUNTER 2024-09-17 05:42 | Emergency (ER) | payer OTHER ==
--- NOTE | 2024-09-17 06:42 | ED ---
Seizure HPI - General Chief Complaint: Seizure Stated Complaint: Seizure, vomiting Time Seen by Provider: 09/17/24 05:59 Source: patient, RN notes reviewed Mode of arrival: ambulatory Limitations: no limitations - History of Present Illness Initial Comments: 89-year-old male presents emergency department with mother for evaluation of seizure. Patient had seizure around 5 AM this morning. Patient is on Keppra states that he supposed take atorvastatin but has not been taking it twice daily states he usually forgets. Patient denies any injury no tongue lacerations. Patient seizure lasting approximately a minute and a half. Patient does complain of headache but states this is normal after seizure. Patient states his last seizure was a few weeks ago. - Related Data Previous Rx's Medication Instructions Recorded levETIRAcetam [Keppra] 750 mg PO Q12H #60 tab 04/03/24 Nicotine 14Mg/24Hr Patch [Habitrol] 1 patch TRANSDERM DAILY patch 04/25/24 Nicotine Gum (Polacrilex) 2 mg BUCCAL Q4HR PRN pieceofgum 04/25/24 [Nicorette] risperiDONE [RisperDAL] 1 mg PO BID 14 Days #28 tab 04/25/24 traZODone HCL [Desyrel] 50 mg PO HS PRN 14 Days #14 tab 04/25/24 Allergies Allergy/AdvReac Type Severity Reaction Status Date / Time gluten Allergy Unknown Verified 09/17/24 05:49 lactose AdvReac Diarrhea Verified 09/17/24 05:49 red dye AdvReac inflammatio Verified 09/17/24 05:49 n Review of Systems ROS Statement: Those systems with pertinent positive or pertinent negative responses have been documented in the HPI. ROS Other: All systems not noted in ROS Statement are negative. Past Medical History Past Medical History: Seizure Disorder History of Any Multi-Drug Resistant Organisms: None Reported Past Surgical History: No Surgical Hx Reported Past Anesthesia/Blood Transfusion Reactions: No Reported Reaction Past Psychological History: ADD/ADHD Smoking Status: Current every day smoker, Vaper Past Alcohol Use History: Occasional Past Drug Use History: None Reported General Exam Limitations: no limitations General appearance: alert, in no apparent distress Head exam: Present: atraumatic, normocephalic, normal inspection Eye exam: Present: normal appearance, PERRL, EOMI. Absent: scleral icterus, conjunctival injection, periorbital swelling ENT exam: Present: normal exam, normal oropharynx, mucous membranes moist Neck exam: Present: normal inspection, full ROM. Absent: tenderness, meni ngismus, lymphadenopathy Respiratory exam: Present: normal lung sounds bilaterally. Absent: respiratory distress, wheezes, rales, rhonchi, stridor Cardiovascular Exam: Present: regular rate, normal rhythm, normal heart sounds. Absent: systolic murmur, diastolic murmur, rubs, gallop, clicks GI/Abdominal exam: Present: soft, normal bowel sounds. Absent: distended, tenderness, guarding, rebound, rigid Neurological exam: Present: alert, oriented X3 Skin exam: Present: warm, dry, intact, normal color. Absent: rash Course Vital Signs 09/17/24 09/17/24 09/17/24 05:45 06:00 07:22 Temperature 97.5 F L 97.6 F Pulse Rate 66 67 58 L Respiratory 18 16 20 Rate Blood Pressure 111/73 92/61 102/70 O2 Sat by Pulse 99 99 97 Oximetry Medical Decision Making - Medical Decision Making Was pt. sent in by a medical professional or institution (, PA, STRATEGY CONSULTANT, urgent care, hospital, or halfway...) When possible be specific @ -No Did you speak to anyone other than the patient for history (EMS, parent, family, police, friend...)? What history was obtained from this source @ -No Did you review nursing and triage notes (agree or disagree)? Why? @ -I reviewed and agree with nursing and triage notes Were old charts reviewed (outside hosp., previous admission, EMS record, old EKG, old radiological studies, urgent care reports/EKG's, halfway records)? Report findings @ -No old charts were reviewed Differential Diagnosis (chest pain, altered mental status, abdominal pain women, abdominal pain men, vaginal bleeding, weakness, fever, dyspnea, syncope, headache, dizziness, GI bleed, back pain, seizure, CVA, palpatations, mental health, musculoskeletal)? @ -Differential Seizure: Recurrent seizure disorder, febrile seizure, alcohol withdrawal, stimulants, meningitis, encephalitis, intercranial hemorrhage, intracranial tumor, stroke, eclampsia, thyrotoxicosis, hypocalcemia, hyponatremia, hypernatremia, hypomagnesemia, psychogenic, this is not meant to be an all-inclusive list. EKG interpreted by me (3pts min.). @ -As above X-rays interpreted by me (1pt min.). @ -None done CT interpreted by me (1pt min.). @ -None done U/S interpreted by me (1pt. min.). @ -None done What testing was considered but not performed or refused? (CT, X-rays, U/S, labs)? Why? @ -None What meds were considered but not given or refused? Why? @ -None Did you discuss the management of the patient with other professionals (professionals i.e. DrIrving, PA, STRATEGY CONSULTANT, lab, RT, psych nurse, social worker health services, wool mixer, teacher, project control officer, case planner)? Give summary @ -No Was smoking cessation discussed for >3mins.? @ -No Was critical care preformed (if so, how long)? @ -No Were there social determinants of health that impacted care today? How? (Homelessness, low income, unemployed, alcoholism, drug addiction, transportation, low edu. Level, literacy, decrease access to med. care, custodial, rehab)? @ -No Was there de-escalation of care discussed even if they declined (Discuss DNR or withdrawal of care, Hospice)? DNR status @ -No What co-morbidities impacted this encounter? (DM, HTN, Smoking, COPD, CAD, Cancer, CVA, ARF, Chemo, Hep., AIDS, mental health diagnosis, sleep apnea, morbid obesity)? @ -Seizure history Was patient admitted / discharged? Hospital course, mention meds given and route, prescriptions, significant lab abnormalities, going to OR and other pert inent info. @ -[Discharge patient presented after breakthrough seizure. Laboratory studies unremarkable. This more likely related to medication noncompliance we discussed importance of medication compliance and close follow-up. Patient does not drive instructed he cannot drive. Patient was given a dose of Keppra. Undiagnosed new problem with uncertain prognosis? @ -No Drug Therapy requiring intensive monitoring for toxicity (Heparin, Nitro, Insulin, Cardizem)? @ -No Were any procedures done? @ -No Diagnosis/symptom? @ -Seizure Acute, or Chronic, or Acute on Chronic? @ -Acute Uncomplicated (without systemic symptoms) or Complicated (systemic symptoms)? @ -complicated Side effects of treatment? @ -No Exacerbation, Progression, or Severe Exacerbation? @ -No Poses a threat to life or bodily function? How? (Chest pain, [place], MT, pneumonia, PE, COPD, DKA, ARF, appy, cholecystitis, CVA, Diverticulitis, Homicidal, Suicidal, threat to staff... and all critical care pts) @ -No - Lab Data Result diagrams: 09/17/24 07:22 09/17/24 07:22 Lab Results 09/17/24 09/17/24 Range/Units 07:22 07:22 WBC 12.65 H (4.50-10.00) 10*3/uL RBC 5.11 (4.40-5.60) 10*6/uL Hgb 16.2 (13.0-17.0) g/dL Hct 44.6 (39.6-50.0) % MCV 87.3 (80.0-97.0) fL MCH 31.7 (27.0-32.0) pg MCHC 36.3 (32.0-37.0) g/dL Plt Count 254 (140-440) 10*3/uL MPV 9.2 L (9.5-12.2) fL Immature Gran % (Auto) 0.6 % Neutrophils % 78.3 % Lymphocytes % 12.5 % Monocytes % 8.0 % Eosinophils % 0.3 % Basophils % 0.3 % Immature Gran # 0.07 H (0.00-0.04) 10*3/uL Neutrophils # 9.91 H (1.80-7.70) 10*3/uL Lymphocytes # 1.58 (0.90-5.00) 10*3/uL Monocytes # 1.01 H (0.20-1.00) 10*3/uL Eosinophils # 0.04 (0.04-0.35) 10*3/uL Basophils # 0.04 (0.00-0.10) 10*3/uL Sodium 138 (137-145) mmol/L Potassium 4.1 (3.5-5.1) mmol/L Chloride 106 (98-107) mmol/L Carbon Dioxide 26 (22-30) mmol/L Anion Gap 6 mmol/L BUN 10 (9-20) mg/dL Creatinine 0.72 (0.66-1.25) mg/dL Est GFR (CKD-EPI)AfAm >90 (>60 ml/min/1.73 sqM) Est GFR (CKD-EPI)NonAf >90 (>60 ml/min/1.73 sqM) Glucose 93 (74-99) mg/dL Calcium 9.3 (8.4-10.2) mg/dL Magnesium 2.1 (1.6-2.3) mg/dL Total Bilirubin 0.4 (0.2-1.3) mg/dL AST 24 (17-59) U/L ALT 17 (4-49) U/L Alkaline Phosphatase 71 (38-126) U/L Total Protein 6.5 (6.3-8.2) g/dL Albumin 4.3 (3.5-5.0) g/dL - EKG Data -: EKG Interpreted by Me EKG Comments: EKG performed at 6: 01 sinus rhythm with a rate of 61 W[place] 155 QRS 113 QT/QTc 413/415 Disposition Clinical Impression: Generalized seizure Disposition: HOME SELF-CARE Condition: Stable Instructions (If sedation given, give patient instructions): Seizure/Epilepsy Discharge Instructions & Follow-Up Additional Instructions: Please return to the Emergency Department if symptoms worsen or any other concerns. Is patient prescribed a controlled substance at d/c from ED?: No Referrals: Curt Maurer MD [Primary Care Provider] - 1-2 days Time of Disposition: 09:07
[2024-09-17] MEDS: levETIRAcetam IV 500 MG/5 ML VIAL IVP STA (07:16)
[2024-09-17] MEDS: SODIUM CHLORIDE 0.9% 1,000 ML IV STA (07:17)
[2024-09-17 07:40] LABS: Basophils # (A) 0.04 10*3/uL (0.00-0.10); Basophils % (A) 0.3 %; Eosinophils # (A) 0.04 10*3/uL (0.04-0.35); Eosinophils % (A) 0.3 %; HCT 44.6 % (39.6-50.0); HGB 16.2 g/dL (13.0-17.0); Lymphocytes # (A) 1.58 10*3/uL (0.90-5.00); Lymphocytes % (A) 12.5 %; MCH 31.7 pg (27.0-32.0); MCHC 36.3 g/dL (32.0-37.0); MCV 87.3 fL (80.0-97.0); Mean Platelet Volume 9.2 fL (9.5-12.2); Monocytes # (A) 1.01 10*3/uL (0.20-1.00); Neutrophils # (A) 9.91 10*3/uL (1.80-7.70); Neutrophils % (A) 78.3 %; Platelet Count 254 10*3/uL (140-440); RBC 5.11 10*6/uL (4.40-5.60); RDW 11.4 % (11.5-14.5); WBC 12.65 10*3/uL (4.50-10.00)
[2024-09-17 08:15] LABS: ALT 17 U/L (4-49); AST 24 U/L (17-59); African American GFR (CKD) >90 (>60 ml/min/1.73 sqM); Albumin 4.3 g/dL (3.5-5.0); Alkaline Phosphatase 71 U/L (38-126); Anion Gap 6 mmol/L; Blood Urea Nitrogen 10 mg/dL (9-20); Calcium 9.3 mg/dL (8.4-10.2); Carbon Dioxide 26 mmol/L (22-30); Chloride 106 mmol/L (98-107); Glucose 93 mg/dL (74-99); Magnesium 2.1 mg/dL (1.6-2.3); Non-African American GFR(CKD) >90 (>60 ml/min/1.73 sqM); Potassium 4.1 mmol/L (3.5-5.1); Sodium 138 mmol/L (137-145); Total Bilirubin 0.4 mg/dL (0.2-1.3); Total Protein 6.5 g/dL (6.3-8.2)
[2024-09-17 09:21] VITALS: BP 104/52; PULSE 72; RESP 22; TEMP 97.8
== END 2024-09-17 09:20 | disposition home or self-care (01) ==
LOC: EC 05:42
DX: G40.909 Epilepsy, unspecified, not intractable, without status epilepticus (principal); F17.290 Nicotine dependence, other tobacco product, uncomplicated; Z88.8 Allergy status to other drugs, medicaments and biological substances; Z91.011 Allergy to milk products
CPT/HCPCS: 36415; 93005; 80053; 83735; 85025; 99284; 96374; 96361; J1953